=== PATIENT | female | born 1940 | race Caucasian/White ===

== ENCOUNTER 2018-10-09 09:11 | Inpatient (IN) ==
[2018-10-09] MEDS ORDERED: SOLU-MEDROL IV ONE (09:22)
[2018-10-09] MEDS ORDERED: DUONEB (A & A) INH ONE (09:22)
[2018-10-09] MEDS ORDERED: SOLU-MEDROL ONE (09:27)
[2018-10-09 09:33] LABS: ALLEN TEST YES; BE -3.9 mmoll (-3.0-3.0); BLOOD TYPE ARTERIAL; HCO3-(ACT) 21.9 mmoll (20.0-26.0); METHB 0.3 % (0.0-1.5); O2(CT) 11.8 mL/dL (15.0-23.0); O2HB 94.2 % (95.0-99.0); PCO2(98.6) 47 mmHg (35-45); PO2(98.6) 74 mmHg (60-100); SAMPLE BLOOD; SAO2 97.3 % (95.0-100.0); THB 8.8 g/dL (11.5-17.4); pH(98.6) 7.29 (7.35-7.45)
[2018-10-09 09:34] LABS: MODALITY VENTIMASK
--- NOTE | 2018-10-09 09:35 | EKG Report ---
Test Performed on : 10/09/2018 09:17:07 AM Test Reason : JR Blood Pressure : / mmHG Vent. Rate : 125 BPM Atrial Rate : 125 BPM P-R Int : 140 ms QRS Dur : 090 ms QT Int : 318 ms P-R-T Axes : 086 076 184 degrees QTc Int : 458 ms Sinus tachycardia. Left ventricular hypertrophy with repolarization abnormality Abnormal ECG When compared with ECG of 23-FEB-2018 06:21, ST now depressed in Inferior leads Unconfirmed Result
--- NOTE | 2018-10-09 09:38 | PROVIDER DOCUMENTATION ---
HPI-General Adult - General Stated Complaint: SOB Time Seen by Provider: 10/09/18 09:12 Source: patient, EMS Allergies/Adverse Reactions: Patient Allergies Allergy/AdvReac Type Severity Reaction Status Date / Time No Known Allergies Allergy Verified 06/30/18 14:46 Home Medications: Home Medication List Medication Instructions Recorded Confirmed Last Taken Type Gabapentin 800 mg PO BID 05/24/15 06/25/18 02/07/17 21:00 History LISINOpril [Prinivil] 20 mg PO QHS 05/24/15 06/25/18 06/24/18 History Rosuvastatin Calcium [Crestor] 40 mg PO QHS 05/24/15 06/25/18 06/24/18 History Sitagliptin [Januvia] 100 mg PO QHS 05/24/15 06/25/18 06/24/18 History Amitriptyline [Elavil] 50 mg PO HS 02/02/16 06/25/18 06/24/18 History Albuterol 2.5MG/Ipratrop 0.5MG 3 ml INH Q4-6H PRN PRN neb 02/11/17 06/25/18 Unknown Rx [Duoneb (A & A)] Hydrocodone/Acetaminophen [Lorcet 1 tab PO Q4H PRN PRN #30 tab 02/11/17 06/25/18 Unknown Rx 5-325 mg Tablet] Methylprednisolone [Medrol Dosepak] 4 mg PO DIRECTED #1 pkg 02/27/18 06/25/18 Unknown Rx Amoxicillin/Potassium Clav 1 ea PO BID 06/25/18 06/25/18 06/24/18 History [Augmentin 875-125 Tablet] - History of Present Illness -Gen Adult Nature of Presenting Problems: Pt. is 78 yof that presents with c/o SOB. She is brought in by EMS and it is unclear when she began to have this trouble. She has a Hx of COPD and DM. The patient can barely speak and EMS gave one neb treatment on the way to the hospital. Pt. is on 2L O2 at home all the time. Location of Pain/Injury: reports: none. denies: head, face, mouth, neck, chest, upper extremity, hand(s), abdomen, back, pelvis, genitalia, lower extremity, feet, upper body, lower body, generalized, other Pain Radiation: reports: no radiation. denies: arm(s), back, buttocks, chest, epigastric, feet, groin, jaw, flank (L), legs (lower), LLQ, LUQ, neck, periumbilical, flank (R), RLQ, RUQ, shoulder(s), scapula, scrotal, sternal notch, suprapubic, legs (upper), urethral, vaginal, other Quality of Pain: reports: none. denies: aching, burning, pressure, sharp, throbbing, tightness Severity: reports: severe. denies: mild, moderate Onset/Duration: reports: unsure Timing: reports: still present, constant. denies: improving, intermittent, changing over time, getting worse Context/Activities at Onset: reports: none. denies: light activity, moderate activity, vigorous activity, recent emotional stress, recent physical stress, recent trauma history, possible bad food, cold exposure, eating, out of country travel, rest, sleep, sexual activity, other Modifying Factors: improves with: nothing Associated Symptoms: reports: shortness of breath. denies: denies symptoms, anxiety, arm pain, back/neck pain, chest pain, constipation, cough, diaphoresis, diarrhea, dizziness, EENT symptoms, fatigue, fever/chills, genitourinary problems, headaches, heartburn, joint pain, loss of appetite, malaise, muscle aches, sinus congestion/drainage, nausea, rash, seizure, sensory/motor loss, pain with inspiration, swelling/mass in abdomen, syncope, vomiting, weakness, trouble walking, other Similar Symptoms Previously?: Yes Recently seen or treated by another doctor?: No Review of Systems - Adult - REVIEW OF SYSTEMS - ADULT Constitutional: reports: no symptoms reported Eyes: reports: no symptoms reported Ears, Nose, Mouth & Throat: reports: no symptoms reported Cardiovascular: reports: no symptoms reported Respiratory: reports: see HPI, shortness of breath. denies: cough, dyspnea on exertion, pleurisy Gastrointestinal: reports: no symptoms reported Genitourinary: reports: no symptoms reported Musculoskeletal: reports: no symptoms reported Integumentary: reports: no symptoms reported Neurological: reports: no symptoms reported Psychiatric: reports: no symptoms reported Past History - Adult - PAST MEDICAL HISTORY-ADULT Review of Records: reports: Old Records Reviewed, Nursing Assessment Review, Medications Reviewed, Social history reviewed & non-contributory. Major Childhood Illnesses: reports: denies history Cardiovascular: reports: HTN Respiratory: reports: denies history Gastrointestinal: reports: denies history Obstetrical/Gynecological: reports: denies history Genitourinary: reports: denies history Musculoskeletal: reports: denies history Neurological: reports: CVA Endocrine/Immune: reports: Diabetes Other Conditions: reports: denies history - PRIOR SURGERIES/PROCEDURES Surgical/Procedure History: reports: other (rectal sx ) - IMMUNIZATION STATUS Childhood Immunizations: See Nurse Assessment Flu Vaccine: See Nurse Assessment - FAMILY HISTORY Family History: reviewed, not pertinent - SOCIAL HISTORY Smoking: denies Physical Exam-General - PHYSICAL EXAM-ADULT Initial Vital Signs Reviewed: Yes - CONSTITUTIONAL General Appearance: alert, severe distress, thin. negative: anxious, slow to respond, obtunded, combative - EYES Eyes: PERRL/EOMI, pink conjunctivae - HEAD, EARS, NOSE, MOUTH & THROAT HENMT: normocephalic/atraumatic, moist mucous membranes - NECK Neck: non-tender, full range of motion, supple, normal inspection - RESPIRATORY Respiratory: decreased breath sounds, increased rate. negative: crackles, rales, rhonchi - CARDIOVASCULAR Cardiovascular: regular rate, rhythm, tachycardia - GASTROINTESTINAL (ABDOMEN) Abdominal Exam: normal bowel sounds, non tender, soft - LYMPHATIC Lymphatic: no adenopathy - MUSCULOSKELETAL Back Exam: normal inspection, no CVA tenderness, no vertebral tenderness Extremity: normal range of motion, normal inspection Peripheral Pulses: radial (R): 2+, radial (L): 2+ - SKIN Integumentary: normal color, normal turgor, warm/dry - NEUROLOGIC Neurologic: grossly normal, no motor/sensory deficits - PSYCHIATRIC Psych/Mental Status: normal thought content, normal thought process, oriented x 3, anxious. negative: depressed affect, paranoid, tearful Progress - PLAN OF CARE/RESULTS Progress/Plan/Lab Results: Laboratory Results - last 24 hr 10/09/18 09:22 Specimen Type ARTERIAL Sample Site R RADIAL pH 7.29 L pCO2 47 H pO2 74 HCO3 21.9 Base Excess -3.9 L Oxyhemoglobin 94.2 L ABG O2 Sat (Calculated) 11.8 L ABG O2 Saturation 97.3 ABG Carboxyhemoglobin 2.90 H ABG Methemoglobin 0.3 Poncho Test YES A-a O2 Difference 224.0 Total Hemoglobin 8.8 L Lactate 2.80 H Liter Flow 15.0 Blood Gas Modality VENTIMASK FiO2 % 50.0 Orders Category Date Time Status Saline Loc NOW Care 10/09/18 09:21 Active CHEST-PORTABLE [RAD] Stat Exams 10/09/18 09:24 Ordered ABG [RESP] Routine Lab 10/09/18 09:22 Completed CBC WITH ELECTRONIC DIFF [HEME] Stat Lab 10/09/18 09:21 Uncollected CK PROFILE [SP CHEM] Stat Lab 10/09/18 09:21 Uncollected COMPREHENSIVE METABOLIC PANEL [CHEM] Stat Lab 10/09/18 09:22 Uncollected PRO B-NATRIURETIC PEPTIDE Stat Lab 10/09/18 09:22 Ordered TROPONIN T Stat Lab 10/09/18 09:22 Uncollected URINALYSIS W/POSS RFLX CULT [URINALYSIS] Stat Lab 10/09/18 09:22 Uncollected Albuterol 2.5MG/Ipratrop 0.5MG [Duoneb (A & A)] Med 10/09/18 09:22 Discontinued 6 ml INH NOW ONE Methylprednisolone Sod Succ [Solu-Medrol] Med 10/09/18 09:27 Discontinued 125 mg .ROUTE .STK-MED ONE Methylprednisolone Sod Succ [Solu-Medrol] Med 10/09/18 09:22 Discontinued 80 mg IV NOW ONE Aerosol Treatments Routine Oth 10/09/18 09:22 Active Aerosol Treatments Stat Oth 10/09/18 09:22 Active EKG [EKG] Stat Ther 10/09/18 09:21 Ordered Result Diagrams: 10/09/18 09:32 10/09/18 09:32 - EKG 1 Time of EKG reading by physician:: 09:21 EKG Read and Signed by:: Vangie Friedman EKG Interpretation (*Must complete 3 of following elements*): Abnormal Rate: 125 Rhythm: Sinus Tachycardia [place]: normal QRS: normal OK Interval: normal ST Wave: normal - XRAY 1 XRAY Study: Chest ([facility] - [address], [address], [place] [address] [facility] - [address] [place] [address] Department of Imaging Patient: TEREZA SCHAEFER Date: 10/09/18#: [id number] : 1941ADM Status: REG ERAcct#: [id number] Age/Sex: 78/FRoom/Bed: Loc: ED Ordering Physician: Austen Isaac Family Physician: Jigar Arevalo Reason for Procedure: SOB ___ Signed EXAM: CHEST-PORTABLE HISTORY: SOB TECHNIQUE: Chest single view COMPARISON: 06/30/2018 FINDINGS: Interval development of small pleural effusions. There are mild increased interstitial markings. Heart is borderline mildly prominent. Moderate scoliosis. IMPRESSION: Mild pulmonary edema with small pleural effusions Electronically signed by Kofi Nolasco 10/09/2018 10:13 AM 10/09/18 1013 Interpreting Physician: Kofi Nolasco MD Dictated Date/Time: 10/09/18 1013 cc: Austen Isaac; Jigar Aervalo) XRAY Interpretation: See note - CONSULTS/PCP/HOSPITALIST Notification #1 *Consult/PCP/Hospitalist*: FLORENTIN Motta for Dr. Gaines Time Discussed: 11:42 Reason/Comments: Admission Consult Disposition: Will see in ED, Admit Departure - Departure Date of Disposition Decision: 10/09/18 Time of Disposition Decision: 10:08 DIAGNOSIS: COPD exacerbation Pulmonary edema Qualifiers: Chronicity: acute Qualified Code(s): J81.0 - Acute pulmonary edema Disposition: ADMITTED INPATIENT 09 Certified Medical Emergency: Emergent Condition: Stable Referrals and Follow-Ups: Jigar Arevalo CRNP [Primary Care Provider] - - Critical Care Note This patient required my direct & personal management of CC.: Yes Total Time (mins): 35 Critical Care Statement: This patient required my direct personal management to treat or rule out processes, the absence of which, could potentiallly result in sudden, clinically significant life or limb threatening deterioration. Attestation - Physician/ CRYS Attestation Patient care was provided by Advanced Practice Provider:: Yes Advanced Practice Provider:: Austen Isaac Advanced Practice Provider documentation review:: The Mid-level provider documentation, treatment plan and medical decision making was reviewed by the physician who agrees with all treatment and medical decision making by the MLP. The physician spent face to face time with patient:: No Advanced Practice Provider documentation review:: Supervising physician onsite and consulted in the evaluation and care of this patient. The physician did not have a face to face encounter with the patient.
[2018-10-09 09:55] LABS: BASO# 0.05 X1000 (0.0-0.2); BASO% 0.4 % (0.0-0.8); EOS# 0.17 X1000 (0.0-0.7); EOS% 1.3 % (0.0-10.0); HEMOGLOBIN 8.8 g/dL (12.0-16.0); IMM GRAN# 0.02 X1000 (0.0-0.04); IMM GRAN% 0.2 % (0.0-0.5); LYMPH# 1.62 X1000 (1.2-3.4); LYMPH% 12.4 % (20.5-51.1); MCH 23.1 PG (27-31); MCHC 29.3 g/dL (33-37); MCV 78.7 FL (81-99); MONO# 0.95 X1000 (0.11-0.59); MONO% 7.3 % (1.7-9.3); MPV 9.7 FL (7.4-10.4); NEUT# 10.25 X1000 (1.4-6.5); NEUT% 78.4 % (42.2-75.2); PLT 385 X1000 (130-400); RBC 3.81 XMIL (4.2-5.4); RDW 18.4 % (11.5-14.5); WBC 13.06 X1000 (4.8-10.8)
--- NOTE | 2018-10-09 10:16 | Diag Imaging Result Doc PS360 ---
EXAM: CHEST-PORTABLE HISTORY: SOB TECHNIQUE: Chest single view COMPARISON: 06/30/2018 FINDINGS: Interval development of small pleural effusions. There are mild increased interstitial markings. Heart is borderline mildly prominent. Moderate scoliosis. IMPRESSION: Mild pulmonary edema with small pleural effusions Electronically signed by Kofi Nolasco 10/09/2018 10:13 AM
[2018-10-09 10:18] LABS: AGAP 12; ALB/GLOB RATIO 0.9; ALBUMIN 3.9 g/dL (3.5-5.0); ALKALINE PHOSPHATASE 62 U/L (32-104); BUN 22 mg/dL (8-22); CALCIUM 9.2 mg/dL (8.8-10.2); CHLORIDE 105 mmol/L (98-107); CK PROFILE 59 U/L (24-173); COSMO 287; CREATININE 0.6 mg/dL (0.5-0.9); ESTIMATED GFR > 60; GLUCOSE 246 mg/dL (70-104); GOT 22 U/L (10-30); GPT 11 U/L (10-36); POTASSIUM 4.6 mmol/L (3.5-5.1); SODIUM 138 mmol/L (136-145); TCO2 21 mmol/L (25-35); TOTAL BILIRUBIN 0.51 mg/dL (0.20-1.00); TOTAL PROTEIN 8.2 g/dL (6.3-8.3)
[2018-10-09] MEDS ORDERED: LASIX IV ONE (10:27)
[2018-10-09 10:55] LABS: INR 1.15; PROTIME 14.8 Seconds (11.0-16.0)
[2018-10-09 10:57] LABS: PTT 30.9 Seconds (22.3-41.8)
[2018-10-09 10:59] LABS: URINE SOURCE CATH
[2018-10-09] MEDS ORDERED: VANCOMYCIN 1 GM/NS 1 GM/250 ML IVPB IV ONE (11:41)
[2018-10-09] MEDS ORDERED: ZOSYN 3.375 GM in NS 50 ML IV ONE (11:41)
[2018-10-09 11:55] LABS: BILIRUBIN URINE NEGATIVE (NEGATIVE); BLOOD URINE NEGATIVE (NEGATIVE); COLOR YELLOW; GLUCOSE URINE NEGATIVE (NEGATIVE); KETONE URINE NEGATIVE (NEGATIVE); LEUKOCYTES URINE NEGATIVE (NEGATIVE); NITRITE URINE NEGATIVE (NEGATIVE); PROTEIN URINE 200 mg/dL (NEGATIVE); SP GRAVITY URINE 1.019; TURBIDITY URINE CLEAR (CLEAR); UROBILINOGEN URINE 2 mg/dL (NORMAL)
[2018-10-09 11:56] LABS: UR EPITHELIAL CELLS <10 /HPF (<10); URINE BACTERIA NEGATIVE /HPF; URINE RBC <10 /HPF (<10); URINE WBC <10 /HPF (<10)
[2018-10-09] MEDS ORDERED: TYLENOL PO PRN (12:10)
[2018-10-09] MEDS ORDERED: ZOFRAN IV PRN (12:10)
[2018-10-09] MEDS ORDERED: NORCO-7.5 PO PRN (12:10)
[2018-10-09] MEDS ORDERED: VANCOMYCIN IV PER PHARMACY MISC SCH (12:15)
--- NOTE | 2018-10-09 13:44 | HISTORY AND PHYSICAL ---
PRIMARY CARE PROVIDER: Shilpa LERMA. CHIEF COMPLAINT: Shortness of breath. HISTORY OF PRESENT ILLNESS: Ms. Hortensia Lee is an 78-year-old female with a medical history of COPD on 2 L of oxygen who has had to be intubated in the past when she was admitted here, I believe it was January or the last day of 2017 into the 1st part of the year, but currently presented with hypoxia, O2 saturations in the 70s on her 2 L of oxygen. She was given steroids, higher amounts of oxygen, nebulizers which improved her dramatically. She is a little tachypneic, but is refusing the BiPAP, is unsure about how she wants to go about a DNR status or not, will have to further discuss that with [place]. [place] [address] and elevated lactate of 2.8, mildly acidotic on her pH and so we are going to give her broad-spectrum antibiotics, nebulizer steroids. Will move her to [facility] for closer observation. It is noted that for the last 4 weeks she has complained of a 7 pound weight gain with bilateral lower extremity swelling. She does have a +2 lower extremity pitting edema and this is also the amount of time that she has had increased complaints of shortness of breath that apparently worsened this morning prior to presentation. She does have an occasional productive cough. It is white phlegm. She denies any fever. Denies chest pain. She has received Lasix in the emergency department along with a Gloria catheter and is having a great response to this. She was in the last day of January 2018 when she presented. She also had elevated proBNP at that time. An echocardiogram was performed, but the ejection fraction was 55%. There were really no valvular abnormalities. So it could be a cause of poor nutrition and just excessive fluid volume overload. PAST MEDICAL HISTORY: 1. Hypertension. 2. Hyperlipidemia. 3. Diabetes mellitus type 2. 4. COPD. 5. Chronic back pain. 6. Gastric ulcers. 7. Esophageal stricture. 8. Rectal prolapse. SURGICAL HISTORY: 1. Hysterectomy. 2. Appendectomy. 3. Partial gastrectomy. 4. EGD for foreign body removal secondary to esophageal stricture. 5. Lower back surgery. 6. Repair of rectal prolapse. SOCIAL HISTORY: Half pack per day smoker, quit 3 months ago, has smoked for at least 60 years. Denies alcohol or illicit drug use. She lives at home with her daughter. FAMILY HISTORY: Positive for CAD in the mother. ALLERGIES: No known drug allergies. HOME MEDICATIONS: Not reconciled yet. REVIEW OF SYSTEMS: Fourteen point review of systems are complete and all were negative except for those mentioned above in HPI. PHYSICAL EXAMINATION: VITAL SIGNS: Temperature 98.3 degrees, heart rate 106, respiratory rate 27, blood pressure 147/83, O2 saturation 92 to 93% on nasal cannula. GENERAL: Ms. Hortensia Lee is an 78-year-old female. She is in no acute distress. She is able answer questions appropriately. Actually, she might be in mild distress, but it is not severe. She is a little tachypneic. HEENT: Atraumatic, normocephalic. Pupils equal, round, reactive to light. Extraocular movements intact. Mucous membranes are moist. NECK: Trachea midline. CARDIOVASCULAR: S1, S2. Tachycardic rate and rhythm. No rubs, gallops, or murmurs. There is +2 lower extremity pitting edema, 2+ dorsalis pedal pulses, 2+ radial pulses. Negative for carotid bruits. There is no JVD at this time. There may have been earlier prior to receiving Lasix. PULMONARY: Clear to auscultate bilateral breath sounds. Mild accessory muscle use. Mild work of breathing. Tolerating nasal cannula. GI: Soft, concave. Positive bowel sounds x4. EXTREMITIES: Moves all extremities equally. Decreased range of motion. NEUROLOGIC: A and O x3. Follows commands. Sensory is intact. SKIN: Warm, dry, intact. LABORATORY DATA: White blood cells 71489, hemoglobin 8, hematocrit 30, platelet count 285,000. INR is 1.15, PTT is 30.9. ABGs, pH 7.29, pCO2 47, PO2 74, bicarb 21, base excess -3.9, saturation 94%. Carboxyhemoglobin 2.9. Lactate 2.8 and that was on a Venturi mask. Sodium 138, potassium 4.6, BUN 22, creatinine 0.6, glucose 246, calcium 9.2. Magnesium 2.1. Bilirubin 0.51, AST 22, ALT 11. CK 59. Troponin less than 0.01. ProBNP 54298. Albumin 3.9. Serum lactate 2.4. ABG lactate 2.8. Urinalysis, 200 protein, 2 urobilinogen, acetones negative. IMAGING: Chest x-ray, mild pulmonary edema with small pleural effusions. EKG, is a rate of 125, it is sinus tachycardia, the QTc is 458, it is showing some ST depressions in inferior leads and some LVH. ASSESSMENT AND PLAN: 1. Acute on chronic hypoxemic respiratory failure, initially required 15 L 100% non-rebreather, was able to be weaned down after she received nebulizers, steroids and Lasix. Currently, she is on nasal cannula. Refuses to wear BiPAP. PH is 7.29, so will have to repeat that. 2. Chronic obstructive pulmonary disease exacerbation. Nebulizer steroids and antibiotics. 3. Signs of congestive heart failure, systolic. No history of it, but elevated proBNP, pulmonary edema and fluid buildup in the lower extremities. It could just be that she has poor nutritional intake and fluid volume overload. Her kidney function is normal. Will get an echocardiogram today and will schedule her for some Lasix. 4. Hypertension. Once home medications are verified, will get that resumed. 5. Diabetes mellitus type 2. Will do pattern blood glucoses and sliding scale insulin. She has hyperglycemia at this time. 6. Hyperlipidemia. Again, will continue home medications once verified. 7. Chronic back pain. She is requesting her [place] for pain control, so will get her started back on [place]. 8. History of esophageal stricture, rectal prolapse, gastric ulcers, but she is not on any medications at home for this. 9. Possible sepsis. [place]card[place] [address]. Her lactate was as high as 2.8. Given the pulmonary edema and fluid volume overload, she will not get the IV fluids. She is going to get Lasix instead, but she will be started on broad-spectrum antibiotics. Source is unknown. It could be all inflammatory. She will have serial lactates drawn and will follow up on all cultures. 10. Deep venous thrombosis prophylaxis, Lovenox. Dictated by FLORENTIN De Jesus for Carlos Gaines MD cc: FLORENTIN De Jesus MD
[2018-10-09] MEDS: ATROVENT NEB INH SCH ×3 (15:40→23:04)
[2018-10-09] MEDS: XOPENEX NEB INH SCH ×3 (15:41→23:04)
[2018-10-09] MEDS ORDERED: NORCO-10 PO PRN (15:54)
[2018-10-09] MEDS ORDERED: ATIVAN IV ONE (15:56)
[2018-10-09] MEDS ORDERED: SOLU-MEDROL IV SCH (16:00)
[2018-10-09] MEDS: HUMULIN R SUBQ SCH ×2 (16:07→21:08)
[2018-10-09] MEDS ORDERED: DIPRIVAN 1% IV ONE (16:57)
[2018-10-09] MEDS ORDERED: QUELICIN IV ONE ×2 (17:22→17:39)
[2018-10-09] MEDS ORDERED: AMIDATE ONE (17:31)
[2018-10-09] MEDS ORDERED: DIPRIVAN 1% 1,000 MG/100 ML BOTTLE ONE (17:38)
[2018-10-09] MEDS ORDERED: AMIDATE IV ONE (17:39)
[2018-10-09] MEDS: DIPRIVAN 1% 1,000 MG/100 ML BOTTLE IV SCH ×2 (17:43→22:55)
[2018-10-09] MEDS: ZOSYN 3.375 GM in NS 50 ML IV SCH (18:04)
[2018-10-09 18:28] LABS: ALLEN TEST NO; BE -0.4 mmoll (-3.0-3.0); BLOOD TYPE ARTERIAL; HCO3-(ACT) 24.6 mmoll (20.0-26.0); METHB 1.8 % (0.0-1.5); O2(CT) 9.2 mL/dL (15.0-23.0); O2HB 94.5 % (95.0-99.0); PO2(98.6) 91 mmHg (60-100); SAMPLE BLOOD; SAO2 97.4 % (95.0-100.0); SRATE 12 BPM; THB 6.8 g/dL (11.5-17.4); TVOL 450 mL; pH(98.6) 7.27 (7.35-7.45)
[2018-10-09 18:30] LABS: MODALITY VENTILATOR; PCO2(98.6) 58 mmHg (35-45)
--- NOTE | 2018-10-09 18:43 | Diag Imaging Result Doc PS360 ---
CHEST-PORTABLE - 10/09/2018 at 6:13 PM INDICATION: ET tube placement COMPARISON: 9:44 AM FINDINGS: There is an endotracheal tube in good position at about T5-T6. There is severe COPD. There is cardiomegaly and interstitial pulmonary edema. There are trace bilateral pleural effusions. IMPRESSION: Good endotracheal tube placement. Electronically signed by Dallin Santiago 10/09/2018 6:42 PM
[2018-10-09] MEDS: PULMICORT INH SCH (19:57)
[2018-10-09] MEDS: NEURONTIN PO SCH (20:56)
[2018-10-09] MEDS ORDERED: JANUVIA PO SCH (21:00)
[2018-10-09] MEDS ORDERED: CRESTOR PO SCH (21:00)
[2018-10-09] MEDS ORDERED: ELAVIL PO SCH (21:00)
[2018-10-09] MEDS: LASIX IV SCH (21:16)
[2018-10-09] MEDS: SOLU-MEDROL IV SCH (21:16)
[2018-10-09] MEDS: MORPHINE IV PRN (22:56)
[2018-10-10] MEDS: ZOSYN 3.375 GM in NS 50 ML IV SCH ×4 (01:21→17:45)
[2018-10-10] MEDS: XOPENEX NEB INH SCH ×6 (03:09→22:51)
[2018-10-10] MEDS: ATROVENT NEB INH SCH ×7 (03:09→22:51)
[2018-10-10] MEDS: SOLU-MEDROL IV SCH ×3 (04:20→17:45)
[2018-10-10] MEDS: DIPRIVAN 1% 1,000 MG/100 ML BOTTLE IV SCH ×4 (04:20→19:54)
[2018-10-10 04:27] LABS: ALLEN TEST YES; BE 5.8 mmoll (-3.0-3.0); BLOOD TYPE ARTERIAL; HCO3-(ACT) 29.5 mmoll (20.0-26.0); MODALITY VENTILATOR; O2(CT) 12.3 mL/dL (15.0-23.0); O2HB 96.5 % (95.0-99.0); PCO2(98.6) 45 mmHg (35-45); PO2(98.6) 119 mmHg (60-100); SAMPLE BLOOD; SAO2 99.6 % (95.0-100.0); SRATE 12 BPM; THB 8.9 g/dL (11.5-17.4); TVOL 450 mL; pH(98.6) 7.44 (7.35-7.45)
[2018-10-10] MEDS: HUMULIN R SUBQ SCH ×4 (06:07→22:15)
--- NOTE | 2018-10-10 06:31 | Diag Imaging Result Doc PS360 ---
EXAM: CHEST-PORTABLE HISTORY: pulm edema; sob TECHNIQUE: Portable chest single view COMPARISON: 10/09/2018 FINDINGS: Endotracheal tube has its tip in the right mainstem bronchus. The lungs remain well expanded. The heart is not enlarged. Small bilateral pleural effusions. The bilateral infiltrates. Moderate scoliosis. IMPRESSION: Endotracheal tube is in the right mainstem bronchus. This should be pulled back several centimeters. This report was discussed with Eder Batista in the ICU on 10/10/2018 at 6:30 AM and was readback. Electronically signed by Kofi Nolasco 10/10/2018 6:29 AM
[2018-10-10 06:45] LABS: INR 1.15; PROTIME 14.9 Seconds (11.0-16.0); PTT 24.5 Seconds (22.3-41.8)
--- NOTE | 2018-10-10 06:53 | EKG Report ---
Test Performed on : 10/10/2018 06:17:45 AM Test Reason : chest pain Blood Pressure : / mmHG Vent. Rate : 078 BPM Atrial Rate : 202 BPM P-R Int : 000 ms QRS Dur : 090 ms QT Int : 466 ms P-R-T Axes : 088 069 087 degrees QTc Int : 531 ms Atrial flutter. with variable AV block. Voltage criteria for left ventricular hypertrophy ST & T wave abnormality, consider anterior ischemia Prolonged QT Abnormal ECG When compared with ECG of 09-OCT-2018 09:17, (Unconfirmed) Significant changes have occurred Confirmed by Maninder Ortiz MD ([id number]) on 10/13/2018 12:04:13 PM
[2018-10-10 07:09] LABS: SODIUM 139 mmol/L (136-145)
[2018-10-10 07:10] LABS: AGAP 13; ALB/GLOB RATIO 0.8; ALBUMIN 3.5 g/dL (3.5-5.0); ALKALINE PHOSPHATASE 51 U/L (32-104); BUN 27 mg/dL (8-22); CALCIUM 8.9 mg/dL (8.8-10.2); CHLORIDE 101 mmol/L (98-107); CK TOTAL 69 U/L (24-173); COSMO 284; CREATININE 0.7 mg/dL (0.5-0.9); ESTIMATED GFR > 60; GLUCOSE 128 mg/dL (70-104); GOT 23 U/L (10-30); GPT 10 U/L (10-36); MAGNESIUM 1.8 mg/dL (1.5-2.7); POTASSIUM 3.7 mmol/L (3.5-5.1); TCO2 25 mmol/L (25-35); TOTAL BILIRUBIN 0.53 mg/dL (0.20-1.00); TOTAL PROTEIN 8.1 g/dL (6.3-8.3)
[2018-10-10] MEDS: PULMICORT INH SCH ×2 (07:36→19:45)
[2018-10-10 07:50] LABS: HEMATOCRIT 28.9 % (37.0-47.0); HEMOGLOBIN 8.5 g/dL (12.0-16.0); LYMPH# 0.84 X1000 (1.2-3.4); LYMPH% 8.8 % (20.5-51.1); MCH 22.9 PG (27-31); MCHC 29.4 g/dL (33-37); MCV 77.9 FL (81-99); MONO# 0.48 X1000 (0.11-0.59); MPV 9.9 FL (7.4-10.4); NEUT# 8.25 X1000 (1.4-6.5); NEUT% 86.2 % (42.2-75.2); PLT 343 X1000 (130-400); RBC 3.71 XMIL (4.2-5.4); RDW 18.6 % (11.5-14.5); WBC 9.57 X1000 (4.8-10.8)
[2018-10-10] MEDS: NEURONTIN PO SCH (09:11)
[2018-10-10] MEDS: LOVENOX SUBQ SCH (09:18)
[2018-10-10] MEDS: LASIX IV SCH ×2 (09:18→20:02)
[2018-10-10] MEDS: VANCOMYCIN 1,000 MG in NS 250 ML IV SCH (09:38)
[2018-10-10 10:14] LABS: BANDS 2 % (0-1); LYMPHS 16 % (21-51); SEGS 82 % (42-75)
[2018-10-10 10:15] LABS: ANISOCYTOSIS 1+; HYPOCHROM 1+; MICROCYTOSIS 1+
[2018-10-10] MEDS ORDERED: SODIUM CHLORIDE 0.9% INJ SCH (11:30)
[2018-10-10] MEDS ORDERED: SOLU-MEDROL IV SCH ×2 (11:45→15:00)
[2018-10-10] MEDS: PROTONIX IV SCH (11:49)
--- NOTE | 2018-10-10 12:07 | PROGRESS NOTE ---
DATE: 10/10/2018 SUBJECTIVE: Patient has no major complaints. OBJECTIVE: Vital Signs: Blood pressure 149/73, heart rate of 85, respiratory rate of 23, temperature was 98.2 degrees. Cardiovascular: Regular rate and rhythm, a little bit tachy. Pulmonary: Bilateral breath sounds. Clear to auscultation. GI: Soft, nontender, nondistended. Bowel sounds are positive. LABORATORY DATA: White count 9.5, H and H 8.5 and 28, platelets 343. A pH 7.44, pCO2 45, PaO2 119. PROBLEM LIST: 1. Acute respiratory failure likely multifactorial. At this point, her chest x-ray to me looks worse on the right base, which I think is more likely related to pneumonia and infiltrate. She has a history of esophageal stricture, so she may have had an aspiration event. Clinically though, she is better. Her pH is better. She is down to 40%. She is breathing comfortably. She is on the ventilator waiting pulmonary final recommendations, but she is improving. 2. Pulmonary edema. Unclear if this is true cardiac failure. It could be takotsubo's. In any case, echocardiogram has been done. Dr. Lechuga has evaluated the patient. Will review the echocardiogram and continue. I still think she has got pulmonary edema, so I will continue diuretics through today. Kidney function is stable. 3. Type 2 diabetes. We will follow closely. She is on steroids because she had a lot of bronchospasm, and I am going to decrease those today and follow. 4. Esophageal stricture. We will need to re-evaluate her gastrointestinal output. I will probably start off with a barium enema if I can, and then we will go from there. She will need proton pump inhibitor and we will follow. 5. Disposition: Pending her clinical status, but overall she has improved since yesterday. Hopefully, continue to improve and proceed with extubation. 6. Aspiration type pneumonia. She is currently on vancomycin and Zosyn. We will continue that for the time being. cc: Carlos Gaines MD
--- NOTE | 2018-10-10 13:46 | ECHO REPORT ---
ORDER DATE: 10/09/2018 MEASUREMENTS: Septal thickness 1.0, left ventricular end-diastole 5.2, posterior wall thickness 0.8, left atrium 5.2. SUMMARY: 1. Technically difficult study due to limited parasternal acoustic window quality. 2. The aortic valve is trileaflet and demonstrates fibrocalcific changes, particularly of noncoronary cusp with reduced aortic valve leaflet mobility. The peak gradient across aortic valve is 30 mmHg with a mean gradient of 16 mmHg. Calculated aortic valve area by Doppler is 1.2 cm2, suggesting moderate aortic stenosis. There is mild aortic regurgitation. Mitral valve leaflets are mildly thickened. Mitral valve opening is adequate. There is moderate mitral regurgitation. Tricuspid valve was without evidence of structural abnormality while pulmonic valve is not well demonstrated. There is moderate tricuspid regurgitation. The estimated systolic PA pressure by Doppler is 70 to 75 mmHg, suggesting moderate to severe pulmonary hypertension. The aortic root is normal size. 3. Normal left ventricular dimensions. There is severe hypokinesis. Estimated left ventricular ejection fraction is approximately 30%. There is severe hypokinesis of the septum and anteroseptal wall. There is also apical hypokinesis. Left atrium is moderately enlarged. The right atrium is [id number] enlarged. The right ventricle is normal in size with grossly preserved right ventricular systolic function. 4. No pericardial effusion. 5. Appearance of inferior vena cava suggests elevated central venous pressure. cc: MD Ángela Bingham CRNP
--- NOTE | 2018-10-10 15:07 | CONSULTATION ---
DATE OF CONSULTATION: 10/10/2018 IMPRESSION: 1. Hypoxemic respiratory failure. 2. Possible aspiration pneumonitis. 3. Cannot exclude component of acute pulmonary edema although patient's chest x-ray appears to have progressively worsened despite diuresis with labs suggesting prerenal azotemia. Echocardiography pending. 4. History of esophageal stricture where previous dilatation several years ago. Patient has according to family had some difficulty with choking. 5. Hypertension. 6. Type 2 diabetes mellitus. 7. Hyperlipidemia. RECOMMENDATIONS: 1. Followup echocardiography. 2. Hold on further diuresis at this point. 3. Supportive care as you are doing with coverage for possible pneumonia. 4. Ultimately patient would likely benefit from GI evaluation for possible recurrent esophageal stricture. HISTORY: This 78-year-old white female with past history of COPD, hypertension, hyperlipidemia, type 2 diabetes mellitus and esophageal stricture was admitted with progressive dyspnea and hypoxemia. Despite efforts to diurese her for abnormal chest x-ray, she progressed to respiratory failure and has been intubated. Her family indicates that she abruptly started having shortness of breath upon awaking yesterday. She had previously had some tendency for lower extremity swelling. There has been no chest pain. She has history of esophageal stricture in the past which was dilated. She quit eating steak 2-3 years ago because of difficulty swallowing steak. She has had occasion to have some choking when she eats. The patient is not able to give any history as she is sedated on ventilator. She had previous echocardiography this past January which indicated normal left ventricular ejection fraction. PAST MEDICAL HISTORY: 1. COPD. 2. Hypertension. 3. Hyperlipidemia. 4. Type 2 diabetes mellitus. 5. History of peptic ulcer disease. 6. History of esophageal stricture requiring dilatation in the past. 7. Rectal prolapse. 8. Chronic back pain. PAST SURGICAL HISTORY: Includes hysterectomy, appendectomy, partial gastrectomy, upper GI endoscopy to remove foreign body (food) due to esophageal stricture approximately 2-3 years ago, lower back surgery, and repair of rectal prolapse. ALLERGIES: She has no known drug allergies. MEDICATIONS PRIOR TO ADMISSION: As listed. SOCIAL HISTORY: She lives at home. She has history of smoking but quit 3 months ago. She previously smoked for approximately 60 years. She does not use alcohol. FAMILY HISTORY: Negative for premature coronary disease. REVIEW OF SYSTEMS: Not obtainable given patient sedated on ventilator. PHYSICAL EXAMINATION: General: This is a thin, elderly white female on ventilator who is sedated. Vital signs: Blood pressure 140/70, heart rate 84, oxygen saturation 100% with ventilator setting at FiO2 of 40%. HEENT: Mucous membranes are dry. Neck: Supple without discernible jugular distention. Chest: Clear to auscultation anteriorly. Cardiac: Reveals a regular rate and rhythm with very soft systolic murmur at the right upper sternal border. No gallop could be appreciated. Abdomen: Soft. Bowel sounds are normal. Extremities: Warm and without edema. LABORATORY DATA: Includes a white blood cell count of 9.57, hematocrit 28.9, hemoglobin 8.5, platelet count 343,000. Sodium 139, potassium 3.7, chloride 101, carbon dioxide 25, BUN 27, creatinine 0.7, glucose 128. Troponin T initially less than 0.01. Followup troponin T less than 0.01. Twelve lead EKG demonstrates sinus tachycardia and left hypertrophy with repolarization abnormality. cc: Con Lechuga MD
--- NOTE | 2018-10-10 15:45 | CONSULTATION ---
DATE OF CONSULTATION: 10/10/2018 REQUESTING PROVIDER: Dr. Ruiz Gaines. REASON FOR CONSULTATION: Respiratory failure. HISTORY OF PRESENT ILLNESS: This is an 78-year-old female with a medical history of COPD with chronic hypoxic respiratory failure, hypertension, hyperlipidemia, diabetes mellitus type 2, chronic back pain, gastric ulcers, esophageal stricture and rectal prolapse. 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 Initial workup in the ER revealed acute on chronic hypoxic respiratory failure, chronic obstructive pulmonary disease exacerbation, congestive heart failure and possible sepsis. The patient was initially admitted to the [facility] for further evaluation and management. Yesterday afternoon, patient developed tachycardia with increase work of breathing. She eventually required intubation. The patient currently is still intubated and sedated. The patient's son is at the bedside. He reported he knows little about the patient as patient actually lives with his sister who is the patient's daughter. All other information is collected from the E-chart. PAST MEDICAL HISTORY: 1. Chronic obstructive pulmonary disease with chronic hypoxic respiratory failure. On home oxygen at 2 L as needed, mainly used at bedtime. 2. Hypertension. 3. Hyperlipidemia. 4. Diabetes mellitus type 2. 5. Chronic back pain. 6. Gastric ulcers. 7. Esophageal stricture. 8. Rectal prolapse. PAST SURGICAL HISTORY: 1. Hysterectomy. 2. Appendectomy. 3. Partial gastrectomy. 4. Esophagogastroduodenoscopy for foreign body removal secondary to esophageal stricture. 5. Lower back surgery. 6. Repair of rectal prolapse. SOCIAL HISTORY: Per H&P, patient has been smoking more than 60 years. She currently smokes half pack per day. She tried to quit 3 months ago. She has no history of alcohol or illicit drug use. She lives at home with her daughter. FAMILY HISTORY: Positive for coronary artery disease and congestive heart failure in the mother's side. ALLERGIES: No known drug allergies. REVIEW OF SYSTEMS: Unable to be obtained. PHYSICAL EXAMINATION: Vital Signs: Temperature 98.2 degrees, blood pressure 131/59, pulse 74, respiratory rate 16, oxygen saturation 99% on mechanical ventilator with spontaneous rate FiO2 40%, tidal volume 450 and PEEP 5. General: Chronically ill appearing, malnourished, intubated and sedated. HEENT: Atraumatic, normocephalic. Trachea midline. ET tube in place. Mucosa pink and slightly dry. Respiratory: Mechanically ventilated. Symmetrical excursion. Clear to auscultation bilaterally. Cardiovascular: Regular rate and rhythm. Gastrointestinal: Soft, flat, normoactive bowel sounds in all 4 quadrants. Extremities: No pedal edema. No cyanosis. No clubbing. Dorsalis pedis 1+ bilaterally. Neurologic: Sedated, unresponsive to any verbal stimuli. LAB DATA: White blood cell 9.57, hemoglobin 8.5, hematocrit 28.9, platelets 343,000. Sodium 139, potassium 3.7, chloride 101, carbon dioxide 25, BUN 27, creatinine 0.7, glucose 128. ABG, pH 7.44, pCO2 45, PO2 119, HC03 29.5, base excess 5.8 and oxyhemoglobin 96.5. IMAGING DATA: Chest x-ray revealed small bilateral pleural effusions, bilateral infiltrates and moderate scoliosis. ASSESSMENT: This is an 78-year-old female with a medical history of chronic obstructive pulmonary disease with chronic hypoxic respiratory failure, hypertension, hyperlipidemia, diabetes mellitus type 2, chronic back pain, gastric ulcers, esophageal stricture, and rectal prolapse. She has been admitted with acute on chronic hypoxic respiratory failure, chronic obstructive pulmonary disease exacerbation, likely congestive heart failure and possible sepsis. 1. Acute on chronic hypoxic respiratory failure requiring intubation yesterday afternoon. 2. Chronic obstructive pulmonary disease. 3. Possible aspiration pneumonia. 4. Possible congestive heart failure. PLAN: 1. Continue AC mechanical ventilator. We will start weaning trials when appropriate. 2. Continue antibiotics and bronchodilators. Continue diuretics as prescribed. 3. Follow up with ABG, blood culture, and chest x-ray. 4. Continue deep venous thrombosis and gastrointestinal prophylaxis. 5. Further recommendations pending hospital course. Thank you for the courtesy of this consult. Dictated by FLORENTIN Tang for Ofelia Arnett MD cc: FLORENTIN Tang MD [facility]
[2018-10-10] MEDS: MORPHINE IV PRN (19:54)
[2018-10-11] MEDS: ZOSYN 3.375 GM in NS 50 ML IV SCH ×4 (00:15→17:12)
[2018-10-11] MEDS: DIPRIVAN 1% 1,000 MG/100 ML BOTTLE IV SCH ×4 (00:16→17:49)
[2018-10-11] MEDS: MORPHINE IV PRN ×3 (02:06→20:36)
[2018-10-11] MEDS: SOLU-MEDROL IV SCH ×3 (02:06→20:36)
[2018-10-11] MEDS: ATROVENT NEB INH SCH ×5 (03:14→23:35)
[2018-10-11] MEDS: XOPENEX NEB INH SCH ×6 (03:14→23:35)
[2018-10-11] MEDS: LABETALOL IV PRN ×3 (03:45→22:31)
[2018-10-11 04:26] LABS: ALLEN TEST YES; BE 6.7 mmoll (-3.0-3.0); BLOOD TYPE ARTERIAL; HCO3-(ACT) 30.2 mmoll (20.0-26.0); METHB 1.5 % (0.0-1.5); O2(CT) 13.7 mL/dL (15.0-23.0); O2HB 96.2 % (95.0-99.0); PCO2(98.6) 39 mmHg (35-45); PO2(98.6) 178 mmHg (60-100); SAMPLE BLOOD; SAO2 99.1 % (95.0-100.0); SRATE 14 BPM; THB 9.8 g/dL (11.5-17.4); TVOL 450 mL
[2018-10-11 04:27] LABS: MODALITY VENTILATOR
[2018-10-11] MEDS: HUMULIN R SUBQ SCH ×4 (06:03→20:23)
[2018-10-11 06:24] LABS: BASO# 0.01 X1000 (0.0-0.2); BASO% 0.1 % (0.0-0.8); HEMATOCRIT 31.1 % (37.0-47.0); HEMOGLOBIN 9.8 g/dL (12.0-16.0); IMM GRAN# 0.02 X1000 (0.0-0.04); IMM GRAN% 0.1 % (0.0-0.5); LYMPH# 0.49 X1000 (1.2-3.4); LYMPH% 3.6 % (20.5-51.1); MCH 23.8 PG (27-31); MCHC 31.5 g/dL (33-37); MCV 75.5 FL (81-99); MONO# 0.47 X1000 (0.11-0.59); MONO% 3.5 % (1.7-9.3); MPV 10.4 FL (7.4-10.4); NEUT# 12.63 X1000 (1.4-6.5); NEUT% 92.7 % (42.2-75.2); PLT 393 X1000 (130-400); RBC 4.12 XMIL (4.2-5.4); RDW 18.7 % (11.5-14.5); WBC 13.62 X1000 (4.8-10.8)
[2018-10-11 07:09] LABS: CALCIUM 8.9 mg/dL (8.8-10.2); CREATININE 0.9 mg/dL (0.5-0.9); MAGNESIUM 1.8 mg/dL (1.5-2.7); POTASSIUM 2.7 mmol/L (3.5-5.1)
--- NOTE | 2018-10-11 07:17 | Diag Imaging Result Doc PS360 ---
CHEST-1 VIEW - 10/11/2018 INDICATION: SOB COMPARISON: 10/10/2018 FINDINGS: The endotracheal tube has been adjusted. The tip is now at T3-T4. Stable hyperexpanded lungs. Stable cardiomegaly and pulmonary vascular congestion. Stable bilateral infiltrates most compatible with pulmonary edema. Stable small bilateral pleural effusions. IMPRESSION: Endotracheal tube adjusted. Tubes in good position. Otherwise, no change from prior. Electronically signed by Dallin Santiago 10/11/2018 7:14 AM
[2018-10-11] MEDS: PULMICORT INH SCH ×2 (07:34→19:30)
[2018-10-11 07:37] LABS: BANDS 4 % (0-1); LYMPHS 2 % (21-51); MONO 6 % (1-9); SEGS 88 % (42-75)
[2018-10-11 07:38] LABS: ANISOCYTOSIS 1+; HYPOCHROM 1+; POIKILOCYTOSIS 1+; TARGET CELLS 1+
[2018-10-11] MEDS: LASIX IV SCH ×2 (08:37→20:36)
[2018-10-11] MEDS: LOVENOX SUBQ SCH (08:37)
[2018-10-11] MEDS: POTASSIUM CHLORIDE 20 MEQ/SWI 20 MEQ/100 ML IVPB IV SCH ×2 (09:34→11:20)
[2018-10-11] MEDS: VANCOMYCIN 1,000 MG in NS 250 ML IV SCH (09:47)
[2018-10-11] MEDS: PROTONIX IV SCH (11:27)
--- NOTE | 2018-10-11 14:53 | PROGRESS NOTE ---
DATE: 10/11/2018 SUBJECTIVE: The patient continues on ventilator and sedated. OBJECTIVE: Vital Signs: Blood pressure 157/87, heart rate 82, oxygen saturation 98%, with ventilator setting of FiO2 of 40%. Neck: There is no significant jugular distention. Chest: Clear to auscultation anteriorly. Cardiac: Regular rate and rhythm, without appreciable murmur or gallop. Extremities: There is no evidence of peripheral edema. IMAGING AND LABORATORY DATA: Laboratory data includes a white blood cell count of 13.62, hematocrit 31.1, hemoglobin 9.8, platelet count 393,000. Sodium 140, potassium 2.7, chloride 98, carbon dioxide 27, BUN 37, creatinine 0.9, glucose 149. Echocardiography noteworthy for a left ventricular ejection fraction of approximately 30% with hypokinesis of the septum and anteroseptal wall, as well as hypokinesis of the apex. Moderate mitral regurgitation also demonstrated, as well as moderate aortic stenosis. [id number] pulmonary hypertension demonstrated. IMPRESSION: 1. Hypoxemic respiratory failure. 2. Pulmonary edema. 3. Possible associated aspiration pneumonitis. 4. Cardiomyopathy, probably ischemic in origin, with moderate aortic stenosis, moderate mitral regurgitation, and [id number] pulmonary hypertension. 5. Esophageal stricture. 6. Hypertension. 7. Type 2 diabetes mellitus. 8. Hyperlipidemia. RECOMMENDATIONS: 1. Continue to diurese as tolerated. 2. Hopefully, the patient will be able to be weaned off of the ventilator in the next 24 to 48 hours. cc: Con Lechuga MD
--- NOTE | 2018-10-11 15:30 | PROGRESS NOTE ---
DATE: 10/11/2018 SUBJECTIVE: Patient has no major complaints but she is intubated and sedated. OBJECTIVE: Blood pressure 162/79, heart rate 74, respiratory rate 23. Temperature, I think she is afebrile. Actually, she was 100.1 yesterday. Cardiovascular: Regular rate and rhythm. Pulmonary: Bilateral breath sounds clear to auscultation. GI: Soft, nontender, nondistended. Bowel sounds were positive. Extremity Examination: No clubbing or cyanosis. Lymphatic Examination: No peripheral edema. Neurological: Examination was nonfocal. Laboratory Data: Her white count is 13, hemoglobin and hematocrit 9 and 31, platelets 399,000. PH 7.5, pCO2 of 39, PaO2 of 178. That is on 40%. Potassium is down to 2.7. PROBLEM LIST: 1. Acute respiratory failure. We will continue antibiotics, breathing treatments, and follow. She was weaned but she did not pass her weaning trial today. 2. Pulmonary edema. She does have congestive heart failure which is a progression from previous so this will need to be worked up. Her ejection fraction is down the 30% with severe hypokinesis. Possibly, this is related to sepsis but her ejection fraction was normal in January so this is a fairly big change. We will continue diuretics and follow. 3. Right lower lobe pneumonia, possibly aspiration type. She is on antibiotics which are vancomycin and Zosyn. Day 3 on the vancomycin and day 3 on the Zosyn. Her x-rays look stable. I am going to wean her steroids because I do not appreciate any more wheezing at this point, may be clouding the picture in relationship to her leukocytosis. 4. Esophageal stricture. We will continue a proton pump inhibitor. She will need a gastroenterology evaluation or upper or a barium swallow when she is extubated. 5. Hypokalemia. We will supplement and follow. 6. Disposition, pending clinical status. cc: Carlos Gaines MD
[2018-10-12] MEDS: ZOSYN 3.375 GM in NS 50 ML IV SCH ×4 (00:45→18:00)
[2018-10-12] MEDS: DIPRIVAN 1% 1,000 MG/100 ML BOTTLE IV SCH ×2 (01:17→06:00)
[2018-10-12] MEDS: XOPENEX NEB INH SCH ×6 (03:37→23:21)
[2018-10-12] MEDS: ATROVENT NEB INH SCH ×6 (03:37→23:21)
[2018-10-12 04:29] LABS: ALLEN TEST YES; BE 10.2 mmoll (-3.0-3.0); BLOOD TYPE ARTERIAL; HCO3-(ACT) 32.9 mmoll (20.0-26.0); METHB 0.7 % (0.0-1.5); O2(CT) 15.4 mL/dL (15.0-23.0); O2HB 97.5 % (95.0-99.0); PCO2(98.6) 29 mmHg (35-45); PO2(98.6) 194 mmHg (60-100); SAMPLE BLOOD; SAO2 100.6 % (95.0-100.0); SRATE 12 BPM; THB 10.9 g/dL (11.5-17.4); TVOL 450 mL
[2018-10-12 04:32] LABS: MODALITY VENTILATOR; pH(98.6) 7.64 (7.35-7.45)
[2018-10-12] MEDS: HUMULIN R SUBQ SCH ×4 (06:25→21:15)
[2018-10-12 06:32] LABS: HEMATOCRIT 35.3 % (37.0-47.0); HEMOGLOBIN 10.8 g/dL (12.0-16.0); MCH 23.7 PG (27-31); MCHC 30.6 g/dL (33-37); MCV 77.4 FL (81-99); MPV 10.4 FL (7.4-10.4); RBC 4.56 XMIL (4.2-5.4); RDW 18.8 % (11.5-14.5); WBC 14.61 X1000 (4.8-10.8)
[2018-10-12 07:05] LABS: AGAP 18; BUN 44 mg/dL (8-22); CALCIUM 8.9 mg/dL (8.8-10.2); CHLORIDE 99 mmol/L (98-107); COSMO 304; CREATININE 0.8 mg/dL (0.5-0.9); ESTIMATED GFR > 60; GLUCOSE 142 mg/dL (70-104); POTASSIUM 2.9 mmol/L (3.5-5.1); SODIUM 146 mmol/L (136-145); TCO2 29 mmol/L (25-35)
--- NOTE | 2018-10-12 07:28 | Diag Imaging Result Doc PS360 ---
EXAM: CHEST-1 VIEW INDICATION: SOB TECHNIQUE: One view COMPARISON: 10/11/2018 FINDINGS: The ET tube is in approximately stable position. Mild infiltrate bilaterally likely representing pulmonary edema is stable to marginally improved. No new consolidation is identified. Cardiac silhouette is stable. IMPRESSION: Stable to marginal improvement of mild pulmonary edema. Electronically signed by Tyron Harper 10/12/2018 7:26 AM
[2018-10-12] MEDS: PULMICORT INH SCH ×2 (08:05→19:20)
[2018-10-12] MEDS: VANCOMYCIN 1,000 MG in NS 250 ML IV SCH (08:35)
[2018-10-12] MEDS: SOLU-MEDROL IV SCH (08:35)
[2018-10-12] MEDS: LASIX IV SCH (08:35)
[2018-10-12] MEDS: LOVENOX SUBQ SCH (08:35)
[2018-10-12] MEDS: MORPHINE IV PRN (08:53)
--- NOTE | 2018-10-12 08:53 | HISTORY AND PHYSICAL ---
DATE: 10/10/2018 ADDENDUM: This will be an H and P addendum because I saw her yesterday 10/09 around 5:30, 6:00 I think. When I saw her, she was breathing 30 times a minute. Heart rate was in the 130s. She was minimally responsive and not appropriate. She looked like she was in respiratory distress. Saturations were 100% on a non-rebreather but she was not breathing very well. I discussed with the family. They were reluctant to make any end of life decisions, but also they did want her to go on BiPAP. Apparently this happened in February and she had to be intubated at that point. Since did not want to pursue comfort care measures, we elected to be more aggressive. I felt she was decompensating and she would decompensate further so we went ahead and intubated her, had her intubated per DR. Guzman and his crew. The patient has rales and rhonchi. I felt like this is likely initially a pulmonary edema, but there may be some underlying pneumonia as well, so we will continue treatment and follow closely. The patient critically ill and updated family. Again, this is a [id number] encounter note with Ángela España, but 32 minute critical care note Ángela España independent of Ángela España's assessment for respiratory failure requiring mechanical ventilation. cc: Carlos Gaines MD
[2018-10-12] MEDS ORDERED: PRECEDEX 200 MICROGM in NS 48 ML IV SCH (09:45)
[2018-10-12 10:32] LABS: ALLEN TEST YES; BLOOD TYPE ARTERIAL; HCO3-(ACT) 34.9 mmoll (20.0-26.0); METHB 1.4 % (0.0-1.5); O2(CT) 15.8 mL/dL (15.0-23.0); PCO2(98.6) 42 mmHg (35-45); PO2(98.6) 67 mmHg (60-100); SAMPLE BLOOD; SAO2 94.9 % (95.0-100.0); THB 12.2 g/dL (11.5-17.4); pH(98.6) 7.55 (7.35-7.45)
[2018-10-12 10:33] LABS: MODALITY VENTILATOR
[2018-10-12] MEDS: POTASSIUM CHLORIDE 20 MEQ/SWI 20 MEQ/100 ML IVPB IV SCH ×2 (11:15→12:10)
--- NOTE | 2018-10-12 11:19 | PROGRESS NOTE ---
DATE: 10/12/2018 SUBJECTIVE: The patient has no major complaints. OBJECTIVE: Blood pressure 174/78, heart rate of 81, respiratory rate of 28, temperature 98.2 degrees. Cardiovascular: Regular rate and rhythm. Pulmonary: Bilateral breath sounds clear to auscultation. GI: Soft, nontender, nondistended. Bowel sounds were positive. White count is 14, hemoglobin and hematocrit 10 and 35, platelets 383,000. PH 7.55, pCO2 of 42 PaO2 of 67. Sodium 146, potassium 2.9. PROBLEM LIST: 1. Acute respiratory failure due to possible pneumonia versus pulmonary edema. Her chest x-ray has almost completely cleared up at the right base today so it would argue that this is more pulmonary edema. I am going to cut down a little bit on her Lasix because she seems to be doing better. 2. Pulmonary edema. Continue intravenous antibiotics. I do think she has an acute systolic heart failure exacerbation. We will treat accordingly. Cardiology is following. 3. Right lower lobe. She is on vancomycin and Zosyn. I think I am going to cut down on her vancomycin. We will check a procalcitonin. Continue to wean steroids. 4. Esophageal stricture. I think I am going to get a gastroenterology opinion today. 5. Hypokalemia. We will supplement and follow. DISPOSITION: Pending her clinical status. cc: Carlos Gaines MD
[2018-10-12] MEDS: PROTONIX IV SCH (12:00)
--- NOTE | 2018-10-12 13:06 | GASTROENTEROLOGY CONSULTATION ---
DATE: 10/12/2018 ATTENDING PHYSICIAN: Dr. Gaines PRIMARY CARE DOCTORS: FLORENTIN Moses REASON FOR CONSULTATION: History of esophageal stricture. HISTORY OF PRESENT ILLNESS: Ms. Lee is an 78-year-old female who was admitted on 10/09/2018 for progressive dyspnea and hypoxia. She progressed to respiratory failure and has been intubated. According to the patient's daughter at bedside, the patient abruptly starting having shortness of breath upon waking up on the day of admission. She has had a history of esophageal stricture in the past and has had it dilated. According to the records, in 2017, she had an EGD with disimpaction of food bolus done by Dr. Gong. She also has history of gastrectomy in the distant past. According to the daughter, the patient did have some history of choking when she was eating some solids, like steak. She has been restricting oral intake of steak for the last couple of years. During the hospital stay, she is being treated for possible aspiration pneumonia, hypoxic respiratory failure. Gastroenterology consulted for management of possible esophageal stricture. PAST MEDICAL HISTORY: 1. COPD. 2. Hypertension. 3. Hyperlipidemia. 4. Type 2 diabetes. 5. History of peptic ulcer disease. 6. History of esophageal stricture requiring dilation in the past. 7. Rectal prolapse. 8. Chronic back pain. PAST SURGICAL HISTORY: Hysterectomy, appendectomy, partial gastrectomy, upper GI endoscopy to remove the foreign body of food due to esophageal stricture about 2 to 3 years ago [place] [address] Gong, lower back surgery, history of repair of rectal prolapse. ALLERGIES: No known drug allergies. MEDICATIONS IN THE HOSPITAL: Morphine, Tylenol, Pulmicort, Lovenox, Lasix, Humulin regular insulin subcutaneously, ipratropium bromide, potassium chloride, labetalol, levalbuterol, methylprednisolone, Zofran, Protonix once daily, dexmedetomidine IV, propofol IV, Zosyn IV q.6 hours. REVIEW OF SYSTEMS: Could not be obtained. The patient is intubated and vented.Vital signs: Temperature of 98.2, pulse rate of 81, respiratory rate 20, blood pressure 174/78, saturating 92% on mechanical ventilator FiO2 40%. Body weight of 105 pounds. BMI 19.2 kg. General: Thinly built, lying in bed, intubated, ventilated and sedated. HEENT: Positive pallor. No icterus. ET tube in place. Neck: Supple. Abdomen: Soft, nontender. No guarding. No rebound. Extremities: No cyanosis, clubbing. Neurologic: She is sedated. LABS: Hemoglobin and hematocrit are 10.8 and 35.3, white count of 14.7, platelet count of 383,000. ABG showing pH of 7.55, pCO2 of 42, PO2 of 67, and that is on 40% FiO2. Sodium 140, potassium 2.9, chloride 99, bicarb 29, anion gap of 18, BUN of 44, creatinine 0.8, glucose of 142, calcium is 8.9. Sputum culture showing gram-positive cocci. Blood culture x2 negative at 48 hours on 10/09/2018. IMAGING: Chest x-ray on 10/12/2018 showed stable to marginal improvement of mild pulmonary edema. IMPRESSION AND PLAN: 1. History of esophageal stricture. Required food disimpaction [place] [address] Gong. The patient is a patient of Dr. Farrell. I will try to obtain records from Dr. Farrell's clinic today. At this moment, it is very hard to tell if the patient has any active stricture or not. Once she is extubated and is improving from a cardiopulmonary standpoint, then we may have to do barium study to evaluate for possible esophageal stricture. This can be followed with upper endoscopy if the barium study reveals any pathology. In the meanwhile, we will keep her on Protonix 40 mg once daily. 2. Acute respiratory failure secondary to possible pneumonia versus pulmonary edema. She is on Lasix, and she is on antibiotics. This is being treated by the primary care team. Cardiology team is on board, and pulmonary team is on board. 3. Pulmonary edema. Cardiology on board. 4. Possible pneumonia. Pulmonary team is on board. She is on vancomycin and Zosyn. They are weaning down her steroids. 5. Electrolyte imbalance. Being treated by primary care team. 6. We will start her on bowel regimen with Dulcolax once daily. 7. The above plan was discussed with the patient and the patient's family at bedside and also the patient's nurse at bedside, and all questions were answered. Please call us with any further questions. cc: MD Carlos Howell MD Kevin Crnp Campbell MTDD
--- NOTE | 2018-10-12 14:31 | PROGRESS NOTE ---
DATE: 10/12/2018 SUBJECTIVE: Patient has been extubated. She continues on oxygen by mask. She acknowledges some shortness of breath. There was no chest pain. OBJECTIVE: Vital Signs: Blood pressure 174/78, heart rate 81, respiratory rate 28, and oxygen saturation 94%. Neck: There is no significant jugular venous distention. Auscultation of the chest reveals a few inspiratory crackles in the right base. Cardiac: Reveals a regular rate and rhythm without appreciable murmur or gallop. There is no evidence of peripheral edema. LABORATORY DATA: Includes a white blood cell count 14.61, hematocrit 35.3, hemoglobin 10.8, and platelet count 383,000. Sodium 146, potassium 2.9, chloride 99, carbon dioxide 29, BUN 44, and creatinine 0.8. Glucose 142. IMPRESSION: 1. Hypoxemic respiratory failure. 2. Pulmonary edema. 3. Possible associated aspiration pneumonitis. 4. Cardiomyopathy probably ischemic in origin with moderate aortic stenosis and moderate mitral regurgitation as well as moderate to severe pulmonary hypertension. 5. Esophageal stricture. 6. Hypertension. 7. Type 2 diabetes mellitus. 8. Hyperlipidemia. RECOMMENDATIONS: 1. Agree with decreasing Lasix dose given radiographic improvement on chest x-ray and emergence of prerenal azotemia and hypernatremia on labs. We have reduced dose to 40 mg IV daily. 2. Add low-dose angiotensin receptor blocking agent as tolerated. 3. Overall conservative management from a cardiovascular standpoint. cc: Con Lechuga MD
[2018-10-12] MEDS ORDERED: ATIVAN IV PRN (16:03)
[2018-10-12] MEDS: LABETALOL IV PRN (16:26)
[2018-10-12] MEDS: ASPIRIN PO SCH (18:11)
[2018-10-12] MEDS: COZAAR PO SCH (18:11)
[2018-10-12] MEDS: DULCOLAX PR SCH (20:44)
[2018-10-13] MEDS: ZOSYN 3.375 GM in NS 50 ML IV SCH ×4 (00:22→18:44)
[2018-10-13] MEDS: ATROVENT NEB INH SCH ×6 (03:29→23:19)
[2018-10-13] MEDS: XOPENEX NEB INH SCH ×6 (03:29→23:19)
[2018-10-13 04:49] LABS: ALLEN TEST YES; BE 9.2 mmoll (-3.0-3.0); BLOOD TYPE ARTERIAL; HCO3-(ACT) 32.1 mmoll (20.0-26.0); METHB 1.2 % (0.0-1.5); O2(CT) 17.3 mL/dL (15.0-23.0); PCO2(98.6) 39 mmHg (35-45); PO2(98.6) 118 mmHg (60-100); SAMPLE BLOOD; SAO2 98.7 % (95.0-100.0); THB 12.7 g/dL (11.5-17.4); pH(98.6) 7.53 (7.35-7.45)
[2018-10-13 04:50] LABS: MODALITY COOL AEROSOL
[2018-10-13] MEDS: LABETALOL IV PRN ×2 (05:05→10:15)
[2018-10-13 06:05] LABS: HEMATOCRIT 35.7 % (37.0-47.0); HEMOGLOBIN 10.8 g/dL (12.0-16.0); MCH 23.8 PG (27-31); MCHC 30.3 g/dL (33-37); MCV 78.6 FL (81-99); MPV 10.4 FL (7.4-10.4); RBC 4.54 XMIL (4.2-5.4); RDW 18.8 % (11.5-14.5); WBC 18.73 X1000 (4.8-10.8)
[2018-10-13] MEDS: HUMULIN R SUBQ SCH ×4 (06:35→21:17)
[2018-10-13 06:43] LABS: AGAP 14; BUN 44 mg/dL (8-22); CALCIUM 9.4 mg/dL (8.8-10.2); CHLORIDE 101 mmol/L (98-107); COSMO 305; CREATININE 0.6 mg/dL (0.5-0.9); ESTIMATED GFR > 60; GLUCOSE 160 mg/dL (70-104); SODIUM 146 mmol/L (136-145); TCO2 31 mmol/L (25-35)
[2018-10-13 06:52] LABS: MAGNESIUM 1.9 mg/dL (1.5-2.7); PHOSPHORUS 2.1 mg/dL (2.7-4.5)
--- NOTE | 2018-10-13 07:34 | Diag Imaging Result Doc PS360 ---
EXAM: CHEST-1 VIEW INDICATION: SOB TECHNIQUE: One view COMPARISON: 10/12/2018 FINDINGS: There has been interval extubation. Mild increased interstitial markings are largely stable. There is slight increased opacity at the right lung base, which is probably due to differences in positioning. No other new consolidation is identified. Cardiac silhouette is stable. IMPRESSION: Slight increased opacity at the right lung base that is probably related to positioning. Stable chest, otherwise. Electronically signed by Tyron Harper 10/13/2018 7:31 AM
[2018-10-13 07:52] LABS: POTASSIUM 2.4 mmol/L (3.5-5.1)
[2018-10-13] MEDS ORDERED: VANCOMYCIN 1 GM/NS 1 GM/250 ML IVPB IV ONE (07:57)
[2018-10-13] MEDS ORDERED: VANCOMYCIN IV PER PHARMACY MISC SCH (08:00)
[2018-10-13] MEDS: LOVENOX SUBQ SCH (08:27)
[2018-10-13] MEDS ORDERED: SOLU-MEDROL IV SCH (09:00)
[2018-10-13] MEDS ORDERED: LASIX IV SCH (09:00)
[2018-10-13] MEDS ORDERED: POTASSIUM CHLORIDE 40 MEQ/SWI 40 MEQ/100 ML IVPB IV ONE (09:05)
[2018-10-13] MEDS ORDERED: POTASSIUM PHOSPHATE 40 MEQ in NS 250 ML IV ONE ×2 (09:07→20:00)
[2018-10-13] MEDS: ASPIRIN PO SCH (09:21)
[2018-10-13] MEDS: COZAAR PO SCH (09:21)
--- NOTE | 2018-10-13 10:17 | PROVIDER PROGRESS NOTE ---
Progress Note S: Patient failed bedside swallow evaluation, "terribly". No acute overnight events. No N/V, CP, abdominal pain. SOB improving O: Last Vital Signs Temp 97.6 F 10/13/18 03:20 Pulse 77 10/13/18 09:32 Resp 23 10/13/18 09:32 BP 147/66 10/13/18 09:32 Pulse Ox 89 L 10/13/18 09:32 Height 5 ft 2 in Weight 105 lb on mask GEN: awake, alert, mild respiratory distress HEENT: anicteric NECK: supple CV: 2/6 BLANCO PULM: increased WOB, tachypneic, CTAB ABD: soft NT/ND, NABS EXT: no cce NEURO: moving all extremities LABS: 10/13/18 10/13/18 10/13/18 04:17 04:17 04:40 WBC 18.73 H Hgb 10.8 L Plt Count 339 pH 7.53 H pCO2 39 pO2 118 H Sodium 146 H Potassium 2.4 L* D Chloride 101 Carbon Dioxide 31 BUN 44 H Creatinine 0.6 Glucose 160 H IMAGING: EXAM: CHEST-1 VIEW INDICATION: SOB TECHNIQUE: One view COMPARISON: 10/12/2018 FINDINGS: There has been interval extubation. Mild increased interstitial markings are largely stable. There is slight increased opacity at the right lung base, which is probably due to differences in positioning. No other new consolidation is identified. Cardiac silhouette is stable. IMPRESSION: Slight increased opacity at the right lung base that is probably related to positioning. Stable chest, otherwise. A/P Ms. Hortensia Lee is a 78yo woman admitted with acute hypoxic respiratory failure from pneumonia vs CHF exacerbation. GI consulted for evaluation of possible esophageal dysphagia given history of esophageal stricture, previously dilated. She failed bedside speech evaluation by RN suggesting oropharyngeal dysphagia. Formal speech evaluation pending. Agree with Dr. Davis that a MBS and esophogram would be most appropriate at this time. Continue PPI PO once daily. Will follow with you.
--- NOTE | 2018-10-13 10:38 | PROGRESS NOTE ---
DATE: 10/13/2018 SUBJECTIVE: She is extubated. She seems to be doing okay. OBJECTIVE: Vital Signs: Blood pressure is 147/66, heart rate 77, respiratory rate 23, temperature was 97.6 degrees. Cardiovascular: Regular rate and rhythm. Pulmonary: Bilateral breath sounds. Clear to auscultation. GI: Soft, nontender, nondistended. Bowel sounds are positive. Extremity Exam: No clubbing or cyanosis. Lymphatic Exam: No peripheral edema. Neurological Exam: Nonfocal. LABORATORY DATA: White count 18, hemoglobin and hematocrit 10 and 35, platelets 339. A pH of 7.53, pCO2 of 39, PaO2 118. Sodium is 146, potassium is 2.4, BUN is 44, phosphorus is 2.1. PROBLEM LIST: 1. Acute respiratory failure due to pneumonia and pulmonary edema. She is extubated. She is still requiring a decent amount of oxygen. So, we will continue to follow. 2. Right lower lobe pneumonia. We will continue antibiotics. She is growing out methicillin- resistant Staphylococcus aureus from her sputum, and she is currently on vancomycin. 3. Pulmonary edema. We will continue diuretics and follow. She does have congestive heart failure and systolic heart failure, so we will treat that and follow. Yesterday, I stopped her vancomycin and then she was methicillin-resistant Staphylococcus aureus positive, so we had to put her back on it. 4. Esophageal stricture possible. She is having some dysphagia, so we will get a speech therapy consultation and follow. DISPOSITION: Pending her clinical status, still very touch and go. So, I will continue to follow. cc: Carlos Gaines MD
[2018-10-13] MEDS: VANCOMYCIN 1,250 MG in NS 250 ML IV SCH (12:00)
--- NOTE | 2018-10-13 12:01 | Diag Imaging Result Doc PS360 ---
EXAM: GI SERIES WITH BA SWALLOW 10/13/2018 HISTORY: dysphagia TECHNIQUE: Barium swallow, six images fluoroscopy time one minute 33 seconds, 419.8 cGy. COMMENT: Due to the patient's clinical condition the study was limited. The patient was able to swallow barium and there is no evidence of a physical obstruction to swallowing. No demonstrable aspiration occurred during the procedure. There has apparently been gastrectomy with esophagojejunostomy. The anastomosis is patent. IMPRESSION: No evidence of stricture or definite mucosal abnormality. Electronically signed by Sher Michelle 10/13/2018 11:59 AM
[2018-10-13] MEDS: PULMICORT INH SCH ×2 (15:50→19:34)
--- NOTE | 2018-10-13 18:04 | PROGRESS NOTE ---
DATE: 10/13/2018 SUBJECTIVE: Patient resting comfortably on nasal cannula oxygen. OBJECTIVE: Vital signs: Blood pressure 155/69, heart rate 74, oxygen saturation 93 to 94% on nasal cannula oxygen. Oxygen per mask. Respiratory rate 25. Neck: Jugular venous distention cannot be appreciated. Chest: Clear to auscultation anteriorly. Cardiac Exam: Reveals a regular rate and rhythm without appreciable murmur or gallop. There is no evidence of peripheral edema. LABORATORY DATA: Includes a white blood cell count 18.73, hematocrit 35.7, hemoglobin 10.8, platelet count 339,000. Sodium 146, potassium 2.4, chloride 101, carbon dioxide 31, BUN 44, creatinine 0.6, glucose 160. Portable chest x-ray is reviewed. There does not appear to be any evidence of pulmonary edema. IMPRESSIONS: 1. Hypoxemic respiratory failure, slowly improving. 2. Recent pulmonary edema. This appears to improved with diuresis. Lab suggests prerenal azotemia and mild hypernatremia. 3. Suspected aspiration pneumonitis. 4. Cardiomyopathy, probably ischemic in origin with moderate aortic stenosis and moderate mitral regurgitation, as well as moderate to severe pulmonary hypertension. 5. Hypertension. 6. Type 2 diabetes mellitus. 7. Hyperlipidemia. RECOMMENDATIONS: 1. Limit further diuresis given improvement in chest x-ray and prerenal azotemia. 2. Overall conservative management from a cardiovascular standpoint. cc: Con Lechuga MD
[2018-10-13] MEDS ORDERED: MICRO-K PO ONE (18:57)
[2018-10-13] MEDS ORDERED: KLOR-CON PO ONE (21:00)
[2018-10-13] MEDS: NORCO-10 PO PRN (21:15)
[2018-10-13] MEDS: DULCOLAX PR SCH (21:16)
[2018-10-14] MEDS: LABETALOL IV PRN (00:43)
[2018-10-14] MEDS: ZOSYN 3.375 GM in NS 50 ML IV SCH ×2 (00:43→06:27)
[2018-10-14] MEDS: KLONOPIN PO PRN ×4 (02:02→20:33)
[2018-10-14] MEDS: ATROVENT NEB INH SCH ×6 (03:21→23:30)
[2018-10-14] MEDS: XOPENEX NEB INH SCH ×6 (03:21→23:30)
[2018-10-14] MEDS: NORCO-10 PO PRN ×3 (04:15→16:20)
[2018-10-14 04:36] LABS: ALLEN TEST YES; BLOOD TYPE ARTERIAL; METHB 1.3 % (0.0-1.5); O2HB 93.3 % (95.0-99.0); PCO2(98.6) 42 mmHg (35-45); PO2(98.6) 71 mmHg (60-100); SAMPLE BLOOD; SAO2 96.2 % (95.0-100.0); THB 11.4 g/dL (11.5-17.4); pH(98.6) 7.55 (7.35-7.45)
[2018-10-14 04:37] LABS: MODALITY BI PAP
[2018-10-14 05:19] LABS: HEMOGLOBIN 10.7 g/dL (12.0-16.0); MCH 22.8 PG (27-31); MCHC 29.7 g/dL (33-37); MCV 76.8 FL (81-99); RBC 4.69 XMIL (4.2-5.4); WBC 15.4 X1000 (4.8-10.8)
[2018-10-14 06:07] LABS: AGAP 14; BUN 46 mg/dL (8-22); CHLORIDE 105 mmol/L (98-107); COSMO 314; CREATININE 0.6 mg/dL (0.5-0.9); ESTIMATED GFR > 60; GLUCOSE 145 mg/dL (70-104); POTASSIUM 3.1 mmol/L (3.5-5.1); SODIUM 151 mmol/L (136-145); TCO2 32 mmol/L (25-35)
[2018-10-14] MEDS: PROTONIX PO SCH (06:27)
--- NOTE | 2018-10-14 06:33 | Diag Imaging Result Doc PS360 ---
CHEST-1 VIEW - 10/14/2018 INDICATION: SOB COMPARISON: 10/13/2018 FINDINGS: Stable severely hyperexpanded lungs compatible with COPD. Stable pulmonary vascular congestion. There is significant improvement in the infiltrates in the lung bases. No new infiltrates. No pleural effusion. IMPRESSION: Significant improvement from prior. Persistent COPD. Electronically signed by Dallin Santiago 10/14/2018 6:31 AM
[2018-10-14] MEDS: HUMULIN R SUBQ SCH ×4 (06:35→20:31)
[2018-10-14] MEDS ORDERED: KLOR-CON PO ONE (08:12)
[2018-10-14] MEDS: COZAAR PO SCH (08:43)
[2018-10-14] MEDS: ASPIRIN PO SCH (08:43)
[2018-10-14] MEDS: LOVENOX SUBQ SCH (08:43)
[2018-10-14] MEDS ORDERED: COREG PO SCH (09:45)
[2018-10-14] MEDS: D5 1/2 NS + KCL 40 MEQ 1,000 ML IV SCH (10:02)
--- NOTE | 2018-10-14 10:06 | PROGRESS NOTE ---
DATE: 10/14/2018 SUBJECTIVE: Patient has no major complaints. OBJECTIVE: Vital signs: Blood pressure is 181/70, heart rate of 71, respiratory rate 24, temperature 97.5 degrees. Cardiovascular: Regular rate and rhythm. Pulmonary: Bilateral breath sounds clear to auscultation. Gastrointestinal: Soft, nontender, nondistended. Bowel sounds are positive. LABORATORY DATA: White count is 15, hemoglobin and hematocrit 10 and 36, platelets 335,000. Sodium 151, potassium 3.1, BUN and creatinine 46 and 0.6. PROBLEM LIST: 1. Acute respiratory failure due to Methicillin-resistant Staphylococcus aureus pneumonia and congestive heart failure exacerbation. She is doing better. She is still on a decent amount of O2, but we are working on weaning that down. X-ray is much improved, which would suggest that pulmonary edema was more part of her process than anything else, but we will continue antibiotics. Pulmonary is following. 2. Methicillin-resistant Staphylococcus aureus pneumonia. She is on vancomycin. We will continue that for the time being. I am going to stop her Zosyn because she is getting hypernatremic and she has a positive culture. 3. Acute congestive heart failure exacerbation. Cardiology is following. Losartan was started yesterday. We will continue to follow. At this point, I am not sure if this is really an aspiration pneumonia because she has got methicillin resistant Staphylococcus aureus, so we will continue treatment. She may be a candidate for Entresto and Coreg. Was going to start maybe some low-dose Coreg because her blood pressure is still very high and she is out of pulmonary edema now. Defer to Dr. Lechuga as far as that concern. 4. Hypokalemia. We will supplement and follow. 5. Hypernatremia, likely due to diuretics. I have started a little bit of fluid hypotonic and we will follow. 6. Diabetes is fairly well controlled. We will continue to monitor. DISPOSITION: I think she is probably stable to go to step-down. We will see how she does. Work with PT and decide about discharge home once her O2 requirement has decreased. cc: Carlos Gaines MD
[2018-10-14] MEDS: PULMICORT INH SCH ×2 (10:41→19:37)
[2018-10-14] MEDS: VANCOMYCIN 1,250 MG in NS 250 ML IV SCH (11:14)
--- NOTE | 2018-10-14 13:13 | PROGRESS NOTE ---
DATE: 10/14/2018 SUBJECTIVE: Patient continues without chest discomfort or dyspnea on supplemental oxygen. She denies any recent chest discomfort. OBJECTIVE: Vital Signs: Blood pressure 149/65, heart rate 69, oxygen saturation 98% on oxygen mask. Neck: There is no significant jugular venous distention. Chest: Clear to auscultation. Cardiac: Reveals a regular rate and rhythm without appreciable murmur or gallop. There is no evidence of peripheral edema. LABORATORY DATA: Includes a white blood cell count of 15.4, hematocrit 36.0, platelet count 335,000. Sodium 151, potassium 3.1, chloride 105, carbon dioxide 32, BUN 46, creatinine 0.6, glucose 145. IMPRESSION: 1. Hypoxemic respiratory failure, improving. 2. Recent pulmonary edema. This appears to have improved with diuresis. Labs suggest prerenal azotemia and hypernatremia. Suspect intravascular volume depletion presently. 3. Suspected aspiration pneumonitis. 4. Cardiomyopathy, probably ischemic in origin with moderate aortic stenosis and moderate mitral regurgitation. 5. Hypertension. 6. Type 2 diabetes mellitus. 7. Hyperlipidemia. RECOMMENDATIONS: 1. Hold on further diuresis given improvement in chest x-ray and prerenal azotemia/hypernatremia. 2. Increase carvedilol to 6.25 mg p.o. b.i.d. as tolerated. cc: Con Lechuga MD
[2018-10-14] MEDS: DULCOLAX PR SCH (20:31)
[2018-10-14] MEDS: COREG PO SCH (20:33)
--- NOTE | 2018-10-14 23:42 | PROVIDER PROGRESS NOTE ---
Progress Note S: No acute overnight events. Patient denies dysphagia or CP. SOB improving. O: Last Vital Signs Temp 97.4 F L 10/14/18 20:00 Pulse 70 10/14/18 20:00 Resp 18 10/14/18 20:00 BP 154/49 10/14/18 20:00 Pulse Ox 100 10/14/18 20:00 Height 5 ft 2 in Weight 96 lb 9.6 oz 3L NC GEN: awake, alert, NAD HEENT: anicteric NECK: supple CV: 2/6 BLANCO PULM: CTAB ABD: soft NT/ND, NABS EXT: no cce NEURO: moving all extremities LABS: 10/14/18 10/14/18 10/14/18 04:26 04:26 04:30 WBC 15.40 H Plt Count 335 pH 7.55 H pCO2 42 pO2 71 Sodium 151 H Potassium 3.1 L D Chloride 105 Carbon Dioxide 32 Anion Gap 14 BUN 46 H Creatinine 0.6 Glucose 145 H IMAGING: CHEST-1 VIEW - 10/14/2018 INDICATION: SOB COMPARISON: 10/13/2018 FINDINGS: Stable severely hyperexpanded lungs compatible with COPD. Stable pulmonary vascular congestion. There is significant improvement in the infiltrates in the lung bases. No new infiltrates. No pleural effusion. IMPRESSION: Significant improvement from prior. Persistent COPD. GI SERIES WITH BA SWALLOW 10/13/2018 HISTORY: dysphagia TECHNIQUE: Barium swallow, six images fluoroscopy time one minute 33 seconds, 419.8 cGy. COMMENT: Due to the patient's clinical condition the study was limited. The patient was able to swallow barium and there is no evidence of a physical obstruction to swallowing. No demonstrable aspiration occurred during the procedure. There has apparently been gastrectomy with esophagojejunostomy. The anastomosis is patent. IMPRESSION: No evidence of stricture or definite mucosal abnormality. A/P Ms. Hortensia Lee is a 78yo woman admitted with acute hypoxic respiratory failure from MRSA pneumonia +/- CHF exacerbation. GI consulted for evaluation of possible esophageal dysphagia given history of esophageal stricture, previously dilated. She failed bedside speech evaluation by RN suggesting oropharyngeal dysphagia. However, barium swallow was negative for obstruction or aspiration. Seen by Speech. Patient is tolerating mechanical soft diet. Continue PPI PO once daily. Will sign off. Please call with questions.
[2018-10-15] MEDS: NORCO-10 PO PRN ×4 (00:40→19:52)
[2018-10-15] MEDS: D5 1/2 NS + KCL 40 MEQ 1,000 ML IV SCH ×2 (00:44→17:26)
[2018-10-15] MEDS: XOPENEX NEB INH SCH ×6 (03:22→23:04)
[2018-10-15] MEDS: ATROVENT NEB INH SCH ×6 (03:22→23:05)
[2018-10-15] MEDS: KLONOPIN PO PRN ×2 (05:21→17:18)
[2018-10-15] MEDS: PROTONIX PO SCH ×2 (05:21→06:23)
[2018-10-15 05:40] LABS: ALLEN TEST YES; BE 10.4 mmoll (-3.0-3.0); BLOOD TYPE ARTERIAL; O2(CT) 13.8 mL/dL (15.0-23.0); O2HB 96.5 % (95.0-99.0); PCO2(98.6) 42 mmHg (35-45); PO2(98.6) 125 mmHg (60-100); SAMPLE BLOOD; SAO2 98.8 % (95.0-100.0); pH(98.6) 7.52 (7.35-7.45)
[2018-10-15 05:41] LABS: MODALITY CANNULA
[2018-10-15] MEDS: HUMULIN R SUBQ SCH ×5 (06:27→21:09)
--- NOTE | 2018-10-15 07:04 | Diag Imaging Result Doc PS360 ---
EXAM: CHEST-1 VIEW 10/15/2018 HISTORY: SOB TECHNIQUE: AP portable at 0540 COMMENT: There is ill-defined opacity in the right costophrenic angle region which was not the case on 07/14/2018. The inspiration is slightly less optimal than on the previous study. IMPRESSION: Right lower lobe pneumonia. Electronically signed by Sher Michelle 10/15/2018 7:02 AM
[2018-10-15 07:10] LABS: EOS# 0.05 X1000 (0.0-0.7); EOS% 0.5 % (0.0-10.0); HEMATOCRIT 33.2 % (37.0-47.0); HEMOGLOBIN 9.6 g/dL (12.0-16.0); IMM GRAN# 0.02 X1000 (0.0-0.04); IMM GRAN% 0.2 % (0.0-0.5); LYMPH# 1.83 X1000 (1.2-3.4); LYMPH% 16.9 % (20.5-51.1); MCH 22.9 PG (27-31); MCHC 28.9 g/dL (33-37); MONO# 0.96 X1000 (0.11-0.59); MONO% 8.9 % (1.7-9.3); MPV 10.2 FL (7.4-10.4); NEUT# 7.98 X1000 (1.4-6.5); NEUT% 73.5 % (42.2-75.2); PLT 295 X1000 (130-400); RDW 18.8 % (11.5-14.5); WBC 10.84 X1000 (4.8-10.8)
[2018-10-15 07:29] LABS: AGAP 10; BUN 36 mg/dL (8-22); CALCIUM 7.7 mg/dL (8.8-10.2); CHLORIDE 108 mmol/L (98-107); COSMO 309; CREATININE 0.5 mg/dL (0.5-0.9); ESTIMATED GFR > 60; GLUCOSE 143 mg/dL (70-104); POTASSIUM 3.8 mmol/L (3.5-5.1); SODIUM 150 mmol/L (136-145); TCO2 32 mmol/L (25-35)
[2018-10-15] MEDS: ASPIRIN PO SCH (08:29)
[2018-10-15] MEDS: COZAAR PO SCH (08:29)
[2018-10-15] MEDS: LASIX PO SCH (08:29)
[2018-10-15] MEDS: LOVENOX SUBQ SCH (08:29)
[2018-10-15] MEDS: COREG PO SCH ×3 (08:29→22:53)
[2018-10-15] MEDS: VANCOMYCIN 1,250 MG in NS 250 ML IV SCH (11:41)
[2018-10-15] MEDS: PULMICORT INH SCH ×2 (15:36→19:14)
--- NOTE | 2018-10-15 16:08 | ECHO REPORT ---
ORDER DATE: 10/15/2018 INDICATION: Reassess ejection fraction. FINDINGS: 1. The right atrium is mildly enlarged at 4 cm. 2. Mild tricuspid regurgitation. The RV systolic pressure is 58 suggesting pulmonary hypertension. 3. The right ventricle appears to have mild reduction in RV systolic function. 4. No significant pulmonic insufficiency. 5. Left atrium is mildly enlarged with a dimension of 4 cm. 6. No mitral valve prolapse. There is moderate mitral regurgitation. No evidence of mitral stenosis. 7. Normal LV size with an end-diastolic dimension of 5.2. Normal wall thicknesses with a posterior and an interventricular septal wall thickness of 1.0 and 1.1 cm, respectively. The LV systolic function appears borderline normal to normal with an estimated EF of 50% to 55%. No obvious wall motion abnormalities are identified. 8. The aortic valve appears somewhat calcified with restriction in motion consistent with mild aortic stenosis. The peak gradient across valve is 25 with a mean of 14. There is mild aortic insufficiency. 9. The aorta appears normal in visualized segments. 10. There may be an extremely small anterior pericardial effusion with no evidence of tamponade physiology. cc: MD Mony De Oliveira PA
--- NOTE | 2018-10-15 18:54 | PROGRESS NOTE ---
DATE: 10/15/2018 SUBJECTIVE: She was admitted on 10/09/2018. She came in shortness of breath. She is an 78-year- old female with a medical history of COPD on 2 L of oxygen. She has been intubated in the past when she was admitted I believe was January 2018 or the 1st part of the year. Currently presented with hypoxemia, O2 saturation 70s on 2 L of oxygen. She was given steroids, high amounts of oxygen, nebulizers, and she improved dramatically. Had a little tachypnea and refusing BiPAP. Unsure how she felt about her DNR status on admission. PAST MEDICAL HISTORY: 1. Hypertension. 2. Hyperlipidemia. 3. Diabetes mellitus type 2. 4. COPD. 5. Chronic back pain. 6. Gastric ulcer. 7. Esophageal stricture. 8. Rectal prolapse. SURGICAL HISTORY: 1. Status post hysterectomy. 2. Appendectomy. 3. Partial gastrectomy. 4. EGD for foreign body removed with esophageal stricture. 5. Lower back surgery. 6. Repair of rectal prolapse in the past. ADMISSION DIAGNOSIS: Acute on chronic hypoxemic respiratory failure. PHYSICAL EXAMINATION: General: Today on exam she was breathing better and felt much better. Vital signs: Temp 98.0 degrees, pulse 70, respirations 15, blood pressure 145/57. HEENT: Pupils are equal and round. Lungs: Are clear in all lung rothman. Cardiovascular: Regular rhythm and rate without murmur or S3. Abdomen: Is soft. Skin: Is warm and dry. ASSESSMENT AND PLAN: 1. Severe chronic obstructive pulmonary disease exacerbation and seems to be improving, better air and gas exchange. 2. Congestive heart failure. 3. Pleural effusion. 4. Methicillin-resistant Staphylococcus aureus pneumonia, making good improvement. I think we will take out her Gloria catheter, review of her orders. I do not see any change and she is hoping she can be discharged soon. She has home O2 already. REVIEW OF LABS: Her lab looks good. Hematocrit 33, hemoglobin 9.6 and stable. Chemistries unremarkable. cc: Poncho Conklin MD
[2018-10-15] MEDS: DULCOLAX PR SCH ×2 (19:54→22:53)
[2018-10-16] MEDS: KLONOPIN PO PRN ×2 (01:59→20:21)
[2018-10-16] MEDS: NORCO-10 PO PRN ×4 (01:59→20:21)
[2018-10-16] MEDS: ATROVENT NEB INH SCH ×6 (03:30→23:11)
[2018-10-16] MEDS: XOPENEX NEB INH SCH ×6 (03:30→23:11)
[2018-10-16 04:02] LABS: ALLEN TEST YES; BE 7.4 mmoll (-3.0-3.0); BLOOD TYPE ARTERIAL; HCO3-(ACT) 30.7 mmoll (20.0-26.0); O2(CT) 11.6 mL/dL (15.0-23.0); O2HB 94.8 % (95.0-99.0); PCO2(98.6) 45 mmHg (35-45); PO2(98.6) 76 mmHg (60-100); SAMPLE BLOOD; SAO2 97.3 % (95.0-100.0); THB 8.6 g/dL (11.5-17.4); pH(98.6) 7.46 (7.35-7.45)
[2018-10-16 04:03] LABS: MODALITY CANNULA
[2018-10-16] MEDS: D5 1/2 NS + KCL 40 MEQ 1,000 ML IV SCH ×2 (06:11→16:23)
[2018-10-16] MEDS: PROTONIX PO SCH (06:12)
--- NOTE | 2018-10-16 06:39 | Diag Imaging Result Doc PS360 ---
CHEST-1 VIEW - 10/16/2018 INDICATION: SOB COMPARISON: 10/15/2018 FINDINGS: Stable cardiomegaly and significant pulmonary vascular congestion. Stable COPD. Stable patchy infiltrate in the right lateral costophrenic angle suggesting pneumonia. No pneumothorax or large pleural effusion. IMPRESSION: No change from prior. Electronically signed by Dallin Santiago 10/16/2018 6:37 AM
[2018-10-16] MEDS: HUMULIN R SUBQ SCH ×4 (06:43→20:18)
[2018-10-16] MEDS: PULMICORT INH SCH ×2 (07:45→19:55)
[2018-10-16] MEDS: ASPIRIN PO SCH (08:17)
[2018-10-16] MEDS: COREG PO SCH ×2 (08:17→20:20)
[2018-10-16] MEDS: COZAAR PO SCH (08:17)
[2018-10-16] MEDS: LASIX PO SCH (08:25)
[2018-10-16] MEDS: LOVENOX SUBQ SCH (08:25)
--- NOTE | 2018-10-16 09:20 | PROGRESS NOTE ---
DATE: 10/16/2018 SUBJECTIVE: Ms. Lee is breathing better. She is feeling better. She did do a little bit of walking and bearing weight yesterday. She would like to try to go home. She thinks she will be ready tomorrow. OBJECTIVE: Temperature 98.0 degrees, pulse 76, respirations 20, blood pressure 130/63. Pupils are equal and round. Lungs are clear in all lung rothman. Cardiovascular with regular rhythm and rate without murmur or S3. Abdomen is soft. Skin is warm and dry. Urine output is 2800 mL. Blood sugar 160, 154, 132. Chest x-ray with no change from prior, stable cardiomegaly. Significant pulmonary vascular congestion, stable COPD, stable patchy infiltrate. Right lateral costovertebral angle suggesting pneumonia. No pneumothorax or large pleural effusion seen. ASSESSMENT AND PLAN: 1. Severe chronic obstructive pulmonary disease exacerbation which is improving. Improved airway and gas exchange. 2. Congestive heart failure, still some pulmonary venous hypertension on x-ray as well as pleural effusion. 3. Methicillin-resistant Staphylococcus aureus pneumonia. Making good improvement. We did take out her Gloria catheter yesterday. She has physical therapy involved. ORDERS: On review of her orders she is on Coreg 6.25 mg b.i.d., Pulmicort 0.5 mg inhalation b.i.d., aspirin 81 mg a day, Lasix 40 mg a day, losartan 25 mg a day, DuoNeb q.4 hours and vancomycin 1250 mg IV q.24 hours. LABORATORY DATA: Review of lab from yesterday shows: Hematocrit is stable at 33, hemoglobin 9.6. Blood sugars 95, 254, 132. PLAN: I think the plan is she wants to go home. She lives with her daughter. I would recommend she have some home health and she may be ready tomorrow. She had an echocardiogram with limited views on 10/15/2018 with mild tricuspid regurgitation, RV systolic pressure 58 mmHg, normal left ventricular size, ejection fraction 50 to 55 percent. She has mild aortic stenosis. Aortic gradient is about 25 mmHg. Mild aortic insufficiency. cc: Poncho Conklin MD
[2018-10-16] MEDS: VANCOMYCIN 1,500 MG in NS 250 ML IV SCH (12:28)
--- NOTE | 2018-10-16 15:30 | PROGRESS NOTE ---
DATE: 10/16/2018 SUBJECTIVE: Patient denies shortness of breath or chest discomfort on supplemental oxygen per nasal cannula. She reports feeling progressively stronger. OBJECTIVE: Vital Signs: Blood pressure 103/58, heart rate 65, oxygen saturation 97% to 99% on nasal cannula oxygen at 2 L/minute. Neck: There is no significant jugular venous distention. Chest: Auscultation of the chest reveals coarse crackles in the bases bilaterally. Cardiac: Exam reveals a regular rate and rhythm without appreciable murmur or gallop. There is no evidence of peripheral edema. LABORATORY DATA: Includes arterial blood gas with a pH of 7.46, pCO2 45, PO2 of 76 on nasal cannula oxygen at 2 L/minute. Repeat echocardiography yesterday indicated normal left ventricular ejection fraction and mild aortic stenosis. IMPRESSION: 1. Recent hypoxemic respiratory failure, improving. Suspect related to pneumonia and superimposed pulmonary edema. 2. Recent pulmonary edema. This improved with diuresis. Most recent laboratory studies suggest prerenal azotemia. 3. Pneumonia, possibly related to aspiration. 4. Cardiomyopathy. Suspect likely underlying atherosclerotic coronary disease in light of the patient's improvement in left ventricular ejection fraction one she improved from a standpoint of pneumonia and oxygenation. She also has mild aortic stenosis and moderate mitral regurgitation. 5. Hypertension. 6. Type 2 diabetes mellitus. 7. Hyperlipidemia. RECOMMENDATIONS: 1. Hold on further diuresis. 2. Continue medical management of the patient's atherosclerotic coronary disease. 3. Reasonable for the patient to be discharged home in the next 24 hours. I will be happy to see her again in approximately 2 to 3 weeks post discharge for a followup of her coronary atherosclerosis and aortic valve disorder. cc: Con Lechuga MD
[2018-10-16 15:58] LABS: AGAP 7; ALB/GLOB RATIO 0.8; ALKALINE PHOSPHATASE 47 U/L (32-104); BUN 21 mg/dL (8-22); CALCIUM 8.3 mg/dL (8.8-10.2); CHLORIDE 103 mmol/L (98-107); COSMO 277; CREATININE 0.5 mg/dL (0.5-0.9); ESTIMATED GFR > 60; GLUCOSE 111 mg/dL (70-104); GOT 30 U/L (10-30); GPT 27 U/L (10-36); MAGNESIUM 1.9 mg/dL (1.5-2.7); SODIUM 137 mmol/L (136-145); TCO2 27 mmol/L (25-35); TOTAL BILIRUBIN 0.38 mg/dL (0.20-1.00); TOTAL PROTEIN 6.8 g/dL (6.3-8.3)
--- NOTE | 2018-10-16 18:46 | PULMONOLOGY PROGRESS NOTE ---
DATE: 10/16/2018 SUBJECTIVE: The patient is awake and alert. She is sitting in the bedside chair. She has no increased work of breathing. OBJECTIVE: The patient has been afebrile for the last 24 hours. Blood pressure 106/39, heart rate 75, respiratory rate 16, oxygen saturation 96% on 2 L per nasal cannula. HEENT: Pupils are equal and reactive. Oropharynx appears clear. Neck is supple. Chest reveals prolonged expiratory phase bilaterally. Cardiac exam: S1, S2 with regular rhythm and no significant murmur or gallop. Abdomen is soft. Extremities are without edema. LABORATORY DATA: Arterial blood gas reveals a pH 7.46, pCO2 of 45, pO2 of 76 on 2 L per nasal cannula. White blood count not obtained today. Sodium 137, potassium 4.0, chloride 103 bicarbonate 27, BUN 21, creatinine 0.5. DIAGNOSTIC DATA: Chest x-ray reveals generous cardiac silhouette, pulmonary vascular congestion, hyperinflation, patchy infiltrate in right base. IMPRESSION: An 78-year-old with: 1. Methicillin-resistant Staphylococcus aureus pneumonia. 2. Acute hypoxemic respiratory failure. 3. Multivalvular heart disease (mild aortic stenosis, moderate mitral regurgitation). 4. Moderate hypertension. 5. Generalized weakness, with continued improvement. RECOMMENDATION: 1. Continue oxygen. The patient is on oxygen at home. 2. Complete antibiotic regimen. 3. Anticipate discharge in the next 24 to 48 hours. cc: Daniel Rodriguez MD
[2018-10-17] MEDS: DULCOLAX PR SCH (01:20)
[2018-10-17] MEDS: NORCO-10 PO PRN ×2 (03:00→09:16)
[2018-10-17] MEDS: XOPENEX NEB INH SCH ×3 (03:23→11:10)
[2018-10-17] MEDS: ATROVENT NEB INH SCH ×3 (03:23→11:10)
[2018-10-17] MEDS: PROTONIX PO SCH ×2 (05:47→06:34)
[2018-10-17] MEDS: HUMULIN R SUBQ SCH ×2 (06:34→12:18)
[2018-10-17] MEDS: KLONOPIN PO PRN (07:03)
[2018-10-17] MEDS: D5 1/2 NS + KCL 40 MEQ 1,000 ML IV SCH (07:10)
--- NOTE | 2018-10-17 07:41 | Diag Imaging Result Doc PS360 ---
CHEST-1 VIEW - 10/17/2018 INDICATION: SOB COMPARISON: 10/16/2018 FINDINGS: Stable COPD. Stable cardiomegaly and pulmonary vascular congestion. Stable hazy diffuse pulmonary edema. Stable effusions, infiltrates or atelectasis at both lung bases. IMPRESSION: No change from prior. Electronically signed by Dallin Santiago 10/17/2018 7:39 AM
[2018-10-17] MEDS: PULMICORT INH SCH (07:45)
[2018-10-17] MEDS: ASPIRIN PO SCH (09:16)
[2018-10-17] MEDS: LASIX PO SCH (09:16)
[2018-10-17] MEDS: COZAAR PO SCH (09:16)
[2018-10-17] MEDS: COREG PO SCH (09:16)
[2018-10-17] MEDS: LOVENOX SUBQ SCH (09:17)
--- NOTE | 2018-10-17 10:58 | DISCHARGE SUMMARY ---
ADMISSION DATE: 10/09/2018 DISCHARGE DATE: 10/17/2018 PRIMARY CARE PHYSICIAN: Dr. Jigar Arevalo and FLORENTIN Lemus. REASON FOR ADMISSION: She has presented with shortness of breath. HISTORY OF PRESENT ILLNESS: This is an 78-year-old female with medical history of COPD on 2 L oxygen and was intubated in the past when she was admitted here I believe in January of last year 2017 first part of the year. Currently presented at this time on 10/09/2018 with hypoxia, O2 saturations in the 70s on 2 L of oxygen. She was given steroids, high amount of oxygen, nebulizers which improved dramatically. Had a little bit of tachypnea and refused her BiPAP. Unsure about what she wanted to do about her DNR status on admission. After further discussions with her, she agreed to be admitted. Had white count of 13,000, elevated lactate of 2.8, mildly acidotic. Started her on broad-spectrum antibiotics. It was noted that for the last 4 weeks, she had complained of 7 pound weight gain and bilateral lower extremity swelling. She is having 2+ lower extremity pitting edema, and also complained of shortness of breath which apparently worsened. Denied any chest pain. She received some Lasix in the emergency room, along with Gloria catheter, having a great response with that. She had an elevated proBNP. Looking back in January 2018, she had an elevated proBNP. I was looking back her ejection fraction; on echocardiogram she had ejection fraction of 55%. PAST MEDICAL HISTORY: 1. Hypertension. 2. Hyperlipidemia. 3. Diabetes mellitus type 2. 4. COPD. 5. Chronic back pain. 6. Gastric ulcers. 7. Esophageal stricture. 8. Rectal prolapse. SURGICAL HISTORY: 1. Hysterectomy. 2. Appendectomy. 3. Partial gastrectomy. 4. Esophagogastroduodenoscopy for foreign body removal secondary to esophageal stricture. 5. Lower back surgery. 6. Repair of rectal prolapse. ADMISSION DIAGNOSES: 1. Acute on chronic hypoxemic respiratory failure. Initially required 15 liters or 100% non- rebreather and able to wean this down with nebulizers. She did refuse the BiPAP. Her pH was 7.29, and she improved fairly quickly. 2. Chronic obstructive pulmonary disease exacerbation. We put her on nebulizers and steroids and antibiotics. 3. Congestive heart failure with reduced ejection fraction. She had elevated proBNP and we did give her some Lasix. She had lower extremity edema and this improved. 4. Hypertension. Followed blood pressure. Kept her on her home medicines. 5. Diabetes mellitus type 2. Followed pattern sugars and sliding scale. 6. Hyperlipidemia. 7. Chronic back pain for which she goes to [facility]. 8. History of esophageal stricture, rectal prolapse, gastric ulcers. She is not on any medication for this. 9. It appears she presented with sepsis. Lactate level was a little high and secondary to pneumonia and this improved. Note, followup chest x-ray on 10/10 she was intubated. Endotracheal tube was in the right mainstem bronchus, and she had small bilateral pleural effusions, bilateral infiltrates. Dr. Arnett was following and he followed her for acute on chronic hypoxemic respiratory failure requiring intubation, chronic obstructive pulmonary disease exacerbation, possible aspiration pneumonia, and appeared to have pulmonary venous hypertension as well. The patient showed steady improvement, and they were able to wean her off the ventilator. Continue to diurese. Gastroenterology was asked to see, Dr. Davis. History of esophageal stricture required food disimpaction back in [address] Gong. The patient is a patient Dr. Farrell. Obtained records from Dr. Farrell. Could not tell if she had any active stricture. She was improving from a Pulmonary standpoint. She had an upper gastrointestinal barium swallow. No evidence of stricture or definite mucosal abnormality, so it was unremarkable. Cardiology was asked to see and the patient has a cardiomyopathy, probably ischemic in origin, moderate aortic stenosis, moderate mitral regurgitation. She continued to show some improvement. Echocardiogram done on 10/15: Left ventricular ejection fraction at that time 50% to 55%. Normal wall thickness and posterior and intraventricular septal wall thickness was about 1.0 and 1.1 cm respectively. She has mild aortic stenosis right ventricle. Had mild reduction and right ventricular systolic function, mild tricuspid regurgitation. Chest x-ray this morning: Really no change, stable chronic obstructive pulmonary disease, stable cardiomegaly, pulmonary vascular congestion. Stable hazy diffuse pulmonary edema. Stable effusions and infiltrates and atelectasis in both lungs. DISCHARGE DIAGNOSES: 1. Methicillin-resistant Staphylococcus aureus pneumonia. 2. Acute hypoxemic respiratory failure. 3. Multivalvular heart disease, mild aortic stenosis, moderate mitral regurgitation. 4. Moderate hypertension. 5. Generalized weakness. She continues to show improvement. The patient is on home oxygen, and we have completed antibiotic regimen. Feel she is ready for discharge. Would recommend home health and physical therapy. DISCHARGE MEDICATIONS: She can take Tylenol as needed, aspirin 81 mg a day, Dulcolax suppository 10 mg per rectum at bedtime, Pulmicort 0.5 mg one inhalation b.i.d., Coreg 6.25 mg b.i.d. Klonopin 0.5 mg b.i.d., Lovenox 30 mg subcutaneous q. 24 hours, Lasix 40 mg daily p.o., [place] 10 mg q. 6 hours p.r.n., Cozaar 25 mg daily, Protonix 40 mg daily. We will stop her vancomycin and stop her antibiotics. cc: Poncho Conklin MD
[2018-10-17 12:15] VITALS: BP 124/45
[2018-10-17] MEDS: VANCOMYCIN 1,500 MG in NS 250 ML IV SCH (12:47)
== END 2018-10-17 13:08 | disposition home health service (06) | DRG 871 ==
LOC: SUPCPDRO → ED 09:11 → 2N 12:41 → SUATTDRO 12:41 → ICU 17:21 → 2N 10-14 13:31
PROVIDERS: ATTEND Emergency Medicine

== ENCOUNTER 2018-11-28 14:02 | Inpatient (IN) ==
[2018-11-28] MEDS ORDERED: NS 1,000 ML IV ONE ×2 (14:44→15:31)
[2018-11-28 15:04] LABS: BASO# 0.11 X1000 (0.0-0.2); BASO% 0.9 % (0.0-0.8); EOS# 0.28 X1000 (0.0-0.7); EOS% 2.2 % (0.0-10.0); HEMATOCRIT 28.5 % (37.0-47.0); HEMOGLOBIN 8.4 g/dL (12.0-16.0); IMM GRAN# 0.02 X1000 (0.0-0.04); IMM GRAN% 0.2 % (0.0-0.5); LYMPH# 2.27 X1000 (1.2-3.4); LYMPH% 17.6 % (20.5-51.1); MCH 22.5 PG (27-31); MCHC 29.5 g/dL (33-37); MCV 76.2 FL (81-99); MONO# 1.32 X1000 (0.11-0.59); MONO% 10.2 % (1.7-9.3); MPV 9.9 FL (7.4-10.4); NEUT# 8.89 X1000 (1.4-6.5); NEUT% 68.9 % (42.2-75.2); PLT 660 X1000 (130-400); RBC 3.74 XMIL (4.2-5.4); RDW 21.1 % (11.5-14.5); WBC 12.89 X1000 (4.8-10.8)
[2018-11-28 15:32] LABS: AGAP 12; ALB/GLOB RATIO 0.7; ALKALINE PHOSPHATASE 64 U/L (32-104); BUN 28 mg/dL (8-22); CALCIUM 8.7 mg/dL (8.8-10.2); CHLORIDE 101 mmol/L (98-107); CK PROFILE 39 U/L (24-173); COSMO 283; CREATININE 0.8 mg/dL (0.5-0.9); ESTIMATED GFR > 60; GLUCOSE 102 mg/dL (70-104); GOT 31 U/L (10-30); GPT 12 U/L (10-36); POTASSIUM 5.6 mmol/L (3.5-5.1); SODIUM 139 mmol/L (136-145); TCO2 26 mmol/L (25-35); TOTAL BILIRUBIN 0.21 mg/dL (0.20-1.00); TOTAL PROTEIN 7.1 g/dL (6.3-8.3)
--- NOTE | 2018-11-28 16:01 | Diag Imaging Result Doc PS360 ---
FLAT/UPRIGHT ABD/1 VIEW CHEST - 11/28/2018 INDICATION: rectal bleeding TECHNIQUE: COMPARISON: 10/17/2018 FINDINGS: The chest is clear. Heart size is top normal. There is significant levoscoliosis of the lumbar spine. There is advanced degeneration of the spine. There is mild constipation the colon. No small bowel obstruction or evidence of free air. IMPRESSION: Mild constipation. Electronically signed by Dallin Santiago 11/28/2018 3:59 PM
[2018-11-28] MEDS ORDERED: NORCO-10 PO ONE (16:38)
--- NOTE | 2018-11-28 16:42 | PROVIDER DOCUMENTATION ---
This chart was entered by Fadi Loredo Scribe, acting as scribe for Juancho Tirado DO. HPI-Abdominal Pain/GI Problem - General Chief Complaint: GI Bleed Stated Complaint: GI BLEED Time Seen by Provider: 11/28/18 14:25 Source: patient, family, EMS Allergies/Adverse Reactions: Patient Allergies Allergy/AdvReac Type Severity Reaction Status Date / Time No Known Allergies Allergy Verified 06/30/18 14:46 Home Medications: Home Medication List Medication Instructions Recorded Confirmed Last Taken Type Gabapentin 800 mg PO BID 05/24/15 10/09/18 02/07/17 21:00 History Rosuvastatin Calcium [Crestor] 40 mg PO QHS 05/24/15 11/28/18 06/24/18 History Sitagliptin [Januvia] 100 mg PO QHS 05/24/15 10/09/18 06/24/18 History Amitriptyline [Elavil] 50 mg PO HS 02/02/16 10/09/18 06/24/18 History Albuterol 2.5MG/Ipratrop 0.5MG 3 ml INH Q4-6H PRN PRN neb 02/11/17 10/09/18 Unknown Rx [Duoneb (A & A)] Hydrocodone/Acetaminophen [[place] 10 mg PO Q4H PRN PRN 10/09/18 10/09/18 Unknown History 10-325 Tablet] Acetaminophen [Tylenol] 650 mg PO Q6H PRN PRN tab 10/17/18 Unknown Rx Aspirin 81 mg PO DAILY chewtab 10/17/18 11/28/18 Unknown Rx Carvedilol [Coreg] 6.25 mg PO BID 30 Days #60 tab 10/17/18 11/28/18 Unknown Rx Furosemide [Lasix] 40 mg PO DAILY 30 Days #30 tab 10/17/18 Unknown Rx Losartan [Cozaar] 25 mg PO DAILY 30 Days #30 tab 10/17/18 Unknown Rx Pantoprazole [Protonix] 40 mg PO DAILY@0700 30 Days #30 tab 10/17/18 11/28/18 Unknown Rx Albuterol Sulfate [Ventolin Hfa] 2 inh INH Q4H PRN 11/28/18 11/28/18 Unknown History Budesonide/Formoterol Fumarate 2 inh INH BID PRN 11/28/18 11/28/18 Unknown Hi story [Symbicort 160-4.5 Mcg Inhaler] Hydrochlorothiazide 1 tab PO DAILY 11/28/18 11/28/18 Unknown History Roflumilast [Daliresp] 1 tab PO DAILY 11/28/18 11/28/18 Unknown History - History of Present Illness-ABD Nature of Presenting Problems: 78 yof presents to the ed v/a ems with GI Bleed and fall. Family states putting on 3 pul-ups and pt filled them up with blood/clots and water. family states "onset GI bleed started this morning around 8:30 am but pt hasn't felt good past 2 days." family states "2 weeks ago pt was cramping all night long couldn't subside cramping." family states " Friday took potty chair to pt and diarrhea and blood in chair." family also states" pt was put on antibiotics and broke out in mouth sores but subsided now." family stated "pt ate few bites of food last night but couldn't eat anymore, then didn't eat this morning but had little water." pt has on pull-up with towel in pull-up. Quality of Pain: reports: none Severity in ED: reports: mild Onset/Duration: reports: this morning Timing: reports: still present Activities at Onset: reports: light activity Exposure to sick contacts?: No Modifying Factors: improves with: nothing Associated Symptoms: reports: denies symptoms Last BM: this morning Dark Stools Present?: reports: bright red blood Rectal Bleeding: reports: other (water/ bright red) Rectal Pain: reports: none Emesis Description: reports: red blood Bruising or Bleeding Gums?: No Similar Symptoms Previously?: No Recently seen or treated by another doctor?: No Review of Systems - Adult - REVIEW OF SYSTEMS - ADULT Constitutional: reports: weight loss. denies: chills, fever Eyes: reports: no symptoms reported Ears, Nose, Mouth & Throat: reports: no symptoms reported Cardiovascular: denies: chest pain, heart murmur, palpitations Respiratory: denies: dyspnea on exertion, shortness of breath, wheezing Gastrointestinal: reports: poor appetite, rectal bleeding. denies: abdominal pain, nausea, vomiting Genitourinary: reports: no symptoms reported Musculoskeletal: reports: no symptoms reported Integumentary: reports: no symptoms reported Neurological: denies: dizziness/vertigo, headache/migraines Psychiatric: reports: no symptoms reported Endocrine: reports: no symptoms reported Hematologic/Lymphatic: reports: see HPI, blood clots (in stool). denies: easy bruising, swollen lymph nodes Allergic/Immunologic: reports: no symptoms reported All Other Systems: Reviewed and Negative Past History - Adult - PAST MEDICAL HISTORY-ADULT Review of Records: reports: Old Records Reviewed, Nursing Assessment Review, Medications Reviewed, Social history reviewed & non-contributory. Major Childhood Illnesses: reports: denies history Cardiovascular: reports: HTN Respiratory: reports: COPD Gastrointestinal: reports: denies history (partial gastrectomy due to ulcers), ulcer Obstetrical/Gynecological: reports: denies history Genitourinary: reports: denies history Musculoskeletal: reports: denies history Neurological: reports: CVA, Seizures/Epilepsy Psychiatric: reports: denies history Endocrine/Immune: reports: Diabetes Other Conditions: reports: denies history - PRIOR SURGERIES/PROCEDURES Surgical/Procedure History: reports: other (rectal sx ) - IMMUNIZATION STATUS Childhood Immunizations: See Nurse Assessment Flu Vaccine: See Nurse Assessment - FAMILY HISTORY Family History: reviewed, not pertinent - SOCIAL HISTORY Smoking: quit greater than 1 year, cigarettes Substance Use: denies Living Situation: family Physical Exam-General - PHYSICAL EXAM-ADULT Initial Vital Signs Reviewed: Yes - CONSTITUTIONAL General Appearance: appears well, alert, mild distress, thin. negative: lethargic, slow to respond - EYES Eyes: pink conjunctivae - HEAD, EARS, NOSE, MOUTH & THROAT HENMT: normocephalic/atraumatic, moist mucous membranes, normal ENT inspection, TMs normal (mouth dry) - NECK Neck: non-tender, full range of motion, supple - RESPIRATORY Respiratory: chest non-tender, lungs clear, normal breath sounds - CARDIOVASCULAR Cardiovascular: normal peripheral pulses, regular rate, rhythm - CHEST (BREASTS) Chest/Breast: deferred - GASTROINTESTINAL (ABDOMEN) Abdominal Exam: normal bowel sounds, non tender, soft. negative: guarding, rigid, rebound, tenderness - GENITOURINARY Female Genitalia/Pelvic Exam: active bleeding (bright red/ water), blood. negative: no masses Rectal Exam: other (pt had pull up on with towel , towel was full of blood and clots). negative: mass - LYMPHATIC Lymphatic: no adenopathy - MUSCULOSKELETAL Back Exam: normal inspection, no CVA tenderness Extremity: normal range of motion, non-tender, normal gait - SKIN Integumentary: normal color, normal turgor, warm/dry - NEUROLOGIC Neurologic: grossly normal - PSYCHIATRIC Psych/Mental Status: normal mood/affect, normal thought content, normal thought process, oriented x 3 Progress - PLAN OF CARE/RESULTS Progress/Plan/Lab Results: Vital Signs - 8 hr 11/28/18 14:24 Temperature 98 F Pulse Rate 72 Respiratory Rate 18 Blood Pressure 88/38 O2 Sat by Pulse Oximetry 99 11/28/18 14:41 - Final Stool Laboratory Results - last 24 hr 11/28/18 11/28/18 14:44 14:44 WBC 12.89 H RBC 3.74 L Hgb 8.4 L Hct 28.5 L MCV 76.2 L MCH 22.5 L MCHC 29.5 L RDW Std Deviation 21.1 H Plt Count 660 H MPV 9.9 Immature Gran % (Auto) 0.2 Neut % (Auto) 68.9 Lymph % (Auto) 17.6 L [place] % (Auto) 10.2 H Eos % (Auto) 2.2 Baso % (Auto) 0.9 H Immature Gran # (Auto) 0.02 Neut # (Auto) 8.89 H Lymph # (Auto) 2.27 [place] # (Auto) 1.32 H Eos # (Auto) 0.28 Baso # (Auto) 0.11 PTT (Actin FS) 35.3 Orders Category Date Time Status FLAT/UPRIGHT ABD/1 VIEW CHEST [RAD] Stat Exams 11/28/18 14:37 Ordered CBC WITH ELECTRONIC DIFF [HEME] Stat Lab 11/28/18 14:44 Completed CK PROFILE [SP CHEM] Stat Lab 11/28/18 14:44 Received COMPREHENSIVE METABOLIC PANEL [CHEM] Stat Lab 11/28/18 14:44 Received OCCULT BLOOD DIAGNOSTIC [STOOL] Stat Lab 11/28/18 14:41 Completed PTT [COAG] Stat Lab 11/28/18 14:44 Completed TROPONIN T Stat Lab 11/28/18 14:44 Received TYPE & SCREEN [BBK] Stat Lab 11/28/18 14:44 Results 0.9% Sodium Chloride Inj [Ns] 1,000 ml Med 11/28/18 14:44 Active IV 150 mls/hr Result Diagrams: 11/28/18 14:44 11/28/18 14:44 - XRAY 1 XRAY Study: Abdomen Impression: See EMR Report (FLAT/UPRIGHT ABD/1 VIEW CHEST - 11/28/2018 INDICATION: rectal bleeding TECHNIQUE: COMPARISON: 10/17/2018 FINDINGS: The chest is clear. Heart size is top normal. There is significant levoscoliosis of the lumbar spine. There is advanced degeneration of the spine. There is mild constipation the colon. No small bowel obstruction or evidence of free air. IMPRESSION: Mild constipation. Electronically signed by Dallin Santiago 11/28/2018 3:59 PM 11/28/18 1559 Interpreting Physician: Dallin Santiago MD Dictated Date/Time: 11/28/18 1558 cc: Juancho Tirado DO; Shilpa Adam) - CONSULTS/PCP/HOSPITALIST Notification #1 *Consult/PCP/Hospitalist*: Dr Fox Time Discussed: 16:41 Consult Disposition: Will see in ED Departure - Departure Date of Disposition Decision: 11/28/18 Time of Disposition Decision: 16:41 DIAGNOSIS: Rectal bleeding Disposition: ADMITTED INPATIENT 09 Certified Medical Emergency: Emergent Condition: Fair Referrals and Follow-Ups: Shilpa Adam CRNP [Primary Care Provider] - - Critical Care Note This patient required my direct & personal management of CC.: No Attestation - Physician/ CRYS Attestation Patient care was provided by Advanced Practice Provider:: No The physician spent face to face time with patient:: Yes Advanced Practice Provider documentation review:: Supervising physician onsite and consulted in the evaluation and care of this patient. The physician did have a face to face encounter with the patient. This chart was documented by the indicated scribe, (Fadi Loredo, Rachel) and accurately reflects the services I performed and decisions made by me, Juancho Tirado DO, as attested by the provider's signature.
[2018-11-28] MEDS ORDERED: TYLENOL PO PRN (16:54)
[2018-11-28] MEDS ORDERED: ZOFRAN IV PRN (16:54)
[2018-11-28] MEDS: NS 1,000 ML IV SCH ×3 (17:14→21:29)
[2018-11-28] MEDS: PROTONIX IV SCH (17:15)
[2018-11-28] MEDS ORDERED: D50W SYRINGE IV ONE (17:28)
[2018-11-28] MEDS ORDERED: ALBUTEROL 0.5% INH CONC FOR HYPERKALEMIA INH ONE (17:28)
[2018-11-28] MEDS ORDERED: SODIUM BICARBONATE 8.4% IV ONE (17:29)
[2018-11-28] MEDS ORDERED: HUMULIN R IV ONE (17:30)
[2018-11-28 17:46] LABS: IRON SATURATION 12 %; TIBC 334 ug/dL; TOTAL IRON 40 ug/dL (49-151); UNBOUND IRON 294 ug/dL (112-346)
--- NOTE | 2018-11-28 18:02 | HISTORY AND PHYSICAL ---
PRIMARY CARE PHYSICIAN: Shilpa Adam, certified registered nurse practitioner. CHIEF COMPLAINT: "I started bleeding from my rectum this morning." HISTORY OF PRESENT ILLNESS: Ms. Lee is an 78-year-old female with a history of chronic hypoxemic respiratory failure, on home oxygen, diabetes mellitus type 2, COPD, chronic back pain, and a history of gastric ulcers, who was brought to the ER by family after the patient was noted to be having a massive amount of severe rectal bleeding with blood clots. The patient reports that this started this morning. It started as diarrhea and then became bloody, and was noted to be full of blood clots as per the daughter. The patient started feeling bad yesterday. At which time, she started to complain of abdominal cramping associated with nausea, as well as weakness and a poor appetite. The patient denies having any chest pain or shortness of breath, but does complain of dizziness and unsteadiness on her feet. The patient had rectal bleeding two weeks ago, but it resolved on its own. The patient was seen by her primary care provider two weeks ago because of the rectal bleeding. At this time, the patient denies having any abdominal cramping. She complains of back pain. In the ER, the patient was noted to have a hemoglobin of 8.4 with a hematocrit of 28. PAST MEDICAL HISTORY: 1. Chronic hypoxemic respiratory failure on home O2. 2. Hypertension. 3. Hyperlipidemia. 4. Diabetes mellitus type 2. 5. History of MRSA pneumonia. 6. Aortic stenosis. 7. COPD. 8. Cachexia. 9. Chronic back pain. 10. Gastric ulcers number. 11. History of esophageal stricture. 12. Rectal prolapse. 13. Internal hemorrhoids. 14. Anxiety disorder PAST SURGICAL HISTORY: 1. Appendectomy. 2. Partial gastrectomy. 3. Hysterectomy. 4. EGD for foreign body removal in 2017. 5. Lower back surgery. 6. Repair of a rectal prolapse. FAMILY HISTORY: Positive for coronary artery disease in the mother. ALLERGIES: No known drug allergies. SOCIAL HISTORY: The patient lives at home with family. The patient smokes half a pack of cigarettes a day, but quit about 5 months ago. She denies any alcohol or illicit drug use. HOME MEDICATIONS: The medication list is not available at this time. REVIEW OF SYSTEMS: A 12-point review of systems has been performed. Please refer to the history of present illness for pertinent positives and negatives. PHYSICAL EXAMINATION: VITAL SIGNS: Temperature 98 degrees, blood pressure 129/41, heart rate 63, O2 saturation is 100% on 2 L nasal cannula. GENERAL: This is a chronically ill-appearing, elderly female, lying on the stretcher in no acute distress. SKIN: No rashes. No lesions. Poor capillary refill. HEAD: Normocephalic, atraumatic. NECK: supple, no JVD HEART: S1, S2 normal. Regular rate and rhythm. LUNGS: Equal air entry bilaterally. No wheezing. No rales. No rhonchi. ABDOMEN: Positive bowel sounds. Soft, nontender, nondistended. EXTREMITIES: No edema. No cyanosis. No calf tenderness NEUROLOGIC: The patient is alert and oriented x4. No focal neurologic deficits noted. LABORATORY AND DIAGNOSTIC DATA: White blood cell count 12.8, hemoglobin 8.4, hematocrit 28, platelets 660,000. Sodium 139, potassium 5.6, chloride 101, CO2 of 26, BUN 28, creatinine 0.8, glucose 102. AST 31, ALT 12, alkaline phosphatase 64. Troponin less than 0.01. Albumin 3. Abdominal x-ray: mild constipation. ASSESSMENT AND PLAN: 1. Gastrointestinal bleed. We will admit the patient to the ICU, and monitor her hemoglobin and hematocrit closely. We will place the patient on a clear liquid diet and make her NPO after midnight. Gastroenterology has been consulted. We will also start the patient on IV Protonix. We will hold the patient's aspirin. 2. Microcytic anemia. We will check iron studies. We will plan to transfuse the patient p.r.n. 3. Chronic hypoxemic respiratory failure. Continue on supplemental oxygen and bronchodilator therapy. 4. Diabetes mellitus type 2. We will monitor Accu-Cheks before meals and at bedtime. We will also start the patient on sliding scale insulin. 5. Chronic obstructive pulmonary disease. Stable. 6. Leukocytosis. We will check a urinalysis and order blood cultures. We will hold off on antibiotic therapy at this time. 7. Aortic stenosis. Aware. 8. Chronic back pain. We will start the patient on p.r.n. pain medication. 9. Hyperkalemia. We will treat the elevated potassium. 10. Deep vein thrombosis prophylaxis. We will start the patient on SCDs. 11. The plan of care was discussed with the patient and her family at the bedside. They are in agreement with admission. cc: Lindy Fox MD MTDD
[2018-11-28 18:05] LABS: FERRITIN 50 ng/mL (13-150)
[2018-11-28] MEDS: SYMBICORT 160/4.5 MICROGM INHALER INH SCH (19:30)
[2018-11-28] MEDS ORDERED: KLONOPIN ONE (19:40)
[2018-11-28] MEDS ORDERED: ELAVIL PO PRN (20:04)
[2018-11-28 20:15] LABS: URINE SOURCE CATH
[2018-11-28] MEDS ORDERED: NS 150 ML IV SCH (20:15)
[2018-11-28 20:16] LABS: BASO# 0.09 X1000 (0.0-0.2); BASO% 0.5 % (0.0-0.8); EOS# 0.15 X1000 (0.0-0.7); EOS% 0.9 % (0.0-10.0); HEMATOCRIT 25.5 % (37.0-47.0); HEMOGLOBIN 7.4 g/dL (12.0-16.0); IMM GRAN# 0.05 X1000 (0.0-0.04); IMM GRAN% 0.3 % (0.0-0.5); LYMPH# 2.87 X1000 (1.2-3.4); LYMPH% 16.8 % (20.5-51.1); MCH 22.4 PG (27-31); MONO# 1.91 X1000 (0.11-0.59); MONO% 11.2 % (1.7-9.3); MPV 9.7 FL (7.4-10.4); NEUT% 70.3 % (42.2-75.2); PLT 642 X1000 (130-400); RBC 3.31 XMIL (4.2-5.4); RDW 20.8 % (11.5-14.5); WBC 17.07 X1000 (4.8-10.8)
[2018-11-28 20:27] LABS: BILIRUBIN URINE NEGATIVE (NEGATIVE); BLOOD URINE NEGATIVE (NEGATIVE); COLOR YELLOW; GLUCOSE URINE TRACE mg/dL (NEGATIVE); KETONE URINE NEGATIVE (NEGATIVE); LEUKOCYTES URINE NEGATIVE (NEGATIVE); NITRITE URINE NEGATIVE (NEGATIVE); PH URINE 6.5; PROTEIN URINE 30 mg/dL (NEGATIVE); SP GRAVITY URINE 1.023; TURBIDITY URINE CLEAR (CLEAR); UR EPITHELIAL CELLS <10 /HPF (<10); URINE BACTERIA NEGATIVE /HPF; URINE RBC <10 /HPF (<10); URINE WBC <10 /HPF (<10); UROBILINOGEN URINE NORMAL (NORMAL)
[2018-11-28 20:29] LABS: BANDS 1 % (0-1); EOS 1 % (1-10); LYMPHS 24 % (21-51); MONO 6 % (1-9); SEGS 66 % (42-75); TARGET CELLS OCCASIONAL
[2018-11-28 20:30] LABS: ANISOCYTOSIS 1+; LARGE PLATELETS OCCASIONAL
[2018-11-28] MEDS ORDERED: NS 1,000 ML IV SCH (20:30)
[2018-11-28] MEDS: ROCEPHIN 1 GM in NS 50 ML IV SCH (20:37)
[2018-11-28] MEDS: NORCO-10 PO PRN (20:41)
[2018-11-28] MEDS: KLONOPIN PO SCH (21:00)
[2018-11-28] MEDS: HUMULIN R SUBQ SCH (21:00)
[2018-11-28] MEDS: NEURONTIN PO SCH (21:00)
[2018-11-28] MEDS ORDERED: NS 500 ML IV ONE (21:22)
[2018-11-28] MEDS ORDERED: LEVOPHED 8 MG in D5 1/2 NS 250 ML IV SCH (21:30)
[2018-11-28 21:51] LABS: INR 1.17; PROTIME 15.1 Seconds (11.0-16.0)
[2018-11-28] MEDS: DILAUDID IV PRN (23:57)
[2018-11-29 01:12] LABS: HEMATOCRIT 28.5 % (37.0-47.0); HEMOGLOBIN 8.6 g/dL (12.0-16.0)
[2018-11-29] MEDS: KLONOPIN PO SCH ×3 (01:20→20:49)
[2018-11-29] MEDS: NS 1,000 ML IV SCH ×5 (01:24→20:47)
[2018-11-29] MEDS: NORCO-10 PO PRN ×4 (03:51→22:57)
[2018-11-29] MEDS: PROTONIX IV SCH ×2 (06:13→17:31)
[2018-11-29] MEDS: HUMULIN R SUBQ SCH ×4 (06:21→20:49)
[2018-11-29 06:36] LABS: HEMATOCRIT 26.4 % (37.0-47.0); HEMOGLOBIN 7.9 g/dL (12.0-16.0); MCH 24.6 PG (27-31); MCHC 29.9 g/dL (33-37); MCV 82.2 FL (81-99); RBC 3.21 XMIL (4.2-5.4); RDW 20.8 % (11.5-14.5); WBC 10.56 X1000 (4.8-10.8)
[2018-11-29 07:09] LABS: AGAP 11; BUN 22 mg/dL (8-22); CALCIUM 8.3 mg/dL (8.8-10.2); CHLORIDE 107 mmol/L (98-107); COSMO 285; CREATININE 0.6 mg/dL (0.5-0.9); ESTIMATED GFR > 60; GLUCOSE 73 mg/dL (70-104); SODIUM 142 mmol/L (136-145); TCO2 24 mmol/L (25-35)
[2018-11-29] MEDS: SYMBICORT 160/4.5 MICROGM INHALER INH SCH ×2 (08:24→19:39)
[2018-11-29] MEDS: NEURONTIN PO SCH ×2 (08:39→20:48)
--- NOTE | 2018-11-29 11:25 | GASTROENTEROLOGY CONSULTATION ---
DATE: 11/29/2018 REASON FOR CONSULTATION: Hematochezia. HISTORY OF PRESENT ILLNESS: Ms. Hortensia Lee is an 78-year-old woman with a past medical history of COPD, hypertension, hyperlipidemia, insulin-dependent diabetes type 2, remote history of peptic ulcer disease requiring a partial gastrectomy, Bray's esophagus, colonic polyps, diverticulosis, history of hemorrhoids, and rectal prolapse repair, who presents with a 1-day history of hematochezia with bright red blood and clots. The patient reports having a couple of episodes yesterday without any significant abdominal pain. No nausea, vomiting, chest pain, shortness of breath, lightheadedness, dizziness, or melena. She has been losing some weight, which she attributes to recent treatment of thrush and difficulty taking in p.o. She did have some scant rectal bleeding a couple weeks ago for which she was seen by her primary care doctor. Her last colonoscopy was in 2015. It was done by Dr. Davis. She was found to have several small colonic polyps, hemorrhoids, diverticulosis. However, the prep was inadequate. Her last EGD was done at that time, which showed Bray's esophagus without any ulcers. She does take aspirin 81 mg per day. No NSAIDs. No other blood thinners. REVIEW OF SYSTEMS: As per HPI. Otherwise, 12 point review of systems is negative. PAST MEDICAL HISTORY: As per HPI. She has chronic back pain as well. PAST SURGICAL HISTORY: Hysterectomy, appendectomy, partial gastrectomy, rectal prolapse repair. FAMILY HISTORY: No family history of GI malignancies. ALLERGIES: No known drug allergies. HOME MEDICATIONS: Have not been reconciled. However, her last discharge on 10/17/2018, she was on Coreg, losartan, clonazepam, furosemide, Blackfoot, pantoprazole, acetaminophen, Dulcolax, aspirin, Pulmicort, Januvia, Crestor, gabapentin, Elavil, DuoNebs. SOCIAL HISTORY: She lives at home with her daughter. She smoked a half pack per day in the past but quit 5 months ago. No alcohol or drug use. PHYSICAL EXAMINATION: Vital Signs: Temperature is 98.6 degrees, heart rate 74, respiratory rate 18, blood pressure 151/59, O2 saturation 100% on 2 L nasal cannula. General: The patient is awake, alert, oriented, in no acute distress. HEENT: Sclerae are anicteric. Moist mucous membranes. Extraocular motor intact. Neck: Supple. No JVD or lymphadenopathy. Cardiac: Regular rate and rhythm. No murmurs. Lungs: Clear to auscultation bilaterally. No wheezing. Abdomen: Soft, nontender, nondistended. Normoactive bowel sounds. No rebound or guarding. Extremities: No clubbing, cyanosis, or edema. Neurologic: Nonfocal. LABS: White count of 10.5 from 17.0 yesterday, hemoglobin 8.6 from 7.4. She has received 1 unit of packed red blood cells. Her baseline hemoglobin is between 10 and 11, platelets of 487,000. Sodium 142, potassium 4.0 from 5.6, chloride of 104, bicarb 24, BUN of 22, creatinine 0.6, glucose is 73. LFTs are normal. Iron studies show a mildly low iron of 40. Folate is high. B12 is normal. UA showed trace protein. IMAGING: Abdominal x-ray showed mild constipation. ASSESSMENT AND PLAN: Ms. Hortensia Lee is an 78-year-old woman with a past medical history of diverticulosis, partial gastrectomy from peptic ulcer disease, Bray's esophagus, gastroesophageal reflux disease, severe protein calorie malnutrition, colonic polyps, history of rectal prolapse, and hemorrhoids, who presents with acute onset hematochezia with blood clots and bright red blood per rectum. The etiology for bleeding is likely diverticular in nature. She has not had any further bleeding since being here in the hospital. She is on aspirin 81 mg daily. Her last esophagogastroduodenoscopy was done in [address] Gong which showed food impaction, esophageal stricture, and postsurgical anatomy but no ulcers. Her labs here are notable for hemoglobin of 8.6 after 1 unit of packed red blood cells. Her MCV is chronically low below 80, suggestive of iron deficiency and chronic blood loss. She had some mild hyperkalemia that is now improved in the setting of volume depletion. Her leukocytosis and thrombocytosis have improved with fluids, likely hemoconcentration. There are no signs of infection. She is currently hemodynamically stable. We will put her on clear liquids today and plan for a diagnostic colonoscopy tomorrow. Continue to trend her hemoglobin and hematocrit daily. Transfuse as needed to maintain a hemoglobin between 7 and 8. She will need to be put on iron therapy at some point upon discharge. Thank you for this consult. We will follow with you. Please call with any questions or concerns.
[2018-11-29] MEDS ORDERED: GOLYTELY PO ONE (14:00)
--- NOTE | 2018-11-29 18:56 | PROGRESS NOTE ---
DATE: 11/29/2018 SUBJECTIVE: The patient is resting comfortably in bed. She complains of back pain. OBJECTIVE: Vital Signs: Temperature 98.6 degrees, blood pressure 138/63, heart rate 75, respirations 18, O2 saturation 100% on 2 L nasal cannula. General: This is an elderly female lying in bed in no acute distress. Heart: S1, S2 normal. Regular rate and rhythm. Lungs: Equal air entry bilaterally. No wheezing. No rales. No rhonchi. Abdomen: Positive bowel sounds. Soft, nontender, nondistended. Extremities: No edema. No cyanosis. Neurologic: The patient is alert and oriented x3. LABS: White blood cell count 10, hemoglobin 8.6, hematocrit 28, platelets 487,000. Sodium 142, potassium 4, chloride 107, CO2 24, BUN 22, creatinine 0.6, glucose 98. ASSESSMENT AND PLAN: 1. Gastrointestinal bleed. The patient is scheduled to undergo endoscopy tomorrow. 2. Diabetes mellitus type 2. Continue with sliding scale insulin. 3. Chronic hypoxemic respiratory failure. Stable. 4. Anxiety disorder. Continue on Xanax. 5. Chronic back pain. Continue with p.r.n. pain medication. 6. Iron deficiency anemia. Likely secondary to the patient's gastrointestinal bleeding. The patient will need iron supplementation. 7. Hyperkalemia. Resolved. 8. Deep vein thrombosis prophylaxis. Continue with sequential compression devices. cc: Lindy Fox MD MTDAllyssa
[2018-11-29] MEDS: ROCEPHIN 1 GM in NS 50 ML IV SCH (20:48)
[2018-11-30] MEDS: PROTONIX IV SCH ×2 (04:28→17:32)
[2018-11-30] MEDS: SODIUM CHLORIDE 0.9% INJ SCH ×2 (04:28→17:32)
[2018-11-30] MEDS: DILAUDID IV PRN ×5 (05:21→21:23)
[2018-11-30] MEDS: HUMULIN R SUBQ SCH ×4 (06:22→20:27)
[2018-11-30 06:27] LABS: HEMATOCRIT 27.5 % (37.0-47.0); HEMOGLOBIN 8.3 g/dL (12.0-16.0); MCH 24.2 PG (27-31); MCHC 30.2 g/dL (33-37); MCV 80.2 FL (81-99); RBC 3.43 XMIL (4.2-5.4); RDW 21.7 % (11.5-14.5); WBC 7.24 X1000 (4.8-10.8)
[2018-11-30 07:03] LABS: AGAP 10; BUN 8 mg/dL (8-22); CALCIUM 8.3 mg/dL (8.8-10.2); CHLORIDE 110 mmol/L (98-107); COSMO 281; CREATININE 0.5 mg/dL (0.5-0.9); ESTIMATED GFR > 60; GLUCOSE 83 mg/dL (70-104); POTASSIUM 3.1 mmol/L (3.5-5.1); SODIUM 142 mmol/L (136-145); TCO2 22 mmol/L (25-35)
[2018-11-30] MEDS: SYMBICORT 160/4.5 MICROGM INHALER INH SCH ×2 (08:00→19:42)
[2018-11-30] MEDS ORDERED: POTASSIUM CHLORIDE 60 MEQ in NS 500 ML IV ONE (08:32)
[2018-11-30] MEDS: NS 1,000 ML IV SCH ×3 (09:17→21:40)
[2018-11-30] MEDS: KLONOPIN PO SCH (09:38)
[2018-11-30] MEDS: NEURONTIN PO SCH (09:39)
[2018-11-30] MEDS ORDERED: XYLOCAINE-MPF 2% ONE ×2 (11:09→11:10)
[2018-11-30] MEDS ORDERED: AMIDATE ONE (11:11)
--- NOTE | 2018-11-30 11:36 | ENDOSCOPY OPERATIVE NOTE ---
[facility] ENDOSCOPY OPERATIVE NOTE , PATIENT: Hortensia Lee ADM DATE: 11/30/2018 MR #: [id number] : 1940 COLONOSCOPY PROCEDURE REPORT PROCEDURE DATE: 11/30/2018 SURGEON: Haroon Davis MD STATUS: inpatient RUG CUTTER HELPER: Maggie Burciaga and Jono Wade PREOPERATIVE DIAGNOSIS: The patient is a 78 yr old female here for a colonoscopy due to Hematochezia , Anemia. PROCEDURE PERFORMED: Colonoscopy, diagnostic MEDICATIONS: Per Anesthesia PREP TYPE: GoLytely
[2018-11-30] MEDS ORDERED: MAGNESIUM SULFATE 2 GM/S.W.I. 2 GM/50 ML IVPB IV ONE (12:22)
--- NOTE | 2018-11-30 13:09 | Diag Imaging Result Doc PS360 ---
EXAM: CT ABDOMEN/PELVIS W/O CONTRAST INDICATION: colon perforation TECHNIQUE: This exam was performed using automated exposure control, adjustment of mA or kV according to patient size, and/or use of iterative reconstruction technique. COMPARISON: None. FINDINGS: There are small pleural effusions and adjacent atelectasis at both lung bases. There is an opacity in the lingula that appears vaguely nodular measuring up to 1 cm. This also probably represents atelectasis or focal inflammation. However, a follow-up CT in 3 months is recommended based on Fleischner Society criteria to assess stability. There are multiple droplets of extraluminal free gas in the nondependent portion of the abdomen. This is consistent with the suspected colonic perforation during colonoscopy. The exact source cannot be determined on this CT. However, it was suspected to be near the rectosigmoid junction on colonoscopy. Indeed, the rectosigmoid region does appear to be somewhat thickened. However, no extraluminal gas can be identified directly adjacent to this segment on the current study. There is no evidence of bowel obstruction. No pericolonic abscess can be identified. The gallbladder and liver are grossly unremarkable. The spleen is not identified and has probably been resected. The pancreas is not well-visualized due to excessive motion artifact. There may be a few pancreatic calcifications which could indicate chronic pancreatitis. The adrenal glands, kidneys, and urinary bladder are unremarkable. There is a 3.6 cm infrarenal abdominal aortic aneurysm with evidence of stent graft repair. There is extensive aortoiliac atherosclerotic calcification. There is scoliosis and extensive degenerative arthropathy throughout the lumbar spine. There is no evidence of acute osseous abnormality. IMPRESSION: 1.Small to moderate amount of extraluminal free gas in the abdomen consistent with the given history of suspected colonic perforation. Please see above discussion. 2.Bilateral small pleural effusions and bibasilar atelectasis. 3.Slightly nodular opacity involving the lingula. Please see above discussion. 4.Other incidental/nonacute findings detailed above. Electronically signed by Tyron Harper 11/30/2018 1:06 PM
[2018-11-30] MEDS: ZOSYN 3.375 GM in NS 50 ML IV SCH ×3 (13:20→23:31)
[2018-11-30] MEDS: MORPHINE IV PRN ×4 (14:28→23:30)
--- NOTE | 2018-11-30 14:36 | PROGRESS NOTE ---
DATE: 11/30/2018 SUBJECTIVE: The patient is resting comfortably. She complains of mild abdominal pain. OBJECTIVE: Vital Signs: Temperature 98.7 degrees, blood pressure 114/57, heart rate 68, respirations 15, O2 saturation is 100% on 2 L nasal cannula. General: This is a chronically ill- appearing, elderly female lying in bed, in no acute distress. Heart: S1, S2 normal. Regular rate and rhythm. Lungs: Equal air entry bilaterally. No wheezing. No rales. Abdomen: Positive bowel sounds. Soft. Diffuse tenderness. Extremities: No edema. No cyanosis. Neurologic: The patient is alert and oriented x3. Labs: White blood cell count 7.2, hemoglobin 8.3, hematocrit 27, platelets 492,000. Sodium 142, potassium 3.1, magnesium 1.4, BUN 8, creatinine 0.5, chloride 110, CO2 of 22, calcium 8.3. Imaging: A CT of the abdomen and pelvis revealed a small to moderate amount of extraluminal free gas in the abdomen, consistent with a suspected colonic perforation. Nodular opacity in the lingula. Bilateral small pleural effusions. ASSESSMENT AND PLAN: 1. Gastrointestinal bleed. The patient's hemoglobin and hematocrit are stable. 2. Free air with a suspected colonic perforation. The patient is being followed closely by the general surgeon. The patient is currently NPO. We will continue with antibiotics and intravenous fluids. 3. Diabetes mellitus type 2. Continue on sliding scale insulin. 4. Abdominal aortic aneurysm status post repair. Aware. 5. Chronic hypoxemic respiratory failure. Stable. 6. Lingular nodule. We will monitor this closely. The patient will likely need a repeat CT in 3 months. 7. Chronic back pain. Aware. Continue with as needed pain medication. 8. Iron deficiency anemia. Aware. We will start iron supplementation once the patient is cleared for oral intake. 9. Hypokalemia. We will replace the patient's potassium. 10. Hypomagnesemia. We will replace the patient's magnesium. 11. Deep vein thrombosis prophylaxis. Continue with sequential compression devices. cc: MD STONEY Fontenot
[2018-11-30] MEDS: ATIVAN IV PRN ×2 (15:38→20:53)
--- NOTE | 2018-11-30 19:44 | GENERAL SURGERY CONSULTATION ---
DATE: 11/30/2018 REQUESTING PHYSICIAN: Dr. Davis. REASON FOR CONSULTATION: Possible colonic perforation. HISTORY OF PRESENT ILLNESS: An 78-year-old female who is currently undergoing a colonoscopy for hematochezia and anemia. The patient was in the operating room at the time of my evaluation, still sedated, so was unable to give further information, but apparently per Dr. Davis there was a stricture noted in the retrosigmoid junction and felt like there was a perforation during the procedure. The patient is still sedated, so hard to get a physical exam, but we have ordered a stat CT scan again. No other additional history can be achieved at this point secondary to patient's sedation. PAST MEDICAL HISTORY: Includes: 1. Chronic hypoxic respiratory failure with home O2. 2. Hypertension. 3. Hyperlipidemia. 4. Diabetes mellitus type 2. 5. History of MRSA pneumonia. 6. Aortic stenosis. 7. COPD. 8. Cachexia. 9. Chronic back pain. 10. Gastric ulcers. 11. History of esophageal strictures. 12. History of rectal prolapse. 13. History of internal hemorrhoids. 14. History of anxiety disorder. PAST SURGICAL HISTORY: Includes: 1. Appendectomy. 2. Partial gastrectomy. 3. Hysterectomy. 4. EGD for foreign body removal. 5. Lower back surgery. 6. Repair of rectal prolapse. FAMILY HISTORY: Reviewed. Patient positive for coronary artery disease. ALLERGIES: None. SOCIAL HISTORY: Former smoker, quit 5 months ago. HOME MEDICATIONS: Being reviewed. REVIEW OF SYSTEMS: Unable to obtain secondary to patient's sedation. PHYSICAL EXAMINATION: Vital Signs: Patient is currently afebrile. Her vital signs stable. General: Sedated. HEENT: Normocephalic, atraumatic. Pupils equal, round, reactive to light. Mucous membranes moist. Oropharynx benign. Neck: Supple. Trachea midline. Cardiovascular: Regular rate and rhythm. Lungs: Grossly clear. Abdomen: Soft. No peritoneal signs. Difficult exam secondary to sedation. Extremities: Moves all extremities. Neurologic: Grossly intact, but patient is sedated. Vascular: All extremities perfused. LABORATORY: Reviewed from this morning. IMAGING: CT scan pending. ASSESSMENT AND PLAN: An 78-year-old female with possible perforation of the colon. At this time, we will get a stat CT scan. We will follow up with the results. If any obvious issue, we will plan on surgical intervention and discuss further with family. cc: Noah Chowdhury MD
--- NOTE | 2018-11-30 20:42 | GENERAL SURGERY PROGRESS NOTE ---
DATE: 11/30/[address] scan with Dr. Harper. There appears to be a perforation with some free air. The patient is up on the ICU. She is a little tachycardic, complained of lower abdominal pain. I had an extensive discussion with the patient and family members at the bedside. Offered them the choice of surgery which would likely consist of a diverting colostomy versus management with IV antibiotics. Given her comorbidities, discussed with them the possibility that she may remain on the ventilator for some period of time and that she might not do well postoperatively just from the strain to her heart and lungs. Given this, the patient made the choice that she wants to try antibiotics. We will keep her on her Zosyn. We will monitor her closely. Keep her on bowel rest. If she has any kind of clinical deterioration, discussed with the family that we need to take her to the operating room. I did update Dr. Fox, who is the hospitalist following her. We will continue to follow. cc: Noah Chowdhury MD MTDAllyssa
[2018-12-01] MEDS: ATIVAN IV PRN ×4 (00:06→22:05)
--- NOTE | 2018-12-01 00:33 | GENERAL SURGERY PROGRESS NOTE ---
DATE: 11/30/2018 Came to see patient again. Still having some abdominal discomfort but she is not hemodynamically unstable. She is not tachycardic. Her blood pressure is fine. She still wants to try to proceed with nonoperative management. Will continue to follow. cc: Noah Chowdhury MD
[2018-12-01] MEDS: DILAUDID IV PRN ×5 (01:28→19:28)
[2018-12-01] MEDS: MORPHINE IV PRN ×3 (02:43→21:47)
[2018-12-01] MEDS: PROTONIX IV SCH ×2 (05:34→17:47)
[2018-12-01] MEDS: SODIUM CHLORIDE 0.9% INJ SCH ×2 (05:34→17:47)
[2018-12-01] MEDS: ZOSYN 3.375 GM in NS 50 ML IV SCH ×3 (06:00→17:47)
[2018-12-01] MEDS: HUMULIN R SUBQ SCH ×4 (06:59→21:47)
[2018-12-01] MEDS: SYMBICORT 160/4.5 MICROGM INHALER INH SCH ×2 (08:08→19:55)
[2018-12-01 08:44] LABS: HEMATOCRIT 31.3 % (37.0-47.0); HEMOGLOBIN 9.6 g/dL (12.0-16.0); MCH 24.2 PG (27-31); MCHC 30.7 g/dL (33-37); MCV 78.8 FL (81-99); MPV 9.6 FL (7.4-10.4); RBC 3.97 XMIL (4.2-5.4); RDW 22.5 % (11.5-14.5); WBC 22.16 X1000 (4.8-10.8)
[2018-12-01 09:32] LABS: AGAP 13; BUN 9 mg/dL (8-22); CALCIUM 8.3 mg/dL (8.8-10.2); CHLORIDE 109 mmol/L (98-107); COSMO 284; CREATININE 0.7 mg/dL (0.5-0.9); ESTIMATED GFR > 60; GLUCOSE 130 mg/dL (70-104); POTASSIUM 3.4 mmol/L (3.5-5.1); SODIUM 142 mmol/L (136-145); TCO2 20 mmol/L (25-35)
[2018-12-01] MEDS: NS 1,000 ML IV SCH (10:12)
--- NOTE | 2018-12-01 11:08 | GENERAL SURGERY PROGRESS NOTE ---
DATE: 12/01/2018 SUBJECTIVE: The patient is still complaining of some abdominal pain, in which she has recently gotten pain medicine and it feel a little bit better. OBJECTIVE: Vital Signs: The patient is currently afebrile. Her vital signs have been stable. General: Resting in bed. HEENT: Normocephalic, atraumatic. Pupils equal, round, reactive to light. Mucous membranes moist. Oropharynx benign. Neck: Supple. Trachea midline. Cardiovascular: Regular rate and rhythm. Lungs: Grossly clear. Abdomen: Soft. Tender to palpation diffusely, but no peritoneal signs. Extremities: Moves all extremities. Neurologic: Grossly intact. Skin: No signs of jaundice. Vascular: All extremities perfused. LABORATORY DATA: Pending this morning. ASSESSMENT AND PLAN: An 78-year-old female with perforated colon. Perforated colon. At this time, will continue management with intravenous antibiotics as per request and discussion with the family. At this point, will monitor her closely with serial exams, and make further recommendations if anything changes. cc: Noah Chowdhury MD
--- NOTE | 2018-12-01 13:51 | Diag Imaging Result Doc PS360 ---
KUB ABDOMEN - 12/01/2018 INDICATION: colon perforation COMPARISON: 11/28/2018 FINDINGS: Stable surgical clips in the epigastrium. There are a few mildly gas-distended loops of small bowel measuring up to 2.8 cm. Very little colon gas. IMPRESSION: Nonspecific abdomen. Electronically signed by Dallin Santiago 12/01/2018 1:48 PM
[2018-12-01] MEDS: CLINIMIX E 4.25%-5% SOLUTION 1,000 ML IV SCH (14:00)
--- NOTE | 2018-12-01 14:52 | GASTROENTEROLOGY PROGRESS NOTE ---
DATE: 12/01/2018 SUBJECTIVE: Ms. Lee 78 year old female resting in bed, family at the bedside, denied any nausea, vomiting or diarrhea. The patient is currently NPO, family members want to see if the patient can get better with the antibiotics and would like to decide later about the surgery, they have discussed this plan with the surgeon. OBJECTIVE: Vital Signs: Temperature 99.4 degrees, pulse is 102, respirations are 24, blood pressure is 115/54, oxygen saturation is 100, she is on 2 L nasal cannula. Weight 104.7 pounds, BMI is 19.2 kg/m2. General: She is alert and oriented x2, and in no acute distress. HEENT: Pale conjunctivae. No icterus. PERRL. Neck: Supple. Lungs: Clear to auscultation in anterior and posterior rothman. Cardiac: Regular rate and rhythm. No murmurs, rubs, or gallops heard on auscultation. Abdomen: Soft, nontender, nondistended. Active bowel sounds heard in all 4 quadrants. Extremities: No clubbing, cyanosis, or edema. Pedal pulses 2+ present bilaterally. Neurologic: Alert, oriented x2. IMAGING AND LABORATORY DATA: WBCs 22.16, RBCs 3.97, hemoglobin is 9.6, hematocrit is 31.3, platelet count is 533,000. Sodium is 142, potassium is 3.4, chloride is 109, carbon dioxide is 20, anion gap is 13, BUN is 9, creatinine 0.7, glucose is 130, calcium is 8.3. Urinalysis on 11/28/2018 showed trace of protein. Blood cultures in [address] showed [address] abdomen and pelvis showed [id number] amount of extraluminal free gas in the abdomen, suspected colonic perforation, bilateral small pleural effusion and bibasilar atelectasis, slightly nodular opacity involving the lingula. Abdominal x-ray showed mild constipation. EGD done yesterday showed strictures noted in the rectosigmoid region, with diverticulosis in the area. No evidence of fresh or old blood in the rectum or sigmoid. Colon perforation was noted in the rectosigmoid area. IMPRESSION: 1. Gastrointestinal bleed. 2. Anemia. 3. Diabetes type 2. 4. Chronic obstructive pulmonary disease. 5. Leukocytosis. 6. Chronic back pain 7. Dehydration PLAN: The patient is currently NPO, we have ordered IV fluids clinimix 75 mls/hr for nutrition and dehydration. She is on Protonix IV twice a day for her GI bleed, antiemetics, Zofran for nausea and vomiting. She is on antibiotic, Zosyn.for her leukocytosis. Surgery was consulted, and as per the family, they want to wait and see if the antibiotics can resolve her problem. We have ordered KUB of the abdomen, will continue to monitor her CBC and BMP, continue to follow the plan of care per PCP and the surgery team. Addressed all questions and concerns of family members. This plan was discussed with Dr. Park. Please call us for any further questions or concerns. Dictated by FLORENTIN Lopes for Jason Park MD cc: Jason Park MD MTD
--- NOTE | 2018-12-01 16:28 | PROGRESS NOTE ---
DATE: 12/01/2018 INTERVAL HISTORY: The patient with no obvious bleeding. Still with some abdominal pain but improved from previous. Afebrile overnight. No new complaints. No acute events. REVIEW OF SYSTEMS: Twelve point review of systems negative except as per interval history. LABS: WBC 22.1, hemoglobin 9.6, hematocrit 31.3, platelets 533,000. Sodium 142, potassium 3.4, bicarb 20, BUN 9, creatinine 0.7, glucose 130. IMAGING: Abdominal x-ray essentially nonspecific with no clear acute process. VITALS: T-max 99.4 degrees, pulse 113, respiratory rate 31, blood pressure 134/56, O2 saturation 99% on 2 L by nasal cannula. PHYSICAL EXAMINATION: General: No acute distress. Vitals: As above. HEENT: Normocephalic, atraumatic. Moist mucous membranes. No cervical adenopathy. Cardiovascular: Slightly tachycardic but regular. Pulmonary: Clear to auscultation bilaterally. Abdomen: Minimal diffuse tenderness without rebound or guarding. Bowel sounds positive. Extremities: No clubbing or cyanosis. Peripheral pulses intact. Neurologic: Mild global weakness, but no clear focal deficits. Psychiatric: Asleep but arousable, cooperative. Skin: No new rashes or lesions identified. ASSESSMENT AND PLAN: 1. GI bleed, status post scope. Blood counts stable to somewhat improved. 2. Suspected colon perforation. The patient continues to be followed closely. Abdominal pain much improved. Tenderness also improved. Continue patient NPO until cleared by Surgery. Continue IV fluids. On antibiotics with Zosyn. 3. Chronic hypoxemic respiratory failure, stable on home 2 L, may actually not even need that. 4. Small pulmonary nodule, likely incidental finding, but the patient will need a repeat CT in 3 to 6 months. 5. Chronic back pain, reasonably controlled. 6. Iron deficiency anemia. We will plan on starting p.o. iron once patient is able to take p.o. 7. Hypokalemia, still a little low but improved from previous. Will further replete and monitor. 8. Hypomagnesemia. Repeat pending. We will replete if needed. 9. Hyperlipidemia. Home Crestor currently on hold. 10. Hypertension. Currently holding home hydrochlorothiazide and Coreg with reasonable blood pressure control. Continue to hold those medications and monitor.
[2018-12-01] MEDS: POTASSIUM CHLORIDE 20 MEQ/SWI 20 MEQ/100 ML IVPB IV SCH ×2 (17:47→19:28)
[2018-12-01] MEDS: OFIRMEV 1000 MG/ISOTONIC SOLN 1,000 MG/100 ML BOTTLE IV PRN (17:48)
[2018-12-01] MEDS ORDERED: NS NEB INH SCH (22:30)
[2018-12-01] MEDS: XOPENEX NEB INH SCH (23:02)
[2018-12-01] MEDS: ATROVENT NEB INH SCH (23:02)
[2018-12-02] MEDS: DILAUDID IV PRN ×5 (00:01→19:47)
[2018-12-02] MEDS: NS 1,000 ML IV SCH ×2 (00:01→12:25)
[2018-12-02] MEDS: ZOSYN 3.375 GM in NS 50 ML IV SCH ×4 (00:04→17:40)
[2018-12-02] MEDS: MORPHINE IV PRN ×5 (02:55→23:20)
[2018-12-02] MEDS: ATIVAN IV PRN ×3 (02:55→17:44)
[2018-12-02] MEDS: CLINIMIX E 4.25%-5% SOLUTION 1,000 ML IV SCH ×2 (02:55→15:46)
[2018-12-02] MEDS: XOPENEX NEB INH SCH ×6 (03:46→23:37)
[2018-12-02] MEDS: ATROVENT NEB INH SCH ×6 (03:46→23:37)
[2018-12-02] MEDS: PROTONIX IV SCH ×2 (05:41→17:40)
[2018-12-02 06:17] LABS: HEMOGLOBIN 7.7 g/dL (12.0-16.0); MCH 24.8 PG (27-31); MCHC 30.8 g/dL (33-37); MCV 80.4 FL (81-99); MPV 10.3 FL (7.4-10.4); RBC 3.11 XMIL (4.2-5.4); RDW 23.1 % (11.5-14.5); WBC 15.55 X1000 (4.8-10.8)
[2018-12-02 06:46] LABS: AGAP 9; BUN 20 mg/dL (8-22); CALCIUM 8.4 mg/dL (8.8-10.2); CHLORIDE 112 mmol/L (98-107); COSMO 287; CREATININE 0.6 mg/dL (0.5-0.9); ESTIMATED GFR > 60; GLUCOSE 153 mg/dL (70-104); MAGNESIUM 1.6 mg/dL (1.5-2.7); SODIUM 141 mmol/L (136-145); TCO2 20 mmol/L (25-35)
[2018-12-02] MEDS: HUMULIN R SUBQ SCH ×4 (07:26→20:28)
--- NOTE | 2018-12-02 09:26 | GENERAL SURGERY PROGRESS NOTE ---
DATE: 12/02/2018 SUBJECTIVE: Patient is complaining of pain but she says it is feeling better than it was. She did have an abdominal film yesterday, did not show any major pathology or significant increase in free air. OBJECTIVE: Vital Signs: Patient is currently afebrile. Her vital signs appear to be stable. General exam: No acute distress but appears uncomfortable, chronically ill female looks stated age. HEENT: Normocephalic, atraumatic. Pupils equal, round, reactive to light. Mucous membranes moist. Oropharynx benign. Neck: Supple. Trachea midline. Cardiovascular: Regular rhythm. Lungs: Grossly clear. Abdomen: Soft, tender bilateral lower quadrants. Overall, slightly improved compared to previous days. Extremities: Moves all extremities. Neurologic: Grossly intact. Skin: No signs of jaundice. Vascular: All extremities perfused. LABORATORY: Reviewed from yesterday. White blood cell count did go up to 22 from 7. ASSESSMENT/PLAN: 78-year-old female with perforated colon. #1 perforated colon. At this time, we will continue IV antibiotics. The patient wants to continue the IV antibiotics for now. She is high risk for surgery. She has not had any clinical decline, although her leukocytosis has worsened. She seems to be hemodynamically stable and I think her abdominal exam is improving. Per the patient's wishes we will continue current treatment and monitor for any change. cc: Noah Chowhdury MD
[2018-12-02 13:23] LABS: HEMATOCRIT 24.3 % (37.0-47.0); HEMOGLOBIN 7.4 g/dL (12.0-16.0)
--- NOTE | 2018-12-02 14:04 | GASTROENTEROLOGY PROGRESS NOTE ---
DATE: 12/02/2018 SUBJECTIVE: Ms. Lee 78 year old female resting in bed. She is NPO and is on Clinimix IV fluids for her nutrition. She has denied any nausea or vomiting She had one bowel movement today and it was liquid in consistency. C/O of tenderness in abdomen. OBJECTIVE: Vital Signs: Temperature 100.5 degrees, pulse is 94, respirations 27, blood pressure is 121/61, oxygen saturation is 100% on 2 L nasal cannula. General: She is alert, oriented x2, and in no acute distress. Weight is 104.7 pounds. BMI is 19.2 kg/m2. HEENT: Pale conjunctivae. No icterus. PERRL. Neck: Supple. Lungs: Clear to auscultation in anterior rothman. Cardiac: Regular rate and rhythm. No murmurs, rubs, or gallops heard on auscultation. Abdomen: Soft, tender, distended, involuntary guarding. Active bowel sounds in all 4 quadrants. Extremities: No clubbing, cyanosis, or edema noted. Pedal pulses 2+ present bilaterally. Neurological: Alert, oriented x2. LABORATORY: WBCs 15.55, RBCs 3.11, hemoglobin 7.7, hematocrit is 25, platelet count is 477,000. Sodium is 141, potassium is 4.0, chloride 112, carbon dioxide is 20, anion gap 9, BUN 20, creatinine 0.6, glucose is 153, calcium 8.4, magnesium is 1.6. Abdominal x-ray showed nonspecific abdomen. Abdominal CT and pelvis showed small to moderate amount of extraluminal free gas in the abdomen, bilateral small pleural effusions and bibasilar atelectasis, slightly nodular opacity involving the lingula. Abdominal x-ray on 11/28 showed mild constipation. EGD on 11/30 showed colon perforation at the rectosigmoid area, severe diverticulosis in the sigmoid and associated colitis. IMPRESSION AND PLAN: GI Bleed Anemia Colon perforation Diverticulosis COPD Type II diabetes Leukocytosis Chronic back pain Dehydration PLAN: The patient is currently NPO, but she is on Clinimix 75 mL/hr for her nutrition and dehydration. We have put a ruby on rails software developer consult for TPN. Continue Protonix 40 mg IV twice a day for GI bleed, Zofran PRN for Nausea and vomiting . She is on antibiotic Zosyn for her leukocytosis and her WBC today was 15.55, it has been trending down. Her COPD, diabetes and back pain is managed by her PCP. As per the surgery team, family wants to wait and see if it can be resolved through antibiotics. Patient's abdomen is tender, We have ordered a CT of the abdomen w/o contrast for colon perforation follow up. Will continue to monitor her CBC and BMP, follow plan of care per PCP and surgery team. This plan was discussed with Dr. Davis. Please call us with any further questions or concerns. Dictated by FLORENTIN Lopes for Haroon Davis MD cc: Haroon Davis MD Patient seen and examined and I agree with the above plan of care. Discussed the above plan of care with the patient and RN at bedside and all questions were answered. Please call us with any further questions. STONEY
--- NOTE | 2018-12-02 14:07 | PROGRESS NOTE ---
DATE: 12/02/2018 INTERVAL HISTORY: Patient with fever overnight up to 101.2. Another low-grade fever this morning to 100.5. No obvious signs or symptoms of bleeding but some drop in her blood counts. Abdominal pain about the same. No new complaints. No other acute events overnight. REVIEW OF SYSTEMS: Twelve point review of systems negative except as per interval history. LABS: WBC 15.5, hemoglobin 7.7 and repeat 7.4, hematocrit 25.0 and repeat 24.3. Sodium 141, potassium 4, BUN 20, creatinine 0.6, glucose 144, magnesium 1.6. VITALS: T-max 101.2 degrees, pulse 94, respirations 28, blood pressure 144/67, O2 saturation 100% on 2 L by nasal cannula. PHYSICAL EXAMINATION: General: No acute distress. Vitals: As above. HEENT: Normocephalic, atraumatic. Moist mucous membranes. No cervical adenopathy. Cardiovascular: Remains a little tachycardic but regular. Pulmonary: Clear to auscultation bilaterally. No wheezing, rales, or rhonchi. Abdomen: Still with mild diffuse tenderness, without clear rebound or guarding. Bowel sounds decreased. Extremities: Peripheral pulses intact. No clubbing or cyanosis. Neurologic: Movement somewhat limited by abdominal pain but no focal deficits identified. Psychiatric: Awake, alert, cooperative. Skin: No new rashes or lesions seen. ASSESSMENT AND PLAN: 1. Colon perforation. Patient with fever overnight. Some increased leukocytosis yesterday which is somewhat improved today. Abdominal pain approximately the same. Some decrease in blood counts but no obvious sign of bleeding. If blood counts continue to drop, may need repeat imaging. We will continue antibiotics with Zosyn and keep nothing per oral. Continue intravenous fluids. 2. Gastrointestinal bleed, status post scope. Blood counts were stable for several days but down again this morning. Repeat this afternoon approximately the same as this morning. No obvious signs or symptoms of bleeding, as the patient had previously. Monitor for now. If there is any significant drop, she will need transfused. 3. Chronic hypoxemic respiratory failure, stable on home 2 L. 4. Small pulmonary nodule, likely incidental finding. The patient will need a repeat CT in 3 to 6 months. 5. Chronic back pain, control reasonable. 6. Iron deficiency anemia. Start oral iron once the patient is able to take by mouth. 7. Hypokalemia, improved with repletion. 8. Hypomagnesemia, improved with repletion. 9. Hyperlipidemia. Home Crestor on hold until patient can take by mouth. 10. Hypertension. Currently holding home Coreg and hydrochlorothiazide. Blood pressure occasionally mildly elevated but acceptable, given age and status. Continue holding those medications.
[2018-12-02] MEDS: SODIUM CHLORIDE 0.9% INJ SCH (17:41)
[2018-12-02] MEDS: OFIRMEV 1000 MG/ISOTONIC SOLN 1,000 MG/100 ML BOTTLE IV PRN (20:03)
[2018-12-02 20:16] LABS: HEMATOCRIT 23.6 % (37.0-47.0); HEMOGLOBIN 7.4 g/dL (12.0-16.0)
[2018-12-03] MEDS: ZOSYN 3.375 GM in NS 50 ML IV SCH ×4 (01:10→18:11)
[2018-12-03] MEDS: DILAUDID IV PRN ×4 (01:36→21:31)
[2018-12-03] MEDS: MORPHINE IV PRN ×3 (02:44→09:14)
[2018-12-03] MEDS: ATROVENT NEB INH SCH ×6 (03:33→23:16)
[2018-12-03] MEDS: XOPENEX NEB INH SCH ×6 (03:34→23:16)
[2018-12-03] MEDS: NS 1,000 ML IV SCH ×2 (03:45→17:21)
[2018-12-03] MEDS: SODIUM CHLORIDE 0.9% INJ SCH ×2 (04:20→17:03)
[2018-12-03] MEDS: PROTONIX IV SCH ×2 (04:20→17:03)
[2018-12-03] MEDS: CLINIMIX E 4.25%-5% SOLUTION 1,000 ML IV SCH (04:20)
[2018-12-03] MEDS: ATIVAN IV PRN ×2 (04:24→10:57)
[2018-12-03] MEDS: HUMULIN R SUBQ SCH ×4 (06:31→20:06)
[2018-12-03 06:39] LABS: BASO# 0.01 X1000 (0.0-0.2); BASO% 0.1 % (0.0-0.8); EOS# 0.03 X1000 (0.0-0.7); EOS% 0.2 % (0.0-10.0); HEMOGLOBIN 7.8 g/dL (12.0-16.0); IMM GRAN# 0.05 X1000 (0.0-0.04); IMM GRAN% 0.3 % (0.0-0.5); MCH 23.9 PG (27-31); MCV 79.8 FL (81-99); MONO# 0.58 X1000 (0.11-0.59); MONO% 3.7 % (1.7-9.3); MPV 9.7 FL (7.4-10.4); NEUT# 13.99 X1000 (1.4-6.5); NEUT% 88.7 % (42.2-75.2); PLT 441 X1000 (130-400); RBC 3.26 XMIL (4.2-5.4); RDW 23.6 % (11.5-14.5); WBC 15.76 X1000 (4.8-10.8)
[2018-12-03 06:54] LABS: AGAP 10; BUN 21 mg/dL (8-22); CALCIUM 8.6 mg/dL (8.8-10.2); CHLORIDE 110 mmol/L (98-107); COSMO 284; CREATININE 0.5 mg/dL (0.5-0.9); ESTIMATED GFR > 60; GLUCOSE 130 mg/dL (70-104); POTASSIUM 3.6 mmol/L (3.5-5.1); SODIUM 140 mmol/L (136-145); TCO2 20 mmol/L (25-35)
--- NOTE | 2018-12-03 08:28 | GENERAL SURGERY PROGRESS NOTE ---
DATE: 12/03/2018 SUBJECTIVE: Patient seems to be doing about the same. She complains of pain. She has had fever to 101.2. Her white blood cell count yesterday did decrease down to 15, but her hematocrit did go down to 23. So, there may be some dilutional effect. There are no outward signs of bleeding. OBJECTIVE: Vital Signs: Patient is currently afebrile. Her vital signs are stable. She does have a low-grade tachycardia in the 1-teens. Blood pressure stable. General Exam: Elderly female, who looks stated age. HEENT: Normocephalic, atraumatic. Pupils equal, round, reactive to light. Mucous membranes moist. Oropharynx benign. Neck: Supple. Trachea midline. Cardiovascular: Regular rate and rhythm. Lungs: Grossly clear. Abdomen: Soft, tender to palpation in bilateral lower quadrants. No real significant change. Extremities: Moves all extremities. Neurologic: Grossly intact. Skin: No signs of jaundice. Vascular: All extremities perfused. LABORATORY: None this morning as of yet, but reviewed from yesterday. IMAGING: CT scan pending. ASSESSMENT AND PLAN: An 78-year-old female with colonic perforation. 1. Colonic perforation. At this time, she is doing about the same. I would recommend continued intravenous antibiotics. We will follow up with her computed tomography scan. She has had a low-grade fever and some leukocytosis, but she still wants to try to manage this nonoperatively. If her computed tomography scan shows any worsening or if she has a significant increase in her white blood cell count on complete blood count, may need to consider surgical intervention, but at this time we will continue antibiotics per patient's request. cc: Noah Chowdhury MD
--- NOTE | 2018-12-03 10:21 | Diag Imaging Result Doc PS360 ---
CT ABDOMEN/PELVIS W/O CONTRAST - 12/03/2018 INDICATION: colon perforation follow up COMPARISON: 11/30/2018 FINDINGS: There are small to moderate bilateral pleural effusions, slightly worse since prior. There are patchy infiltrates in the lung bases. There is mild interstitial pulmonary edema. Stable cardiomegaly. There is worsening diffuse body wall edema. Stable abdominal aortic aneurysm with significant rim calcification. There has been some decrease in the peritoneal free air. The gallbladder is distended, more so than previously. There is trace ascites. Gloria catheter in the urinary bladder. Uterus is absent. IMPRESSION: 1. Slight decrease in the peritoneal free air. 2. Stable ascites. 3. Worsening pleural effusions and body wall edema. 4. New severe distention of the gallbladder. This exam was performed using automated exposure control, adjustment of mA or kV according to patient size, and/or use of iterative reconstruction technique Electronically signed by Dallin Santiago 12/03/2018 10:18 AM
[2018-12-03 11:42] LABS: INR 1.22; PROTIME 15.6 Seconds (11.0-16.0)
[2018-12-03 12:10] LABS: MAGNESIUM 1.6 mg/dL (1.5-2.7); PHOSPHORUS 2.8 mg/dL (2.7-4.5)
[2018-12-03] MEDS ORDERED: QUELICIN (DOSE) ONE (12:22)
[2018-12-03] MEDS ORDERED: XYLOCAINE-MPF 2% ONE (12:22)
[2018-12-03] MEDS ORDERED: AMIDATE ONE (12:44)
[2018-12-03] MEDS ORDERED: NEO-SYNEPHRINE ONE (13:44)
--- NOTE | 2018-12-03 14:15 | GASTROENTEROLOGY PROGRESS NOTE ---
DATE: 12/03/2018 SUBJECTIVE: Ms. Lee is an 78-year-old female, resting in bed. She is currently NPO and is on Clinimix IV fluids for nutrition. She has been complaining of nausea, but denied any vomiting. She had 1 loose bowel movement last night, which was soft and brown. Complains of persistent tenderness in the lower abdomen. OBJECTIVE: Vital signs: Temperature is 99.6 degrees, pulse is 113, respirations are 31, blood pressure is 138/105, oxygen saturation is 100. She is on 2 L nasal cannula. Her weight is 110.7 pounds. BMI is 20.3 kg/m2. General: She is alert, oriented x3, and complaining of abdominal pain. HEENT: Pale conjunctivae. No icterus. PERRL. Neck: Supple. Lungs: Clear to auscultation in anterior and posterior rothman. Cardiac: Regular rate and rhythm. No murmurs, rubs, or gallops heard on auscultation. Abdomen: tender, distended with involuntary guarding. Hypoactive bowel sounds heard in all 4 quadrants. Extremities: No clubbing, cyanosis, positive edema. Pedal pulses 2+ present bilaterally. Neurological: Alert, oriented x3. LAB: WBC is 15.76, RBCs 3.26, hemoglobin 7.8, hematocrit 26.0, platelet count is 441,000. Sodium is 142, potassium is 3.6, chloride is 110, carbon dioxide is 20, anion gap 10. BUN is 21, creatinine is 0.5, glucose is 130, calcium is 8.6. Urinalysis on 11/28/2018 showed trace of protein. CT of the abdomen and pelvis without contrast showed slight decrease in the peritoneal free air, stable ascites, worsening pleural effusions and body wall edema. New severe distention of the gallbladder. IMPRESSION AND PLAN: GI Bleed Anemia Colon perforation Diverticulosis COPD Type II diabetes Leukocytosis Chronic back pain Ascites Anasarca Malnutrition PLAN: The patient is currently NPO, She is on Clinimix 75 mL/hour for her nutrition and dehydration. We will add lipids for her nutrition. We will continue Protonix IV twice a day for her GI bleed. Zofran PRN for nausea and vomiting. The patient is receiving IV fluids at 75 mL/hour for her dehydration. She is getting antibiotic Zosyn. Her white blood cell count has been high today of 15.76. For her leukocytosis she is receiving Zosyn. Her COPD, diabetes and back pain is managed by her PCP. The patient's abdomen is tender and distended; suspect peritonitis. We have discussed the situation with Dr Chowdhury who is on board. We have discussed in great detail about the management of GI bleeding and colon perforation including surgical options and family has agreed to proceed with surgical management with Dr Chowdhury. This plan was discussed with Dr. Davis. Please call us with any further questions or concerns. Dictated by FLORENTIN Lopes for Haroon Davis MD cc: Haroon Davis MD I have seen and examined the patient myself and I agree with the above plan of care. Discussed the above with the patient and family at bedside and all questions were answered. Please call us with any further questions. STONEY
--- NOTE | 2018-12-03 14:35 | GENERAL SURGERY PROGRESS NOTE ---
DATE: 12/03/[address] scan. To my read, it looks like she has got perforation down in her pelvis. Discussed with Dr. Santiago, he says it is a possibility. Clinically, she is not improved. She is still tachycardic. She still has leukocytosis. She has been febrile, still complaining of abdominal pain. I think at this point she has essentially failed nonoperative management the family still making ultimate decision, but I think we need to proceed with surgery with end colostomy and debridement and drainage. The risks, benefits, and alternatives were discussed. We will get consent for that and central line placement. The family agrees to procedure. cc: Noah Chowdhury MD
--- NOTE | 2018-12-03 14:53 | PROGRESS NOTE ---
DATE: 12/03/2018 INTERVAL HISTORY: Patient still with fevers overnight up to 101.2. Still with not insignificant abdominal tenderness. No new complaints. No other acute events. REVIEW OF SYSTEMS: Twelve point review of systems negative except as per interval history. LABS: WBC 15.7, hemoglobin 7.8, hematocrit 26.0, platelets 441,000. INR 1.2. Sodium 140, potassium 3.6, bicarb 20, BUN 21, creatinine 0.5, glucose 130. IMAGING: CT abdomen and pelvis with slight decrease in peritoneal free air, but still with fluid in the belly and worsened body wall edema as well as severe distention of the gallbladder. VITALS: T-max 101.2 degrees, pulse 116, respirations 25, blood pressure 155/81, O2 saturation 100% on 2 L by nasal cannula. PHYSICAL EXAMINATION: General: No acute distress. Vitals: As above. HEENT: Normocephalic, atraumatic. Moist mucous membranes. No cervical adenopathy. Cardiovascular: Still minimally tachycardic but regular. No murmurs noted. Pulmonary: Clear to auscultation bilaterally. No wheezing, rales, or rhonchi. Abdomen: Mild to moderate diffuse tenderness remains. Perhaps a little voluntary guarding but no rebound tenderness. Bowel sounds significantly decreased. Extremities: Peripheral pulses intact. No clubbing or cyanosis. Neurologic: No clear focal deficits, but patient globally weak. Psychiatric: Awake, alert, cooperative. Skin: No new rashes or lesions seen. ASSESSMENT AND PLAN: 1. Colon perforation. The patient with continued fevers. Significantly increased white count a couple days ago, which has trended down somewhat, but unchanged from yesterday at this point. Blood counts approximately stable. Repeat CT performed this morning by surgery and GI. Discussed the case with surgery and Dr. Chowdhury believes that surgery is likely the appropriate step at this point. Given patient's lack of improvement, I agree. He is going to talk to the family patient if they are minimal. We will likely take her to surgery later today. They will put in a central line at the time of surgery for better IV access. Monitor closely in ICU. 2. Gastrointestinal bleed. The patient is status post scope on admission. Blood counts were initially stable. Little bit of a downtrend yesterday, but no further downtrend today. No clear signs or symptoms of bleeding. Continue to monitor. Suspect she will need to be transfused a unit if she goes to surgery. 3. Chronic hypoxemic respiratory failure. Stable at home on 2 L. 4. Small pulmonary nodule. Repeat CT in 3 to 6 months, but likely incidental finding. 5. Currently holding home Coreg and hydrochlorothiazide. Acceptable control given age and clinical status. Continue monitoring. 6. Nutrition patient with remains n.p.o. and likely to remain so for quite some time. We will plan on starting total parenteral nutrition once we have central access. 7. Hypokalemia. Slight down trend but still okay. Continue to monitor and replete as necessary. 8. Hyperlipidemia. Holding home Crestor until the patient can take p.o. reliably.
[2018-12-03] MEDS ORDERED: ZEMURON ONE (15:00)
--- NOTE | 2018-12-03 15:10 | INFECTIOUS DISEASE CONSULT REP ---
DATE: 12/03/2018 CONCLUSION: Patient has peritonitis secondary to colonic perforation. I think she may well have pneumonia also. RECOMMENDATIONS: I agree with treating the patient with Zosyn. I have ordered a chest x-ray. The patient is going to be taken to surgery today for her bowel perforation. DISCUSSION: I was unable to get any information from the patient. The information I got was through the computer. She initially came in with a complaint of having bleeding from her rectum. She has had a CT scan of the abdomen and it showed free air, ascites, and gallbladder distention. Patient's CBC shows a white count of 15,760, hemoglobin 7.8, and platelet count 441,000. The creatinine is 0.5. GFR is greater than 60. Blood cultures are negative. PAST MEDICAL HISTORY: Positive for chronic obstructive pulmonary disease, hypertension, hyperlipidemia, diabetes mellitus, history of methicillin-resistant Staphylococcus aureus pneumonia, aortic stenosis, cachexia, chronic back pain, gastric ulcers, esophageal stricture, rectal prolapse, internal hemorrhoids, and anxiety disorder. PAST SURGICAL HISTORY: Positive for appendectomy, partial gastrectomy, hysterectomy, esophagogastroduodenoscopy, low back surgery, repair of rectal prolapse. FAMILY HISTORY: Positive for coronary artery disease. DRUG ALLERGIES: None. SOCIAL HISTORY: Patient lives at home with family. She smokes cigarettes but quit approximately 5 months ago. She does not drink alcoholic beverages or use illicit drugs. HOME MEDICATIONS: Include the following: Albuterol inhaler, Elavil, aspirin, Symbicort, carvedilol, clonazepam, gabapentin, hydrochlorothiazide,hydrocodone, hydrocodone, Protonix, Daliresp, and Crestor. PHYSICAL EXAMINATION: Vital Signs: Temperature 100 degrees, pulse 111, respirations 26, blood pressure 130/80. Patient weighs 111 pounds. General: This is an elderly, cachectic-appearing female. She is lethargic, but she does not seem to be in any acute distress. Head/Eyes/Ears/Nose/Throat: She appeared to hear my spoken words. I could not test her vision. I did not see any white coating on her tongue. Neck: No stiffness. Lungs: Bilateral rhonchi. Cardiovascular: Heart rate was regular and rapid. Abdomen: Distended and tender. I did not hear any bowel sounds. Neurologic: Patient was lethargic. She did move her extremities to request. There was no tremor. Integument: No rash noted. Thorax: Increased AP diameter of chest. Thank you for the consult. cc: Gregory Raymond MD [facility]
[2018-12-03] MEDS ORDERED: D10W 1,000 ML IV SCH (15:45)
--- NOTE | 2018-12-03 16:23 | Diag Imaging Result Doc PS360 ---
CHEST-PORTABLE - 12/03/2018 INDICATION: Verify NG placement COMPARISON: 11/28/2018 FINDINGS: There is a nasogastric tube in good position fully in the stomach. There are some hazy infiltrates in the lung bases. IMPRESSION: Nasogastric tube in the stomach. Electronically signed by Dallin Santiago 12/03/2018 4:21 PM
[2018-12-03 16:42] LABS: ALLEN TEST YES; BE -6.7 mmoll (-3.0-3.0); BLOOD TYPE ARTERIAL; HCO3-(ACT) 19.6 mmoll (20.0-26.0); METHB 1.6 % (0.0-1.5); MODALITY VENTILATOR; O2(CT) 15.2 mL/dL (15.0-23.0); O2HB 90.6 % (95.0-99.0); PCO2(98.6) 39 mmHg (35-45); PO2(98.6) 66 mmHg (60-100); SAMPLE BLOOD; SAO2 93.4 % (95.0-100.0); SRATE 12 BPM; THB 11.9 g/dL (11.5-17.4); TVOL 450 mL
[2018-12-03] MEDS: DIPRIVAN 1% 1,000 MG/100 ML BOTTLE IV SCH ×2 (16:55→23:31)
[2018-12-03] MEDS ORDERED: LIPOSYN 20% 500 ML IV SCH (17:00)
--- NOTE | 2018-12-03 17:37 | Diag Imaging Result Doc PS360 ---
CHEST-PORTABLE - 12/03/2018 INDICATION: ET tube, central line placement COMPARISON: 4:12 PM FINDINGS: There is an endotracheal tube in good position at T5. Nasogastric tube in the stomach. There is a right central line in good position at the mid SVC. Stable patchy nonspecific bibasilar infiltrates or atelectasis. There are probably trace pleural effusions. Heart size is top normal. IMPRESSION: No complications. Electronically signed by Dallin Santiago 12/03/2018 5:35 PM
[2018-12-03] MEDS: TPN ELECTROLYTES 20 ML, MAGNESIUM SULFATE 5 MEQ, POTASSIUM CHLORIDE 10 MEQ, POTASSIUM P... IV SCH ×8 (17:40)
--- NOTE | 2018-12-03 17:40 | OPERATIVE NOTE ---
PROCEDURE DATE: 12/03/2018 PREOPERATIVE DIAGNOSIS: Perforated colon. POSTOPERATIVE DIAGNOSES: 1. Perforated colon. 2. Enterocolonic fistula. PROCEDURE: 1. Ultrasound-guided central line placement via the right internal jugular vein. 2. Exploratory laparotomy. 3. Open sigmoid resection with end colostomy (Ellis's procedure). 4. Takedown of enterocolonic fistula with small bowel resection with stapled [id number] anastomosis. SURGEON: Noah Chowdhury MD SAUSAGE STRINGER: None. ANESTHESIA: General endotracheal. INTRAOPERATIVE FINDINGS: Ultrasound showed good caliber right internal jugular vein. The perforation itself was down the rectosigmoid junction. It was a large perforation, longitudinal tear with small bowel intimately attached and was fistulizing. COMPLICATIONS: None at time of dictation. ESTIMATED BLOOD LOSS: 100 mL. SPECIMEN REMOVED: 1. Colon. 2. Small bowel. DRAINS: 19-German Eder drain x2. BRIEF HISTORY: This is an 78-year-old female who had a colonic perforation. We tried to manage her nonoperatively per the patient's wishes. She had a continued decline, felt that she needed surgery. The risks, benefits, and alternatives were discussed with the family. All questions answered. DESCRIPTION OF PROCEDURE: After informed consent was obtained, patient brought to the operative theatre, transferred to the operating table, and placed in supine position. General endotracheal anesthesia was then performed without complication. A formal time-out was then performed confirming patient, date, procedure. All in agreement. At that time, attention was given to the neck. We prepped and draped the right neck in a sterile fashion. Using the ultrasound I was able to identify the right internal jugular vein. Under local anesthetic, I was able to cannulate the right internal jugular vein and pass a wire using the Seldinger technique. I was able to serially dilate up the tract to place a central line into the venous system. We secured it in place. We connected to a CVP monitor and it showed a CVP waveform. We placed a sterile dressing. The patient tolerated that part well. We then prepped and draped the abdomen in sterile fashion. We repeated the time-out. We then made a standard midline incision. Upon entering the abdomen, we encountered a significant amount of stool down in her rectum and down in her pelvis. We irrigated this all out. There was a dense adhesion from the small bowel down to the rectosigmoid junction. It took some dissection bluntly to get it off. 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 We found a tear in the sigmoid colon at the rectosigmoid junction in the area that was concern for the tear on colonoscopy. It was a large area. The tissue was very friable. At this point, I would like to do a Ellis's procedure with end-colostomy. We made a window in the base of the sigmoid colon in the mesentery, fired a stapler across it. We then used the LigaSure to come down on the mesentery all the way down distal to the perforation. We used a TA stapler across the distal aspect of the rectum. One part of the suture line did not hold in the TA, but we were able to remove the specimen. Given the tear secondary to very inflamed tissue, I did not think there was any better tissue more distally, so I did not think a further resection would be beneficial. I did over-sew the perforated area from the staple line with Vicryl running stitch in imbricated silks, but it is still very inflamed tissue. Given this, I elected to leave 2 drains down in the pelvis in case this area fails to heal. We continued to irrigate out, mobilized the sigmoid colon further to make it amenable to an ostomy. We then reexamined the small bowel. The enterocutaneous fistula needed to be resected. This is likely in the distal jejunum proximal ileum. We used a KEO stapler to come across the segment on both ends. We then did a [id number] staple anastomosis with good results, over-sewing the mesenteric defect and placing a stitch in the crotch of the staple line. We then placed this back into the abdomen gently. We brought up our ostomy through a lateral aspect of the rectus sheath on the left side just at the level of the umbilicus, made it 2 fingerbreadths in size through the fascia, brought up the sigmoid colon with a Jv in the correct orientation. We then irrigated out the abdomen. I could not confirm where the NG tube was as she had a lot of scar tissue of her upper aspect of her abdomen. We irrigated out the abdomen and closed the fascia with a running loop PDS started on either side. We closed the skin with thu. I then matured the ostomy in a standard fashion. We placed a sterile dressing ostomy appliance and secured the drains to the skin. The patient remains critical. Will be transferred to the ICU. cc: Noah Chowdhury MD
[2018-12-04] MEDS: HUMULIN R SUBQ SCH ×6 (00:41→20:30)
[2018-12-04] MEDS: ZOSYN 3.375 GM in NS 50 ML IV SCH ×4 (00:42→17:52)
[2018-12-04] MEDS: MORPHINE IV PRN ×2 (01:19→10:14)
[2018-12-04] MEDS: ATROVENT NEB INH SCH ×6 (03:33→23:26)
[2018-12-04] MEDS: XOPENEX NEB INH SCH ×6 (03:33→23:26)
[2018-12-04 04:45] LABS: ALLEN TEST YES; BE -4.8 mmoll (-3.0-3.0); BLOOD TYPE ARTERIAL; HCO3-(ACT) 21.2 mmoll (20.0-26.0); METHB 1.7 % (0.0-1.5); O2(CT) 13.4 mL/dL (15.0-23.0); O2HB 95.7 % (95.0-99.0); PCO2(98.6) 26 mmHg (35-45); PO2(98.6) 123 mmHg (60-100); SAMPLE BLOOD; SAO2 98.5 % (95.0-100.0); SRATE 12 BPM; THB 9.8 g/dL (11.5-17.4); TVOL 450 mL; pH(98.6) 7.45 (7.35-7.45)
[2018-12-04 04:46] LABS: MODALITY VENTILATOR
[2018-12-04 05:23] LABS: BASO# 0.01 X1000 (0.0-0.2); BASO% 0.1 % (0.0-0.8); EOS# 0.01 X1000 (0.0-0.7); EOS% 0.1 % (0.0-10.0); HEMATOCRIT 32.4 % (37.0-47.0); HEMOGLOBIN 10.7 g/dL (12.0-16.0); IMM GRAN# 0.06 X1000 (0.0-0.04); IMM GRAN% 0.4 % (0.0-0.5); LYMPH# 1.34 X1000 (1.2-3.4); LYMPH% 8.6 % (20.5-51.1); MCH 25.8 PG (27-31); MCV 78.3 FL (81-99); MONO# 0.92 X1000 (0.11-0.59); MONO% 5.9 % (1.7-9.3); MPV 10.3 FL (7.4-10.4); NEUT% 84.9 % (42.2-75.2); PLT 350 X1000 (130-400); RBC 4.14 XMIL (4.2-5.4); RDW 21.9 % (11.5-14.5); WBC 15.54 X1000 (4.8-10.8)
[2018-12-04 05:42] LABS: AGAP 10; BUN 23 mg/dL (8-22); CALCIUM 7.6 mg/dL (8.8-10.2); CHLORIDE 110 mmol/L (98-107); CHOLESTEROL 60 mg/dL (0-200); COSMO 284; CREATININE 0.6 mg/dL (0.5-0.9); ESTIMATED GFR > 60; GLUCOSE 224 mg/dL (70-104); GOT 39 U/L (10-30); MAGNESIUM 1.6 mg/dL (1.5-2.7); PHOSPHORUS 2.6 mg/dL (2.7-4.5); POTASSIUM 3.7 mmol/L (3.5-5.1); SODIUM 137 mmol/L (136-145); TCO2 17 mmol/L (25-35); TRIGLYCERIDES 142 mg/dL (35-135)
[2018-12-04 06:03] LABS: PREALBUMIN 6.8 mg/dL (20-40)
--- NOTE | 2018-12-04 06:05 | GENERAL SURGERY PROGRESS NOTE ---
DATE: 12/04/2018 SUBJECTIVE: Patient is still on the ventilator. Nursing staff reports she has been okay through the night. OBJECTIVE: Vital Signs: Patient is currently afebrile. Pulse is in the 1-teens. Respiratory rate is still elevated in the 30s, blood pressure 119/62. General: Somewhat sedated on the ventilator. Cardiovascular: Tachycardic. Lungs: Referred airway noises. Abdomen: Midline incision with dressing intact. Ostomy appears viable, but edematous, mostly weeping at this point. ISREAL drain is in place with serosanguineous output. LABORATORY: White blood cell count is 15 which is stable, hematocrit 32, platelet count 350,000. ABG reviewed. Her base deficit is improving with continued resuscitation. Overall labs look better. ASSESSMENT AND PLAN: An 78-year-old female postoperative day #1 from exploratory laparotomy, open sigmoid resection with end colostomy and small-bowel resection. Postoperative state. At this time continue current treatment and supportive care. Patient's comorbidities make her slightly slow to recover from this procedure. Will monitor her ostomy. Will keep her NG tube to low wall intermittent suction. Will keep her on antibiotics. Infectious Disease is following her. Will defer to Infectious Disease about potentially broadening the coverage or even adding potential gram-positive coverage. She did have significant intra- abdominal contamination. At this point will continue to monitor. cc: Noah Chowdhury MD
[2018-12-04] MEDS: HEPARIN SUBQ SCH ×3 (06:32→21:26)
[2018-12-04] MEDS: PROTONIX IV SCH ×2 (06:32→17:29)
--- NOTE | 2018-12-04 06:32 | Diag Imaging Result Doc PS360 ---
EXAM: CHEST-PORTABLE HISTORY: ET tube placement TECHNIQUE: Chest single view COMPARISON: 12/03/2018 FINDINGS: Endotracheal tube in good position. No change in the right jugular line or nasogastric tube. The lungs are well expanded. No cardiomegaly. Infiltrates in the left base remain. IMPRESSION: Endotracheal tube in good position. Electronically signed by Kofi Nolasco 12/04/2018 6:29 AM
[2018-12-04] MEDS: NS 1,000 ML IV SCH ×2 (06:33→10:19)
[2018-12-04] MEDS: DIPRIVAN 1% 1,000 MG/100 ML BOTTLE IV SCH ×3 (06:46→21:26)
--- NOTE | 2018-12-04 09:24 | INFECTIOUS DISEASE PROGRESS NO ---
DATE: 12/04/2018 PRESENT ILLNESS: The patient has peritonitis secondary to colonic perforation. She also has pneumonia. MEDICATIONS: The patient is on Zosyn. PHYSICAL EXAMINATION: Vital Signs: Temperature is 100 degrees, pulse 120, respirations 29, blood pressure 129/85. General: This is a ill-appearing elderly female. She is intubated and sedated. Head/eyes/ears/nose/throat: The patient has an oral tracheal and nasogastric tube down. There is no drainage from the nose or ears. Neck: The patient has a right-sided internal jugular venous catheter in place. Lungs: Clear to auscultation. Cardiovascular: Heart rate is regular. Abdomen: Soft. There is a dressing over the incision. The patient has [address] in the abdomen also. Neurologic: The patient is obtunded. She did not she did not respond to verbal stimuli. There is no tremor. ASSESSMENT AND PLAN: The patient has peritonitis secondary to colonic perforation. She also has pneumonia. Yesterday she underwent surgery consisting of sigmoid resection and creation of a colostomy and also 2 drains were put in the abdomen. LAB AND X-RAY STUDIES: I did not see a radiographic study for today. The patient's CBC showed a white count of 15,540, hemoglobin 10.7, platelet count 350,000. Patient's blood gases show a pH of 7.45 a PO2 of 123, pCO2 of 26, creatinine 0.6. GFR is greater than 60. Blood cultures are negative. The patient had yesterday a sigmoid resection and creation of a colostomy. ASSESSMENT/PLAN: The patient has pneumonia and peritonitis. My plan is to continue with Zosyn. This is day #4 of it. COMORBIDITIES: She is elderly. She also has chronic obstructive pulmonary disease and diabetes mellitus. cc: Gregory Raymond MD
--- NOTE | 2018-12-04 13:38 | GASTROENTEROLOGY PROGRESS NOTE ---
DATE: 12/04/2018 SUBJECTIVE: Ms. Lee 78 year old female lying in bed. She is on a ventilator. Nursing staff reports that she has been doing okay. Her abdomen is distended. She has midline incision and an ostomy on the left abdomen. Unable to assess patient. OBJECTIVE: Vital signs: Temperature 98.4 degrees, pulse is 114, respiration is 21, blood pressure is 132/64, oxygen saturation is 93%. She is on the ventilator. Patient weight is 124.5 pounds. BMI is 22.9 kg/m2. General: The patient is on ventilator, unable to assess. HEENT: Pale conjunctivae. No icterus. PERRL. Lungs: Clear to auscultation. Cardiovascular: The patient is tachycardic. Regular rate and rhythm. Abdomen: Midline incision with dressing intact. Ostomy on the left abdominal. Stoma appears viable. ISREAL drains are in place with serosanguineous output. Extremities: Generalized edema in the upper extremities and lower extremities. 1+ pedal pulses present bilaterally. No clubbing or cyanosis noted. Neurologic: Patient is sedated and unable to assess. LABORATORY DATA: WBCs 15.54, RBC 4.14, hemoglobin 10.7, hematocrit is 32.4, platelet count is 350,000. Blood gases: pH is 7.45, pCO2 is 26, PO2 is 123, HC03 is 21.2. Sodium 137, potassium 3.7, chloride is 110, carbon dioxide is 17, anion gap is 10. BUN is 23, creatinine 0.6, calcium 7.6, phosphorus was 2.6, magnesium is 1.6. Chest x-ray shows endotracheal tube in good position. Abdomen and pelvis CT showed slight decrease in the peritoneal free air, stable ascites, worsening pleural effusions, and body wall edema, new severe distention of the gallbladder. IMPRESSION AND PLAN: 1. Gastrointestinal bleed. 2. Anemia. 3. Colon perforation. 4. Diverticulosis. 5. Chronic obstructive pulmonary disease. 6. Type 2 diabetes. 7. Leukocytosis. 8. Chronic back pain. 9. Ascites. 10. Anasarca. 11. Malnutrition. PLAN: The patient is NPO. We have started her on TPN for nutrition. She had the surgery done yesterday for her colon perforation and has an ostomy in the left quadrant of the abdomen. Her abdomen is still distended, has midline incisions, dressing dry and intact. She is receiving antibiotic Zosyn for Leukocytosis.. We will continue with Protonix 40 mg IV twice a day for her GI bleed, antiemetics Zofran for nausea and vomiting, continue to monitor her CBC and BMP, and follow the plan of care per surgeon and the primary care team. This plan was discussed with Dr. Park. Please call us for any further questions or concerns. Dictated by FLORENTIN Lopes for Jason Park MD cc: Jason Park MD [facility]
--- NOTE | 2018-12-04 14:36 | PULMONOLOGY CONSULTATION ---
DATE: 12/04/2018 REASON FOR CONSULTATION: Respiratory failure. HISTORY OF PRESENT ILLNESS: Ms Lee is an 78-year-old white female with severe COPD, chronic hypoxemic respiratory failure, who presented to the emergency room 11/28/2018 with lower GI bleeding. The patient underwent a colonoscopy on 11/30/2018. The patient was noted to have stricture and diverticulosis in the rectosigmoid region. During the endoscopy, the endoscopist noticed a change in resistant and felt that a perforation had occurred. Surgery was notified. The patient underwent CT scan of the abdomen and pelvis, which confirmed the perforation. The patient and family along with Surgery decided on a conservative approach to include antibiotics and observation unless she has clinical deterioration. CT scan of the abdomen and pelvis 12/03/2018 revealed a fluid collection with air-fluid level with possible perforation in the pelvis. The patient underwent repair of her perforated colon on 12/03/2018. She underwent a sigmoid resection with end colostomy. 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 The patient is now on mechanical ventilation in the ICU. She is requiring no vasopressors. OBJECTIVE: Vital Signs: The patient afebrile for the last 24 hours. Blood pressure 132/64, heart rate 114, respiratory rate 21, oxygen saturation 93 per on 50% FiO2. HEENT: Pupils are equal and reactive. Oropharynx is clear. Neck: Supple. Chest: Reveals prolonged expiratory phase. Cardiac: S1, S2. Abdomen: Mildly distended. Colostomy appears pink and viable. Extremities: Slightly cool to the touch. LABORATORY DATA: Arterial blood gas reveals a pH 7.45, pCO2 of 26, PO2 of 123 on 50% FiO2. White blood count 15.54, hemoglobin 10.7, platelet count 350,000. Pre-albumin 6.8. Albumin 6 days ago 3.0. IMPRESSION: An 78-year-old with: 1. Acute hypoxemic respiratory failure. 2. Chronic hypoxemic respiratory failure. 3. Severe chronic obstructive pulmonary disease. 4. Lower gastrointestinal bleeding. 5. Status post colonic perforation with repair. 6. Protein calorie malnutrition. 7. Bibasilar pleural effusions. 8. Peritonitis. 9. Diabetes mellitus. RECOMMENDATIONS: 1. Continue full ventilatory support. The patient's pulmonary status was marginal at her last hospitalization and she did require intubation during that admission. She will need to have significant improvement in her abdominal exam and diuresis of her effusions prior to extubation. Anticipate a several-day ventilator stay. 2. Routine bronchodilators. 3. Continue gastric acid suppression. 4. Agree with total parenteral nutrition. 5. Antibiotics per Infectious Disease. 6. Overall prognosis is guarded. cc: Daniel Rodriguez MD MTDD
--- NOTE | 2018-12-04 15:18 | PROGRESS NOTE ---
DATE: 12/04/2018 INTERVAL HISTORY: The patient is status post surgery with a partial bowel resection yesterday. The patient was noted to have a significant perforation with fecal material in the pelvis at the time of surgery. She has remained on the ventilator since surgery. No fevers in the last 24 hours. No other acute events. REVIEW OF SYSTEMS: Unable to obtain secondary to the patient's mental status. LABS: WBC 15.5, hemoglobin 10.7, hematocrit 32.4, and platelets 350. ABG with pH of 7.45, pCO2 26, and pO2 123 on the ventilator. Basic metabolic panel unremarkable aside from glucose of 160 to 210, magnesium 1.6, and phosphorus 2.6. VITAL SIGNS: T-max 99.6, pulse 102, respirations 20, blood pressure 120/58, and O2 saturation 97% on the ventilator. PHYSICAL EXAMINATION: General: No acute distress. Intubated and sedated. Vitals: As above. HEENT: Normocephalic, atraumatic. ET tube in place. Cardiovascular: Mildly tachycardic but regular. No murmurs noted. Pulmonary: A few scattered rhonchi but largely clear to auscultation bilaterally. Abdomen: Heavily bandaged. Bowel sounds are essentially absent. Extremities: Peripheral pulses intact. No clubbing or cyanosis. Neurological: Exam limited by mental status. Pupils are equal, round, and reactive to light. No clear focal deficits. Psychiatric: Sedated. Skin: No new lesions noted. ASSESSMENT AND PLAN: 1. Colon perforation. Patient is status post resection as above now with an ostomy in the left lower quadrant. Intubated since surgery. On antibiotics with Zosyn which we will continue. As the patient may be n.p.o. for quite some time we have starting total parenteral nutrition. Monitor closely. 2. Chronic hypoxic respiratory failure. Prior to surgery the patient was stable on her home 2 L. Not requiring a whole lot of help from the ventilator but her tenuous baseline respiratory status may make her slow to come off the vent. 3. Anemia, gastrointestinal bleed. The patient initially presented with a gastrointestinal bleed. Blood counts were trending down very slowly but she had not had active bleeding in several days. Transfused yesterday along with surgery with good increase in hemoglobin and hematocrit. Continue to monitor blood counts. 4. Electrolyte issues, hypokalemia and hypomagnesemia. Potassium and magnesium are both reasonable. Phosphorus is minimally low but should be taken care of by the total parenteral nutrition. We will monitor electrolytes. 5. Diabetes mellitus. Pretty good control on the current regimen. Continue to monitor. 6. Hypertension. Hold home antihypertensives currently. Blood pressure is essentially normal. Continue holding those medications and monitor. 7. Hyperlipidemia. We will start back on a statin once she is able to take p.o.
[2018-12-04] MEDS: TPN ELECTROLYTES 20 ML, MAGNESIUM SULFATE 5 MEQ, POTASSIUM CHLORIDE 10 MEQ, POTASSIUM P... IV SCH ×8 (17:29)
[2018-12-04] MEDS: SODIUM CHLORIDE 0.9% INJ SCH (17:29)
[2018-12-05] MEDS: HUMULIN R SUBQ SCH ×6 (00:19→21:24)
[2018-12-05] MEDS: ZOSYN 3.375 GM in NS 50 ML IV SCH ×4 (00:29→18:18)
[2018-12-05] MEDS: ATROVENT NEB INH SCH ×6 (03:32→22:54)
[2018-12-05] MEDS: XOPENEX NEB INH SCH ×6 (03:32→22:54)
[2018-12-05 04:21] LABS: ALLEN TEST YES; BE -2.8 mmoll (-3.0-3.0); BLOOD TYPE ARTERIAL; HCO3-(ACT) 22.7 mmoll (20.0-26.0); METHB 1.5 % (0.0-1.5); O2(CT) 12.8 mL/dL (15.0-23.0); O2HB 96.2 % (95.0-99.0); PCO2(98.6) 25 mmHg (35-45); PO2(98.6) 106 mmHg (60-100); SAMPLE BLOOD; SAO2 98.8 % (95.0-100.0); SRATE 12 BPM; THB 9.3 g/dL (11.5-17.4); TVOL 600 mL
[2018-12-05 04:22] LABS: MODALITY VENTILATOR
[2018-12-05] MEDS: PROTONIX IV SCH ×2 (05:25→16:38)
[2018-12-05] MEDS: HEPARIN SUBQ SCH ×3 (05:25→22:32)
[2018-12-05] MEDS: DIPRIVAN 1% 1,000 MG/100 ML BOTTLE IV SCH ×3 (06:11→17:35)
[2018-12-05 06:24] LABS: BASO# 0.03 X1000 (0.0-0.2); BASO% 0.2 % (0.0-0.8); EOS# 0.03 X1000 (0.0-0.7); EOS% 0.2 % (0.0-10.0); HEMOGLOBIN 8.3 g/dL (12.0-16.0); IMM GRAN% 0.5 % (0.0-0.5); LYMPH# 1.75 X1000 (1.2-3.4); LYMPH% 9.2 % (20.5-51.1); MCH 25.3 PG (27-31); MCHC 31.9 g/dL (33-37); MCV 79.3 FL (81-99); MONO# 1.44 X1000 (0.11-0.59); MONO% 7.6 % (1.7-9.3); MPV 10.3 FL (7.4-10.4); NEUT# 15.65 X1000 (1.4-6.5); NEUT% 82.3 % (42.2-75.2); PLT 292 X1000 (130-400); RBC 3.28 XMIL (4.2-5.4); RDW 22.5 % (11.5-14.5)
[2018-12-05 06:45] LABS: MAGNESIUM 1.7 mg/dL (1.5-2.7); PHOSPHORUS 2.1 mg/dL (2.7-4.5)
[2018-12-05 06:48] LABS: BANDS 2 % (0-1); BASO 2 % (0-1); LYMPHS 12 % (21-51); SEGS 82 % (42-75)
[2018-12-05 06:49] LABS: ANISOCYTOSIS 1+; HYPOCHROM 1+
[2018-12-05 06:53] LABS: AGAP 8; ALB/GLOB RATIO 0.5; ALBUMIN 1.8 g/dL (3.5-5.0); ALKALINE PHOSPHATASE 132 U/L (32-104); BUN 20 mg/dL (8-22); CALCIUM 7.6 mg/dL (8.8-10.2); CHLORIDE 110 mmol/L (98-107); COSMO 280; CREATININE 0.5 mg/dL (0.5-0.9); ESTIMATED GFR > 60; GLUCOSE 171 mg/dL (70-104); GOT 133 U/L (10-30); GPT 41 U/L (10-36); POTASSIUM 3.3 mmol/L (3.5-5.1); SODIUM 137 mmol/L (136-145); TCO2 19 mmol/L (25-35); TOTAL BILIRUBIN 0.71 mg/dL (0.20-1.00); TOTAL PROTEIN 5.6 g/dL (6.3-8.3)
[2018-12-05] MEDS: NS 1,000 ML IV SCH (07:23)
--- NOTE | 2018-12-05 07:47 | Diag Imaging Result Doc PS360 ---
EXAM: CHEST-PORTABLE INDICATION: ET tube placement TECHNIQUE: One view COMPARISON: 12/04/2018 FINDINGS: Support tubes and lines are in stable positions. Bibasilar mild infiltrate versus atelectasis is approximately stable. No new consolidation is identified. Cardiac silhouette is stable. IMPRESSION: Essentially stable chest. Electronically signed by Tyron Harper 12/05/2018 7:45 AM
[2018-12-05] MEDS: POTASSIUM CHLORIDE 20 MEQ/SWI 20 MEQ/100 ML IVPB IV SCH ×2 (09:36→10:47)
[2018-12-05] MEDS: MORPHINE IV PRN ×2 (09:54→14:51)
[2018-12-05] MEDS ORDERED: LASIX IV ONE (10:03)
[2018-12-05] MEDS ORDERED: SODIUM BICARBONATE 8.4% 150 MEQ in D5W 1,000 ML IV SCH (10:15)
[2018-12-05] MEDS: ALBUMIN 25% IV SCH ×3 (10:35→22:33)
--- NOTE | 2018-12-05 10:58 | PROGRESS NOTE ---
DATE: 12/05/2018 SUBJECTIVE: Ms. Hortensia Lee is an 78-year-old white female, who remains intubated in the ICU. She is a patient of Dr. Chowdhury. She underwent a diverting end colostomy, small bowel resection with Ellis's per Dr. Chowdhury 12/04/2018. She had an iatrogenic injury to her rectum. Her end ileostomy was viable. No output. She had Eder drains in her pelvis with no significant drainage. OBJECTIVE: Her heart rate is 98, blood pressure 168/70, O2 saturation 97%. She has a low-grade temperature 99.1 degrees. She is on IV Zosyn. She is getting TPN for nutrition. Her white blood cell count has gone from 15 to 19, hematocrit is 26%. Her BUN and creatinine are 20 and 0.5. Liver function tests were mildly elevated. PLAN: Continue supportive care. We will leave her Eder drains in the pelvis at this time. She will be continued to get nutrition by IV. cc: Selena Duval MD
[2018-12-05] MEDS: DILAUDID IV PRN ×2 (13:23→18:02)
[2018-12-05] MEDS: LASIX IV SCH ×2 (13:23→19:58)
[2018-12-05 13:28] LABS: HEMATOCRIT 25.7 % (37.0-47.0); HEMOGLOBIN 8.2 g/dL (12.0-16.0)
--- NOTE | 2018-12-05 13:33 | PROGRESS NOTE ---
DATE: 12/05/2018 INTERVAL HISTORY: Patient remains intubated and sedated. No fever since the . No acute events overnight. Starting to have a little bit of output from her ostomy. REVIEW OF SYSTEMS: Unable to obtain secondary to patient's mental status. LABS: WBC 19, hemoglobin 8.3, hematocrit 26.0, platelets 292. ABG with pH 7.5, pCO2 25, PO2 106 on ventilator. Sodium 137, potassium 3.3, bicarbonate 19. BUN 20, creatinine 0.5, glucose 173. VITALS: T-max 99.4 degrees, pulse 93, respirations 22, blood pressure 162/69, O2 saturation 100% on ventilator. PHYSICAL EXAMINATION: General: No acute distress. Vitals: As above. HEENT: Normocephalic, atraumatic. ET tube remains in place. Cardiovascular: Regular rate and rhythm. Pulmonary: Largely clear to auscultation bilaterally. Abdomen: Remains bandaged. Surgical drain in place. Ostomy noted in left lower quadrant with some scant output. Bowel sounds remain essentially absent. Extremities: Peripheral pulses intact. No clubbing or cyanosis. Neurologic: Pupils equal, round, reactive to light. Reflexes intact. No clear focal deficits. Psychiatric: Sedated. Skin: No new lesions noted. ASSESSMENT AND PLAN: 1. Perforation, peritonitis. The patient is status post resection on 12/[address] Chowdhury with diverting ostomy. Remains on antibiotics with Zosyn. Still with drains. Continue monitoring and await further recommendations by Surgery based on how she does. 2. Chronic hypoxic respiratory failure. Prior to surgery, patient was stable on her home 2 liters. Has remained intubated since surgery. Not requiring a whole lot of support from the ventilator. We will see how she does. Pulmonary following. 3. Anemia, gastrointestinal bleed. The patient initially presented with gastrointestinal bleed. Stabilized afterwards, but had another drop after surgery. Transfused 2 days ago with good increase. Blood counts down again some today. Will recheck them this afternoon to see if she may need further transfusion. 4. Fluids/electrolytes/nutrition: The patient now on total parenteral nutrition. Planning on continuing that until the patient able to take oral. Potassium low again today. Will further replete. Magnesium okay. Phosphorus slightly low, but will likely be repleted by total parenteral nutrition. If remains low tomorrow, we will consider extra repletion. 5. Diabetes mellitus. Control reasonable. Monitor. 6. Hypertension. Patient currently on nothing by mouth, so we cannot give any of her home medications, but blood pressure only moderately elevated. If it becomes significantly elevated, then we will consider intravenous antihypertensives. 7. Hyperlipidemia. We will plan on restarting statin once she is able to take oral.
--- NOTE | 2018-12-05 15:21 | PULMONOLOGY PROGRESS NOTE ---
DATE: 12/05/2018 SUBJECTIVE: The patient is sedated. She remains on mechanical ventilation. She is requiring no vasopressors. OBJECTIVE: Vital Signs: The patient has been afebrile for the last 24 hours. Blood pressure 166/67, heart rate 93, respiratory rate 12, oxygen saturations 100 percent. HEENT: Pupils are equal and reactive. Oropharynx is clear. Neck: Neck is supple. Chest: Reveals prolonged expiratory phase with decreased breath sounds in the bases. Cardiac exam: S1, S2. Abdomen: Abdomen is soft. Ostomy appears to be viable. Extremities: Reveal trace to 1+ peripheral edema. LABORATORIES/X-RAYS: Chest x-ray reveals stable bibasilar infiltrates. White blood count 19.0, hemoglobin 8.3, platelet count 292,000. Arterial blood gas reveals pH 7.50, pCO2 of 25, PO2 of 106. Sodium 137, potassium 3.3, chloride 110, bicarbonate 19. BUN 20, creatinine 0.5, phosphorus 2.1, magnesium 1.7. IMPRESSION: An 78-year-old with: 1. Acute hypoxemic respiratory failure. 2. Chronic hypoxemic respiratory failure. 3. Severe chronic obstructive pulmonary disease. 4. Status post surgical repair of an endoscopy-related colonic perforation. 5. Protein calorie malnutrition. 6. Bibasilar pleural effusions. 7. Peritonitis. 8. Diabetes. RECOMMENDATIONS: 1. Continue full ventilatory support. 2. We will discontinue sodium chloride. The patient has developed a hyperchloremic metabolic acidosis, even though she is alkalotic. 3. Continue gastric acid suppression. 4. Continue TPN for nutrition. 5. Antibiotics per Infectious Disease. 6. We will begin weaning when she has clinical and radiographic improvement. TIME SPENT: Time spent in critical care management 35 minutes. cc: Daniel Rodriguez MD
[2018-12-05] MEDS: POTASSIUM CHLORIDE IV SCH ×9 (17:21)
[2018-12-05] MEDS: MAGNESIUM SULFATE IV SCH ×9 (17:21)
[2018-12-05] MEDS: TPN ELECTROLYTES IV SCH ×9 (17:21)
[2018-12-05] MEDS: [UNRECOGNIZED DRUG - OTHER] IV SCH ×9 (17:21)
--- NOTE | 2018-12-05 19:44 | GASTROENTEROLOGY PROGRESS NOTE ---
DATE: 12/05/2018 SUBJECTIVE: Patient currently intubated and vented. She had ostomy output last night per the nursing staff amounting to 40 mL. She is currently supposed to be on mechanical ventilation today and tomorrow. They will likely do a weaning trial per the Pulmonary team. She had good success with a sedation holiday today, per the nursing staff. No more bleeding from the rectum for now. Her NG tube is putting out some bilious drainage. VITAL SIGNS: Temperature of 99.6 degrees, pulse rate of 94, respiratory rate 26, blood pressure 115/68, saturating 100% on mechanical ventilator. Body weight of 125 pounds, 6.4 ounces. BMI 22.9 kg/m2. Thinly built, lying in bed, intubated, vented, and sedated. HEENT: Positive pallor. No icterus. ET tube in place. NG tube in place. Neck: Supple. Abdomen: Surgical dressing noted. Ostomy noted in the left mid quadrant and there are ISREAL drains coming from the abdomen. Extremities: No cyanosis or clubbing. Mild lower extremity edema noted bilaterally. Neurologic: Sedated. LABORATORY AND DIAGNOSTIC DATA: Hemoglobin and hematocrit is 8.2 and 25.7, white count of 19 platelet count of 292,000. Sodium of 137, potassium 3.3, chloride of 110, bicarbonate of 19, anion gap 8, BUN of 20, creatinine 0.5, glucose of 107, calcium 7 6. Phosphorus is 2.1, magnesium 1.7, total bilirubin is 0.71, direct of 0.5, AST 133, ALT 41, alkaline phosphatase 132, total protein 5.6, albumin of 1.8, pre-albumin is 6.8. ABG showing pH of 7.50, pCO2 of 25, PO2 of 106. This is on ventilator at 45% FiO2. Blood cultures are negative 5 days from 11/28/2018. Sputum culture preliminary 12/04/2018, 0 white cells, 3+ white cells, gram- negative rods, 3+ mucus, normal corie, sparse growth. IMPRESSION AND PLAN: 1. Acute hypoxic respiratory failure, chronic hypoxic respiratory failure, severe chronic obstructive pulmonary disease, status post laparotomy with diverting colostomy, Ellis procedure, and small-bowel resection for rectal perforation. Surgery is on board. 2. Protein-calorie malnutrition. 3. Bibasilar pleural effusions. 4. Peritonitis. 5. Diabetes. 6. Anemia. 7. Gastrointestinal bleed. 8. Electrolyte imbalance. RECOMMENDATIONS: Continue TPN. Surgery is on board, continue to follow up. Continue on recommendations by the primary team, Pulmonary team, and the Surgery team will be on standby if needed. She will continue on IV Zosyn for leukocytosis, which is getting worse. Dr. Raymond is on board. She is on Protonix b.i.d. for GI bleed. She will continue IV antiemetics as needed. Her colostomy is viable and had an output last night. Hopefully, she can be started on enteral feeding soon. Continue to watch her hemoglobin and hematocrit, and transfuse as needed. The above plans were discussed with the patient's nurse at bedside and all questions answered. Please call us with any further issues. cc: MD Shilpa Howell CRNP Leroy F. Harris, MD James E. Boyle, MD Matthew L. Figh, MD Raleigh Adams, MD MTDD
[2018-12-06] MEDS: HUMULIN R SUBQ SCH ×6 (01:01→20:33)
[2018-12-06] MEDS: ZOSYN 3.375 GM in NS 50 ML IV SCH ×4 (01:01→18:15)
[2018-12-06] MEDS: DIPRIVAN 1% 1,000 MG/100 ML BOTTLE IV SCH ×4 (01:02→21:23)
[2018-12-06] MEDS: LASIX IV SCH (02:52)
[2018-12-06] MEDS: XOPENEX NEB INH SCH ×6 (03:06→23:06)
[2018-12-06] MEDS: ATROVENT NEB INH SCH ×6 (03:06→23:06)
[2018-12-06 03:55] LABS: ALLEN TEST YES; BE 8.8 mmoll (-3.0-3.0); BLOOD TYPE ARTERIAL; HCO3-(ACT) 31.8 mmoll (20.0-26.0); METHB 1.3 % (0.0-1.5); O2(CT) 15.3 mL/dL (15.0-23.0); O2HB 95.6 % (95.0-99.0); PCO2(98.6) 33 mmHg (35-45); PO2(98.6) 92 mmHg (60-100); SAMPLE BLOOD; SAO2 97.9 % (95.0-100.0); SRATE 12 BPM; THB 11.3 g/dL (11.5-17.4); TVOL 600 mL
[2018-12-06 03:57] LABS: pH(98.6) 7.58 (7.35-7.45)
[2018-12-06 03:58] LABS: MODALITY VENTILATOR
[2018-12-06] MEDS: HEPARIN SUBQ SCH ×3 (05:47→22:25)
[2018-12-06] MEDS: PROTONIX IV SCH ×2 (05:47→16:47)
[2018-12-06 06:57] LABS: BASO# 0.03 X1000 (0.0-0.2); BASO% 0.2 % (0.0-0.8); EOS# 0.21 X1000 (0.0-0.7); EOS% 1.5 % (0.0-10.0); HEMATOCRIT 24.6 % (37.0-47.0); HEMOGLOBIN 7.7 g/dL (12.0-16.0); IMM GRAN# 0.11 X1000 (0.0-0.04); IMM GRAN% 0.8 % (0.0-0.5); LYMPH# 1.56 X1000 (1.2-3.4); LYMPH% 11.3 % (20.5-51.1); MCHC 31.3 g/dL (33-37); MCV 79.9 FL (81-99); MONO# 1.24 X1000 (0.11-0.59); MPV 10.7 FL (7.4-10.4); NEUT% 77.2 % (42.2-75.2); PLT 293 X1000 (130-400); RBC 3.08 XMIL (4.2-5.4); RDW 22.6 % (11.5-14.5); WBC 13.75 X1000 (4.8-10.8)
[2018-12-06 07:04] LABS: AGAP 14; ALB/GLOB RATIO 0.9; ALKALINE PHOSPHATASE 214 U/L (32-104); BUN 17 mg/dL (8-22); CALCIUM 7.9 mg/dL (8.8-10.2); CHLORIDE 100 mmol/L (98-107); COSMO 282; CREATININE 0.6 mg/dL (0.5-0.9); ESTIMATED GFR > 60; GLUCOSE 147 mg/dL (70-104); GOT 107 U/L (10-30); GPT 59 U/L (10-36); POTASSIUM 2.9 mmol/L (3.5-5.1); SODIUM 139 mmol/L (136-145); TCO2 25 mmol/L (25-35); TOTAL BILIRUBIN 1.01 mg/dL (0.20-1.00); TOTAL PROTEIN 6.4 g/dL (6.3-8.3)
[2018-12-06 07:17] LABS: EOS 4 % (1-10); LYMPHS 8 % (21-51); MAGNESIUM 1.5 mg/dL (1.5-2.7); MONO 8 % (1-9); SEGS 80 % (42-75)
[2018-12-06 07:18] LABS: ANISOCYTOSIS 1+; HYPOCHROM 1+; POIKILOCYTOSIS 1+; TARGET CELLS 1+
--- NOTE | 2018-12-06 07:48 | Diag Imaging Result Doc PS360 ---
EXAM: CHEST-PORTABLE INDICATION: ET tube placement TECHNIQUE: One view COMPARISON: 12/05/2018 FINDINGS: Support tubes and lines are in stable positions. Bibasilar atelectasis and/or infiltrate appears to be stable given slight differences in inspiration. No new consolidation is identified. Cardiac silhouette is stable. IMPRESSION: Essentially stable chest. Electronically signed by Tyron Harper 12/06/2018 7:46 AM
[2018-12-06] MEDS ORDERED: POTASSIUM CHLORIDE 60 MEQ in NS 500 ML IV ONE (08:17)
[2018-12-06] MEDS ORDERED: LASIX IV ONE ×2 (09:47→20:00)
--- NOTE | 2018-12-06 11:04 | PROGRESS NOTE ---
DATE: 12/06/2018 SUBJECTIVE: Ms. Lee is an 78-year-old, white female, who remains on the ventilator in the ICU. She underwent an end diverting colostomy for iatrogenic perforation of the rectum. She has 2 drains in her pelvis which are draining serous fluid. She has had some output from her end colostomy but remains intubated with an NG tube. She is being fed by vein. cc: Selena Duval MD
--- NOTE | 2018-12-06 14:15 | PROGRESS NOTE ---
DATE: 12/06/2018 INTERVAL HISTORY: Patient remains intubated and sedated. Beginning to have a little bit of output from her ostomy largely liquid. Abdominal drains remain in place with largely serous drainage. Remains on TPN. No acute events overnight. REVIEW OF SYSTEMS: Unable to obtain secondary to patient's mental status. LABS: WBC 13.7, hemoglobin 7.7, hematocrit 24.6, platelets 293,000. ABG with pH 7.58, pCO2 33, PO2 92 on ventilator. Sodium 139, potassium 2.9, BUN 17, creatinine 0.6, glucose 147, bilirubin 1.01, AST 107, ALT 59, alkaline phosphatase 214. VITALS: T-max 98.3 degrees, pulse 88, respirations 18, blood pressure 165/58, O2 saturation 100% on ventilator. PHYSICAL EXAMINATION: General: No acute distress, intubated and sedated. Vitals as above. HEENT: Normocephalic, atraumatic. ET tube in place. Cardiovascular: Regular rate and rhythm. Pulmonary: Clear to auscultation bilaterally. Abdomen: Midline remains bandaged. Surgical drain right lower side with serous drainage. Ostomy in left lower quadrant with scant watery output. Bowel sounds remain decreased but a little better than previous. Extremities: Peripheral pulses intact. No clubbing or cyanosis. Neurologic: Pupils equal, round, reactive to light. No obvious focal deficits. Psychiatric: Sedated. Skin: No new lesions noted. ASSESSMENT AND PLAN: 1. Perforation and peritonitis. Patient status post partial large, small bowel resection on 12/[address] Chowdhury with diverting ostomy. Remains on antibiotics with Zosyn which we plan on continuing. Drain still in place with largely serous drainage. Ostomy is starting to put out a little bit. Continue monitor closely in ICU in follow recommendations by surgery. 2. Chronic hypoxic respiratory failure. Patient on 2 L oxygen at home. Stable prior to surgery. Has remains intubated sedated since. Pulm following. Will likely be doing daily weaning trials. Not requiring a tremendous amount of support from the vent so far. 3. Anemia, gastrointestinal bleed. Patient presented initially with gastrointestinal bleed stabilized afterwards but had another drop after surgery, transfused 2 days ago with good response but blood counts have trickled down since then. Rate of decrease appears to be slowing. Likely no need for transfusion at this point unless desired by surgery but if she gets much lower will likely have to give her an additional unit. 4. Fluid, electrolytes nutrition. Patient on total parenteral nutrition. Will continue until patient able to take p.o. Potassium remains low will further replete and monitor, magnesium and phosphorus improved, continue to monitor. 5. Hypertension. Continue moderate elevations. When patient becomes able to take p.o. will start oral antihypertensives. Continue p.r.n. as needed for marked elevations. 6. Hyperlipidemia. Restart statin once she is able to take p.o. 7. Transaminitis likely related to stress of surgery. Bilirubin and transaminases only minimally elevated. Will monitor but likely no need for acute intervention at this time. 8. Chronic systolic congestive heart failure last ejection fraction 30, pulmonary hypertension. Given a little Lasix yesterday try to optimize her respiratory status. No strong evidence for gross volume overload at this point but monitor closely.
--- NOTE | 2018-12-06 15:09 | INFECTIOUS DISEASE PROGRESS NO ---
DATE: 12/06/2018 PRESENT ILLNESS: The patient has a bibasilar pneumonia and peritonitis secondary to colonic perforation. MEDICATIONS: This is the 6th day of the patient being on Zosyn. PHYSICAL EXAMINATION: Vital Signs: Temperature is 97.8 degrees, pulse 88, respirations 18, blood pressure 165/58. General: This is an ill-appearing elderly female. She is intubated and sedated. Head/eyes/ears/nose/throat: She has an orotracheal and nasogastric tube down. There is no drainage from the nose or ears. Neck: There was no stiffness. The patient has a right-sided internal jugular venous catheter in place. The site is not erythematous or purulent. Lungs: Clear to auscultation. Cardiovascular: Regular heart rate. Thorax: The patient has an increased AP diameter of the chest. Abdomen: Soft. The patient's incision has a dressing on it. The dressing is intact. The patient's ostomy is viable. The patient has [address] in the abdomen[address] Neurologic: The patient is sedated. She did not respond to verbal stimuli. She does not have a tremor. LAB AND X-RAY: Chest x-ray shows bibasilar infiltrates/atelectasis. The alkaline phosphatase is 214. Sputum grew a normal corie. Blood gases show a pH of 7.58, a PO2 of 92 and a pCO2 of 33. Creatinine is 0.6. GFR is greater than 60. CBC shows a white count of 13,750, hemoglobin 7.7, and platelet count 293,000. ASSESSMENT AND PLAN: The patient has pneumonia and peritonitis. I plan to continue Zosyn. This is day 6 of treatment with it. COMORBIDITIES: The patient is elderly. She also has chronic obstructive pulmonary disease and diabetes mellitus. cc: Gergory Raymond MD
[2018-12-06] MEDS: MORPHINE IV PRN (15:13)
--- NOTE | 2018-12-06 16:53 | PULMONOLOGY PROGRESS NOTE ---
DATE: 12/06/2018 SUBJECTIVE: The patient is sedated. She went through a spontaneous breathing trial earlier today. Her rapid shallow breathing index remained greater than 105. OBJECTIVE: BP 163/64, heart rate 87, respiratory rate 17, oxygen saturation 100%. HEENT: Pupils are equal and reactive. Oropharynx appears clear but dry. Neck: Supple. Chest: Reveals prolonged expiratory phase without wheezing or rhonchi. Cardiac: S1, S2. Abdomen: Soft with positive colostomy output. Extremities: Revealed slight decrease in edema. LABORATORIES: Chest x-ray reveals stable bibasilar infiltrates/atelectasis. Sodium 139, potassium 2.9, chloride 100, bicarbonate 25, BUN 17, creatinine 0.6, glucose 147, phosphorus 3.0, magnesium 1.5, albumin 3.0. Arterial blood gas reveals a pH of 7.58, pCO2 of 33, PO2 of 92. IMPRESSION: An 78-year-old with 1. Acute hypoxemic respiratory failure. 2. Chronic hypoxemic respiratory failure. 3. Severe chronic obstructive pulmonary disease. 4. Status post iatrogenic colonic perforation requiring surgical repair. 5. Bilateral effusions with radiographic improvement with diuresis. 6. Protein calorie malnutrition. 7. Diabetes mellitus. 8. Peritonitis. PLAN: 1. Continue ventilatory support with daily weaning. 2. Discontinue bicarbonate with alkalosis. Her hyperchloremic metabolic acidosis has resolved. 3. Continue TPN. 4. Continue gastric acid suppression. 5. Continue DVT prophylaxis. TIME SPENT: In critical care management 35 minutes. cc: Daniel Rodriguez MD
[2018-12-06] MEDS: POTASSIUM CHLORIDE IV SCH ×9 (17:24)
[2018-12-06] MEDS: [UNRECOGNIZED DRUG - OTHER] IV SCH ×9 (17:24)
[2018-12-06] MEDS: MAGNESIUM SULFATE IV SCH ×9 (17:24)
[2018-12-06] MEDS: TPN ELECTROLYTES IV SCH ×9 (17:24)
--- NOTE | 2018-12-06 17:31 | GASTROENTEROLOGY PROGRESS NOTE ---
DATE: 12/06/2018 SUBJECTIVE: Patient resting in bed. She is intubated, vented, and sedated. She is on TPN. I spoke with the patient's nurse at bedside, also the patient's family in the waiting area. OBJECTIVE: Vital signs: Temperature 98.8 degrees, pulse of 86, respiratory rate 20, blood pressure 163/64. Saturating 100% on mechanical ventilator. Body weight 117 pounds 11.2 ounces. BMI 21.5 kg/m2. General Appearance: Thinly built, lying in bed. Intubated, vented, and sedated. HEENT: Positive pallor. NG tube in place. No icterus. Positive ET tube. Neck: Supple. Abdomen: Abdominal dressing in place. Colostomy in the left side of the abdomen. Pelvic drains noted. Extremities: No cyanosis, clubbing. Neuro: She is sedated. LABS: Hemoglobin and hematocrit are 7.7 and 24.6, white count of 13.75, platelet count of 293. ABG showing pH of 7.58, PO2 of 92; this is on ventilator at 35% FiO2. Sodium 139, potassium 2.9, chloride 100, bicarb 25, anion of 14, BUN of 17, creatinine 0.6, glucose of 147. Calcium is 7.9, phosphorus 3.0, magnesium 1.5. Total bilirubin is 1.01, AST 107, ALT 59, alkaline phosphatase 214. Total protein 6.4. Sputum culture showing normal corie, fast growth. Blood cultures are negative at 5 days from 11/28/2018. Chest x-ray done today showed bibasilar atelectasis and/or infiltrate. Appears to be stable given slight differences in inspiration. No new consolidations identified. IMPRESSION AND PLAN: 1. Acute hypoxic respiratory failure, chronic hypoxic respiratory failure, severe chronic obstructive pulmonary disease, status post laparotomy with diverting colostomy, Ellis procedure, and small bowel resection for rectal perforation. Surgery is on board. 2. Respiratory failure in the setting of chronic obstructive pulmonary disease and pneumonia. She is being followed by Dr. Rodriguez. They are trying to slowly wean her down from ventilator. 3. Malnutrition. She is on TPN. 4. Status post colostomy. Her colostomy is being monitored by the surgery team. She did have output from the colostomy per the nursing staff. 5. Fecal contamination in the abdomen and peritonitis. She is on broad-spectrum antibiotics per Dr. Raymond. 6. Pneumonia. She is on broad spectrum antibiotics per Dr. Raymond. 7. History of chronic smoking. Quit about a few months ago. 8. Diabetes. She is being managed by the primary team. 9. Anemia. Continue to watch for now and transfuse as needed. 10. Gastrointestinal bleeding, likely from the diseased colon. Continue to watch her blood count, transfuse as needed. 11. Electrolyte imbalances, being managed by the primary team. 12. Gastrointestinal prophylaxis, PPIs. The above plan of care discussed with the patient's family in the waiting area, also the patient's nurse at bedside. All questions answered. Please call us with any further questions. cc: MD Shilpa Howell CRNP Raleigh Adams, MD Leroy F. Harris, MD James E. Boyle, MD MTDD
[2018-12-06] MEDS: KLONOPIN PO SCH (20:34)
[2018-12-07] MEDS: HUMULIN R SUBQ SCH ×6 (00:42→20:24)
[2018-12-07] MEDS: ZOSYN 3.375 GM in NS 50 ML IV SCH ×4 (01:02→19:39)
[2018-12-07] MEDS: DIPRIVAN 1% 1,000 MG/100 ML BOTTLE IV SCH ×3 (01:51→19:39)
[2018-12-07] MEDS: ATROVENT NEB INH SCH ×6 (03:00→22:40)
[2018-12-07] MEDS: XOPENEX NEB INH SCH ×6 (03:00→22:41)
[2018-12-07 04:28] LABS: ALLEN TEST YES; BE 12.6 mmoll (-3.0-3.0); BLOOD TYPE ARTERIAL; HCO3-(ACT) 34.7 mmoll (20.0-26.0); METHB 1.3 % (0.0-1.5); O2(CT) 11.6 mL/dL (15.0-23.0); O2HB 94.8 % (95.0-99.0); PCO2(98.6) 39 mmHg (35-45); PO2(98.6) 80 mmHg (60-100); SAMPLE BLOOD; SAO2 97.1 % (95.0-100.0); SRATE 8 BPM; THB 8.6 g/dL (11.5-17.4); TVOL 600 mL
[2018-12-07 04:29] LABS: MODALITY VENTILATOR; pH(98.6) 7.57 (7.35-7.45)
[2018-12-07] MEDS: PROTONIX IV SCH ×3 (05:00→17:01)
[2018-12-07] MEDS: HEPARIN SUBQ SCH ×3 (05:01→22:17)
[2018-12-07] MEDS: SODIUM CHLORIDE 0.9% INJ SCH (05:01)
--- NOTE | 2018-12-07 06:15 | GENERAL SURGERY PROGRESS NOTE ---
DATE: 12/07/2018 SUBJECTIVE: Patient seems to be doing okay per the nursing staff. OBJECTIVE: Vital Signs: Patient is currently afebrile, her vital signs stable. General: Sedated on the ventilator. Cardiovascular: Regular rate and rhythm. Lungs: Referred airway noises. Abdomen: Soft. Ostomy appears to be viable with some output. ISREAL drain is in place with serosanguineous output. LABORATORY: Currently pending from this morning. ABG reviewed. ASSESSMENT AND PLAN: An 78-year-old female, currently postoperative day #4 from open Elils's procedure and small bowel resection. Postoperative state at this time, the patient is having ostomy output. We will have dietitian make some recommendations for starting tube feeds and hopefully starting today. Otherwise, continue supportive care. cc: Noah Chowdhury MD
[2018-12-07 06:39] LABS: AGAP 15; ALB/GLOB RATIO 0.8; ALBUMIN 2.8 g/dL (3.5-5.0); ALKALINE PHOSPHATASE 224 U/L (32-104); BUN 20 mg/dL (8-22); CALCIUM 8.6 mg/dL (8.8-10.2); CHLORIDE 96 mmol/L (98-107); COSMO 285; CREATININE 0.6 mg/dL (0.5-0.9); ESTIMATED GFR > 60; GLUCOSE 152 mg/dL (70-104); GOT 44 U/L (10-30); GPT 42 U/L (10-36); POTASSIUM 2.9 mmol/L (3.5-5.1); SODIUM 140 mmol/L (136-145); TCO2 29 mmol/L (25-35); TOTAL BILIRUBIN 0.59 mg/dL (0.20-1.00); TOTAL PROTEIN 6.5 g/dL (6.3-8.3)
--- NOTE | 2018-12-07 06:43 | Diag Imaging Result Doc PS360 ---
EXAM: CHEST-PORTABLE HISTORY: ET tube placement TECHNIQUE: Portable chest single view COMPARISON: 12/06/2018 FINDINGS: No change in the endotracheal tube, nasogastric tube, or right jugular line. Lungs are well expanded. The patient is rotated to the left. No cardiomegaly. Mild increased interstitial markings similar to the prior study. Trace left effusion. IMPRESSION: Stable chest Electronically signed by Kofi Nolasco 12/07/2018 6:40 AM
[2018-12-07 07:11] LABS: BASO# 0.05 X1000 (0.0-0.2); BASO% 0.4 % (0.0-0.8); EOS% 1.6 % (0.0-10.0); HEMATOCRIT 27.5 % (37.0-47.0); HEMOGLOBIN 8.6 g/dL (12.0-16.0); IMM GRAN# 0.11 X1000 (0.0-0.04); IMM GRAN% 0.9 % (0.0-0.5); LYMPH# 1.73 X1000 (1.2-3.4); LYMPH% 14.1 % (20.5-51.1); MCH 25.2 PG (27-31); MCHC 31.3 g/dL (33-37); MCV 80.6 FL (81-99); MONO# 1.36 X1000 (0.11-0.59); MONO% 11.1 % (1.7-9.3); MPV 10.7 FL (7.4-10.4); NEUT# 8.79 X1000 (1.4-6.5); NEUT% 71.9 % (42.2-75.2); PLT 360 X1000 (130-400); RBC 3.41 XMIL (4.2-5.4); RDW 22.8 % (11.5-14.5); WBC 12.24 X1000 (4.8-10.8)
[2018-12-07 07:19] LABS: MAGNESIUM 1.6 mg/dL (1.5-2.7); PHOSPHORUS 3.9 mg/dL (2.7-4.5)
[2018-12-07 07:49] LABS: ANISOCYTOSIS 2+; EOS 1 % (1-10); LYMPHS 15 % (21-51); MONO 2 % (1-9); SEGS 81 % (42-75); TARGET CELLS 2+
[2018-12-07] MEDS ORDERED: POTASSIUM CHLORIDE 60 MEQ in NS 500 ML IV ONE (08:00)
[2018-12-07 10:34] LABS: ALLEN TEST YES; BE 10.2 mmoll (-3.0-3.0); BLOOD TYPE ARTERIAL; HCO3-(ACT) 32.8 mmoll (20.0-26.0); METHB 1.1 % (0.0-1.5); O2HB 93.9 % (95.0-99.0); PCO2(98.6) 37 mmHg (35-45); PO2(98.6) 69 mmHg (60-100); SAMPLE BLOOD; SAO2 96.2 % (95.0-100.0); THB 9.8 g/dL (11.5-17.4)
[2018-12-07 10:41] LABS: pH(98.6) 7.56 (7.35-7.45)
[2018-12-07 10:42] LABS: MODALITY VENTILATOR
--- NOTE | 2018-12-07 11:20 | PROGRESS NOTE ---
DATE: 12/07/2018 INTERVAL HISTORY: Patient remains intubated and sedated. Failed spontaneous breathing trial yesterday. Remains afebrile. Ostomy output is slightly increased. No acute events overnight. REVIEW OF SYSTEMS: Unable to obtain secondary to patient's mental status. LABORATORY DATA: WBC 12.2, hemoglobin 8.6, hematocrit 27.5, platelets 360,000. ABG with pH 7.56, pCO2 37, PO2 69 on ventilator, 35% oxygen. Sodium 140, potassium 2.9, chloride 96, BUN 20, creatinine 0.6, glucose 140 to 155. IMAGING: Chest x-ray with mild increased interstitial markings, essentially unchanged from previous. OBJECTIVE: Vital Signs: T-max 98.8 degrees, pulse 85, respirations 20, blood pressure 138/56, O2 saturation 100% on ventilator. General: No acute distress, intubated and sedated. HEENT: Normocephalic, atraumatic. ET tube remains in place. Cardiovascular: Regular rate and rhythm. Left lower sternal border murmur unchanged. Pulmonary: Largely clear to auscultation bilaterally. Abdomen: Midline remains bandaged. Surgical drain in right lower side stable. Ostomy in the left lower quadrant with slightly less watery output. Bowel sounds decreased but improving. Extremities: Peripheral pulses intact. No clubbing or cyanosis. Neurologic: Pupils equal, round, reactive to light. No clear focal deficits. Psychiatric: Sedated. Skin: No new rashes or lesions noted. ASSESSMENT AND PLAN: 1. Colon Perforation. peritonitis. The patient is status post partial large and small bowel resections on 12/03/[address] Chowdhury with diverting ostomy. Remains on antibiotics with Zosyn which we continue. Drain still in place. Ostomy with low output, but a little more than previous. Infectious Disease following. Overall, she is doing fairly well. 2. Chronic hypoxic respiratory failure. Patient on 2 L oxygen at home. Stable on that prior to surgery. Has remained intubated and sedated since surgery. Pulmonology following and conducting daily weaning trials. Hopeful for extubation soon. 3. Anemia and gastrointestinal bleed. Patient initially presented with gastrointestinal bleed. Hemoglobin and hematocrit stabilized afterwards but did not drop after surgery. Transfused 2 days ago with good response. Had a little bit of a downtrend subsequent to that but improved spontaneously this morning. We will continue monitoring but hopefully will not need further transfusion. 4. Fluids, electrolytes, nutrition. Patient remains on TPN until able to take adequate p.o. Potassium remains quite low, likely because of the need for Lasix, so we will continue to replete and monitor. Phosphorus and magnesium remain improved. 5. Hypertension. Continued mild to moderate elevations but acceptable currently. When she is able to take p.o., we will get her back on some of her home medications. 6. Hyperlipidemia. Restart statin once she is able to take p.o. 7. Transaminitis, likely related to stress of surgery. Trending down. 8. Chronic systolic congestive heart failure, last ejection fraction 30%, also with pulmonary hypertension. Pulmonology has been intermittently dosing Lasix to try to optimize respiratory status. No gross volume overload or exacerbation. [facility]
--- NOTE | 2018-12-07 11:28 | GASTROENTEROLOGY PROGRESS NOTE ---
DATE: 12/07/2018 SUBJECTIVE: Ms. Lee 78 year old female is resting in bed. She is intubated, vented and sedated. She is on TPN. She failed Weaning trial today. OBJECTIVE: Vital Signs: Temperature is 97.4 degrees pulse is 109, respirations are 39, blood pressure is 150/71, oxygen saturation is 90%. Her weight is 105.6 pounds. BMI is 19.32 kg/m2. General: She is resting in bed, intubated, vented and sedated. HEENT: Pale conjunctivitis. NG tube in place. No icterus. Positive ET tube. Neck: Supple. Abdomen: She has got a midline incision. Dressing dry and intact. Colostomy in the left side of the abdomen with 2 ISREAL drains. Extremities: No cyanosis, clubbing, or edema. 2+ pulses present bilaterally. Neuro: She is sedated. LABORATORY DATA: WBCs 12.24, RBCs of 3.41, hemoglobin is 8.6, hematocrit is 27.5, platelet count is 360,000. Blood gases pH is 7.57, pCO2 is 39, PO2 is 80, HC03 is 34.7. Sodium is 140, potassium is 2.9, chloride is 96, carbon dioxide is 29, anion gap is 15, BUN is 20, creatinine 0.6, glucose is 152, calcium is 8.6, phosphorus is 3, magnesium is 1.6. Her AST is 44, ALT is 42, alkaline phosphatase is 224. Chest x-ray shows stable chest. IMPRESSION/PLAN: Acute hypoxia with hypoxic respiratory failure. Malnutrition status post colostomy. Fecal contamination in the abdomen and peritonitis. Colon perforation Pneumonia COPD History of chronic smoking. Diabetes. Anemia. GI bleed. Electrolyte imbalance. PLAN: We will continue patient with GI prophylaxis. She is on broad-spectrum antibiotics as per Dr. Raymond. She is receiving TPN for her malnutrition. Respiratory failure in setting of COPD and Pneumonia, trying to wean her down from ventilator per pulmonary team. Her GI bleed is improved since the colostomy; we will continue to monitor her CBC and transfuse blood if needed. We will continue to follow the plan of care per primary team, Infectious Disease, powerhouse attendant, and the surgeon. This plan was discussed with Dr. Davis. Please call us with any further questions or concerns. Dictated by FLORENTIN Lopes for Haroon Davis MD cc: Haroon Davis MD I have seen and examined the patient myself and I agree with the above plan of care. Discussed the above with the patient's RN at bedside and all questions were answered. Spoke to Dr Raymond and Dr Chowdhury as well. Will continue to monitor. Please call us with any further questions or concerns. [facility]
--- NOTE | 2018-12-07 11:36 | INFECTIOUS DISEASE PROGRESS NO ---
DATE: 12/07/2018 PRESENT ILLNESS: The patient had a bibasilar pneumonia. On the latest chest x- ray no pneumonia is present. The patient does have peritonitis secondary to colonic perforation. MEDICATIONS: This is the 7th day of treatment with Zosyn. PHYSICAL EXAMINATION: Vital Signs: Temperature 98 degrees, pulse 109, respirations 39, and blood pressure 150/71. General: This is an ill-appearing elderly female. She is intubated and sedated. Head/eyes/ears/nose/throat: The patient has an orotracheal and nasal gastric tubes in place. There is not any drainage from the nose or the ears. 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 The left eyelid is closed. Neck: The patient has a right- sided internal jugular vein catheter in place. The site is not erythematous or purulent. Lungs: Clear to auscultation. Cardiovascular: Heart rate is regular. Thorax: The patient has an increased AP diameter of the chest. Abdomen: Soft. The patient's incision has a dressing on it. The dressing is intact. The patient has [address] The drain sites are not erythematous or purulent. She also has an ostomy in place which is functioning well. Neurologic: The patient is obtunded. She did not respond to verbal stimuli. LABORATORY AND X-RAY: Chest x-ray showed no infiltrate. [place] [address], hemoglobin 8.6, and platelet count 360,000. Blood gases show a pH of 7.57, PO2 of 80, and a pCO2 of 39. Creatinine is 0.6 GFR is greater than 60. Alkaline phosphatase 224. ASSESSMENT AND PLAN: The patient had a bibasilar pneumonia. It appears to be clearing. The patient has peritonitis secondary to colonic perforation. I have ordered a culture from both drains and empirically started the patient on Zyvox and micafungin pending culture results. COMORBIDITIES: The patient is elderly. She has chronic obstructive pulmonary disease and diabetes mellitus. cc: Gregory Raymond MD [facility]
[2018-12-07] MEDS: MYCAMINE 100 MG in NS 100 ML IV SCH (12:46)
[2018-12-07] MEDS: ZYVOX 600 MG/D5W 600 MG/300 ML IVPB IV SCH ×2 (12:46→22:17)
[2018-12-07] MEDS: MAGNESIUM SULFATE IV SCH ×9 (17:04)
[2018-12-07] MEDS: POTASSIUM CHLORIDE IV SCH ×9 (17:04)
[2018-12-07] MEDS: TPN ELECTROLYTES IV SCH ×9 (17:04)
[2018-12-07] MEDS: [UNRECOGNIZED DRUG - OTHER] IV SCH ×9 (17:04)
--- NOTE | 2018-12-07 20:37 | PULMONOLOGY PROGRESS NOTE ---
DATE: 12/07/2018 SUBJECTIVE: The patient is arousable to alert. She was placed on a spontaneous breathing trial earlier this morning, which she subsequently failed due to tachypnea. OBJECTIVE: Vital Signs: The patient has been afebrile for the last 24 hours, blood pressure 104/45, heart rate 87, respiratory rate 17, oxygen saturation 100%. HEENT: Pupils are equal and reactive. Oropharynx appears clear. Neck is supple. Chest reveals occasional rhonchi bilaterally with prolonged expiratory phase. Cardiac: Regular rate, normal S1, normal S2. Abdomen is soft with positive bowel sounds and positive ostomy output. Pelvic drains remain in place. Extremities reveal no edema. LABORATORIES: Arterial blood gas reveals a pH 7.56, pCO2 of 37, PO2 of 69. Sodium 140, potassium 2.9, chloride 96, bicarbonate 29, BUN 20, creatinine 0.6. White blood count 12.24, hemoglobin 8.6, platelet count 360,000. IMPRESSION: An 78-year-old with: 1. Acute hypoxemic respiratory failure. 2. Chronic hypoxemic respiratory failure. 3. Severe chronic obstructive pulmonary disease. 4. Bilateral effusions/infiltrates with continued improvement with diuresis. 5. Iatrogenic colon perforation requiring surgical repair. 6. Protein-calorie malnutrition. 7. Peritonitis. 8. Diabetes mellitus. PLAN: 1. Continue daily attempts for weaning. If it appears that these are continuing to fail, I will discuss compassionate extubation or tracheostomy with the family by the end of the week. 2. Continue TPN. 3. Continue gastric acid suppression. 4. Agree with DVT prophylaxis. 5. Agree with trial of tube feeds. Time spent in critical care management: 30+ minutes cc: Daniel Rodriguez MD [facility]
[2018-12-07] MEDS ORDERED: LASIX IV ONE (23:00)
[2018-12-08] MEDS: ZOSYN 3.375 GM in NS 50 ML IV SCH ×4 (01:23→21:10)
[2018-12-08] MEDS: HUMULIN R SUBQ SCH ×6 (01:24→21:21)
[2018-12-08] MEDS: XOPENEX NEB INH SCH ×6 (03:00→23:13)
[2018-12-08] MEDS: ATROVENT NEB INH SCH ×6 (03:00→23:13)
[2018-12-08] MEDS: DIPRIVAN 1% 1,000 MG/100 ML BOTTLE IV SCH ×2 (03:34→08:36)
[2018-12-08 04:18] LABS: ALLEN TEST YES; BE 8.7 mmoll (-3.0-3.0); BLOOD TYPE ARTERIAL; HCO3-(ACT) 31.7 mmoll (20.0-26.0); METHB 1.2 % (0.0-1.5); O2(CT) 12.5 mL/dL (15.0-23.0); O2HB 94.3 % (95.0-99.0); PCO2(98.6) 34 mmHg (35-45); PO2(98.6) 72 mmHg (60-100); SAMPLE BLOOD; SAO2 96.6 % (95.0-100.0); SRATE 8 BPM; THB 9.4 g/dL (11.5-17.4); TVOL 600 mL
[2018-12-08 04:20] LABS: MODALITY VENTILATOR; pH(98.6) 7.57 (7.35-7.45)
[2018-12-08] MEDS: PROTONIX IV SCH ×2 (04:53→17:51)
[2018-12-08] MEDS: SODIUM CHLORIDE 0.9% INJ SCH ×2 (04:53→17:51)
[2018-12-08 04:58] LABS: MAGNESIUM 1.8 mg/dL (1.5-2.7); PHOSPHORUS 2.9 mg/dL (2.7-4.5)
[2018-12-08] MEDS: HEPARIN SUBQ SCH ×4 (05:13→21:10)
[2018-12-08 06:21] LABS: AGAP 15; ALB/GLOB RATIO 0.7; ALBUMIN 2.6 g/dL (3.5-5.0); ALKALINE PHOSPHATASE 200 U/L (32-104); BUN 24 mg/dL (8-22); CALCIUM 7.8 mg/dL (8.8-10.2); CHLORIDE 98 mmol/L (98-107); COSMO 287; CREATININE 0.5 mg/dL (0.5-0.9); ESTIMATED GFR > 60; GLUCOSE 170 mg/dL (70-104); GOT 44 U/L (10-30); GPT 39 U/L (10-36); POTASSIUM 2.8 mmol/L (3.5-5.1); SODIUM 140 mmol/L (136-145); TCO2 27 mmol/L (25-35); TOTAL BILIRUBIN 0.42 mg/dL (0.20-1.00); TOTAL PROTEIN 6.5 g/dL (6.3-8.3)
--- NOTE | 2018-12-08 06:32 | GENERAL SURGERY PROGRESS NOTE ---
DATE: 12/08/2018 SUBJECTIVE: Patient failed spontaneous breathing trial yesterday. Nursing staff reports no major issues through the night. She has been started on tube feeds which she seems to be tolerating. OBJECTIVE: Vital Signs: Patient is currently afebrile. Her vital signs are stable. General: No acute distress. Cardiovascular: Regular rate and rhythm. Lungs: Referred airway noises. Abdomen: Soft incision is healing. ISREAL drain is in place with serosanguineous output. Ostomy appears to be viable and functioning. LABORATORY: Pending for this morning. ABG reviewed. ASSESSMENT/PLAN: 78-year-old female, currently postoperative day #5 from open Ellis's procedure and small bowel obstruction: 1. Postoperative state at this time. Continue supportive care. Continue antibiotics. 2. We will continue to monitor. Hopefully, we can get her off the ventilator here soon. 3. I appreciate the consultants help and will continue to follow. cc: Noah Chowdhury MD
[2018-12-08 06:37] LABS: BASO# 0.06 X1000 (0.0-0.2); BASO% 0.4 % (0.0-0.8); EOS# 0.36 X1000 (0.0-0.7); EOS% 2.6 % (0.0-10.0); HEMATOCRIT 26.2 % (37.0-47.0); HEMOGLOBIN 8.2 g/dL (12.0-16.0); IMM GRAN# 0.13 X1000 (0.0-0.04); IMM GRAN% 0.9 % (0.0-0.5); LYMPH# 1.91 X1000 (1.2-3.4); LYMPH% 13.9 % (20.5-51.1); MCH 25.4 PG (27-31); MCHC 31.3 g/dL (33-37); MCV 81.1 FL (81-99); MONO# 1.47 X1000 (0.11-0.59); MONO% 10.7 % (1.7-9.3); MPV 10.4 FL (7.4-10.4); NEUT# 9.86 X1000 (1.4-6.5); NEUT% 71.5 % (42.2-75.2); PLT 438 X1000 (130-400); RBC 3.23 XMIL (4.2-5.4); RDW 23.1 % (11.5-14.5); WBC 13.79 X1000 (4.8-10.8)
[2018-12-08 06:52] LABS: ANISOCYTOSIS 1+; BANDS 4 % (0-1); EOS 6 % (1-10); HYPOCHROM 2+; LYMPHS 10 % (21-51); MONO 6 % (1-9); SEGS 70 % (42-75)
--- NOTE | 2018-12-08 07:08 | Diag Imaging Result Doc PS360 ---
EXAM: CHEST-PORTABLE 12/08/2018 HISTORY: ET tube placement TECHNIQUE: AP portable at 0530 COMMENT: There is an NG tube which passes below the diaphragm. There is a right internal jugular central venous catheter with its tip in the superior vena cava. There is an endotracheal tube with its tip proximally 3 cm above the tom. The patient is rotated to the left. There is COPD. There is atelectasis versus pneumonia in both lower lobes particularly the left lower lobe. IMPRESSION: Bibasilar atelectasis. COPD. Electronically signed by Sher Michelle 12/08/2018 7:06 AM
[2018-12-08] MEDS: ZYVOX 600 MG/D5W 600 MG/300 ML IVPB IV SCH ×2 (10:31→23:20)
[2018-12-08] MEDS: MYCAMINE 100 MG in NS 100 ML IV SCH (10:31)
[2018-12-08] MEDS: MORPHINE IV PRN ×4 (11:01→21:11)
[2018-12-08] MEDS: POTASSIUM CHLORIDE 20 MEQ/SWI 20 MEQ/100 ML IVPB IV SCH ×2 (11:38→13:18)
--- NOTE | 2018-12-08 11:51 | PROGRESS NOTE ---
DATE: 12/08/2018 SUBJECTIVE: This morning, Ms. Lee refers to be doing well. She is still intubated, but she was going through SBT. One of her daughters was at the bedside at the time of the encounter. Per the nursing staff, night was uneventful. OBJECTIVE: Vital Signs: Blood pressure is 116/48, pulse of 89, respirations 36, temperature is 98.1 degrees. General: Ms. Lee is an 78-year-old female. She is in bed. She is currently intubated, but she seems to be synchronizing well on the ventilator on a setting of SBT. Chest: Good air entry bilaterally. No crepitations. Cardiovascular: Regular rate and rhythm. Abdomen: Soft. There is a well-affronted surgical incision in the mid anterior abdominal wall. There is a ISREAL drain on the right side, and an ostomy on the left side with some fecal material. : Gloria catheter is in place. Extremities: No pedal edema. TRANSPORTATION ASSISTANT: The patient is awake. Follows some basic commands. IMAGING AND LABORATORY DATA: WBC is 13.79, hemoglobin is 8.2, platelet count of 438,000. Chemistry is also reviewed. Potassium is 2.8. Rest of chemistry is unremarkable. Imaging studies this morning show bibasilar atelectasis, COPD. ASSESSMENT: 1. Septic shock secondary to peritonitis. 2. Peritonitis with fecal contamination from colonic perforation. 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 All of these were done by Dr. Chowdhury on 12/03/2018. Today is day 5 postoperatively. 3. Acute on chronic hypoxemic respiratory failure after abdominal surgery. The patient is intubated, currently undergoing spontaneous breathing trial. 4. Severe chronic obstructive pulmonary disease with bibasilar infiltrate concerning for pneumonia. The patient has a history of methicillin-resistant staphylococcus aureus in the sputum. She has been covered with Zyvox. 5. Protein calorie malnutrition. The patient seems to be tolerating her tube feedings, and she is also on total parenteral nutrition. 6. Diabetes mellitus, controlled. 7. Transaminitis. Liver enzymes improving. 8. History of chronic congestive heart failure, ejection fraction of 30%. cc: Artemio Disla MD [facility]
--- NOTE | 2018-12-08 12:05 | GASTROENTEROLOGY PROGRESS NOTE ---
DATE: 12/08/2018 SUBJECTIVE: Ms. Lee is an 78-year-old female who is resting in bed. She is intubated, vented and sedated. She is on TPN. She failed weaning trial yesterday. OBJECTIVE: Vital Signs: Temperature 98.1 degrees, pulse 95, respirations 21, blood pressure is 96/71, oxygen saturation is 94%. The patient's weight is 102 pounds. BMI is 18.7 kg/m2. General: She is resting in bed, intubated, vented and sedated. Unable to assess the patient. HEENT: Pale conjunctivae. NG tube in place. No icterus. Positive ET tube. Neck: Supple. Abdomen: She has a midline incision, dressing dry and intact. Colostomy on the left side of the abdomen with 2 ISREAL drains. Extremities: No cyanosis, clubbing, or edema. 2+ pedal pulses present bilaterally. Neurologic: She is sedated. LABORATORY DATA: WBC is 13.79, RBC is 3.23, hemoglobin 8.2, hematocrit is 26.2, platelet count is 438,000. Her pH is 7.57, pCO2 is 24, PO2 is 72, HC03 is 31.7. Sodium is 140, potassium is 2.8, chloride is 98, carbon dioxide is 27, anion gap is 15, BUN is 24, creatinine is 0.5, calcium is 7.8. Phosphorus 2.9, magnesium is 1.8. AST 44, ALT 39, alkaline phosphatase is 200. IMAGING: Chest x-ray shows bibasilar atelectasis, COPD. IMPRESSION: 1. Acute hypoxia with hypoxic respiratory failure. 2. Malnutrition, status post colostomy. 3. Fecal contamination in the abdomen and peritonitis. 4. Colon perforation. 5. Pneumonia. 6. Chronic obstructive pulmonary disease. 7. History of chronic smoking. 8. Diabetes. 9. Anemia. 10. GI bleed. 11. Electrolyte imbalance. PLAN: We will continue the patient with GI prophylaxis. She is on broad- spectrum antibiotics as per Dr. Raymond. She is receiving TPN for malnutrition, respiratory failure in the setting of COPD and pneumonia. Pulmonology team is trying to wean her from the ventilator. Her GI bleed has improved since the colostomy. We will continue to monitor her CBCs and transfuse blood as needed. We will continue to follow the plan of care with primary care team, infectious Disease, cradle slide maker, and the surgeon. This plan was discussed with Dr. More. Please call us with any further questions or concerns. Dictated by FLORENTIN Lopes for Valentino More MD Physician Attestation I have seen and examined the patient. I have discussed and reviewed the the note by Mony LERMA and agree with findings and plan as documented. Patient admitted with rectal bleed. Course complicated by colonic perforation in setting of colonoscopy s/p ex-lap with sigmoidectomy and end-colostomy with takedown of enterocolonic fistula. She remains intubated. Tolerating tube feeds. Titrate to goal. Recommend weaning TPN. MTDD
[2018-12-08] MEDS: [UNRECOGNIZED DRUG - OTHER] IV SCH ×18 (15:04→17:14)
[2018-12-08] MEDS: POTASSIUM CHLORIDE IV SCH ×18 (15:04→17:14)
[2018-12-08] MEDS: TPN ELECTROLYTES IV SCH ×18 (15:04→17:14)
[2018-12-08] MEDS: MAGNESIUM SULFATE IV SCH ×18 (15:04→17:14)
--- NOTE | 2018-12-08 17:09 | INFECTIOUS DISEASE PROGRESS NO ---
DATE: 12/08/2018 PRESENT ILLNESS: The patient has peritonitis secondary to colonic perforation. Her most recent chest x-ray shows bibasilar atelectasis and not pneumonia. MEDICATIONS: This is day 8 of treatment with Zosyn and day 1 of treatment with Zyvox and micafungin. PHYSICAL EXAMINATION: General: Is an ill-appearing elderly female. She is no longer intubated. She has a BiPAP mask on and she is awake and attempting to talk. Head, eyes, ears, nose and throat: Patient has a BiPAP mask on. There is no drainage from her nose or ears. She is trying to talk but it is difficult because she has a BiPAP mask on. Neck: No pain with movement. The patient does have a right-sided internal jugular venous catheter in place. The site is not erythematous or draining. Thorax: Patient has an increased AP diameter of the chest. Lungs: Had bilateral rhonchi. Cardiovascular: Heart rate is regular. Abdomen: Soft. It is not tender. The midline incision is intact. There is no drainage or erythema. The patient's ostomy is functional and the 2 drain sites are not erythematous or purulent. Patient has [address] Neurologic: The patient is awake today. She is trying to talk. She can move her extremities. LAB AND X-RAY: Chest x-ray shows bibasilar atelectasis. The culture from the drainage tubes is negative. Alkaline phosphatase is 200, creatinine is 0.5, GFR is greater than 60. Blood gases show a pH of 7.57, PO2 of 72, and a pCO2 of 34. CBC shows a white count of 13,790, hemoglobin 8.2, and platelet count 438,000. ASSESSMENT AND PLAN: The patient's pneumonia I think is clearing up and also I think her peritonitis is clearing up. Patient is looking much better. She still does have leukocytosis though. My plan is to continue with the current antimicrobial agents namely Zyvox, micafungin and Zosyn. COMORBIDITIES: The patient is elderly. She has chronic obstructive pulmonary disease and diabetes mellitus. cc: Gregory Raymond MD
--- NOTE | 2018-12-08 19:21 | PULMONOLOGY PROGRESS NOTE ---
DATE: 12/08/2018 INTERIM HISTORY: Patient was placed on a spontaneous breathing trial earlier this morning. She was observed for several hours and tolerated without difficulty. The patient was extubated. She has had fluctuating pulmonary status during the day, and has been cycling BiPAP as necessary. She currently is off BiPAP and is conversant. OBJECTIVE: Vital Signs: Maximum temperature in the last 24 hours 100.1 degrees. Blood pressure 150/66, heart rate 102, respiratory rate 22, oxygen saturation 100%. HEENT: Pupils are equal and reactive. Oropharynx appears clear. Neck: Supple. Chest: Distant breath sounds bilaterally with occasional rhonchi. Cardiac: S1, S2. Abdomen: Soft with positive bowel sounds and positive ostomy output. Extremities: Without edema. LABORATORIES: Chest x-ray reveals endotracheal tube in good position, central line in good position, scoliosis, mild basilar atelectasis. White blood count 13.8, hemoglobin 8.2, platelet count 438,000. Arterial blood gas reveals pH 7.57, pCO2 of 34, pO2 of 72. Chemistries: Sodium 140, potassium 2.8, chloride 98, bicarbonate 24, BUN 0.5 glucose 170. IMPRESSION: An 78-year-old with: 1. Acute hypoxemic respiratory failure. 2. Chronic hypoxemic respiratory failure. 3. Severe chronic obstructive pulmonary disease. 4. Bibasilar infiltrates/effusion. 5. Iatrogenic colonic perforation, status post surgical repair. 6. Protein-calorie malnutrition. 7. Diabetes mellitus. 8. Peritonitis. DISCUSSION: An 78-year-old with problems outlined above. She has been successfully extubated, but her pulmonary status does remain marginal. Her NG tube was removed so that BiPAP could be utilized if necessary. PLAN: 1. Continue to cycle BiPAP at bedtime and as needed as tolerated. 2. Continue total parenteral nutrition. 3. Replace potassium. 4. Continue gastric acid suppression. 5. Deep venous thrombosis prophylaxis. 6. Consider replacing a soft bore feeding tube tomorrow if oral intake is to be delayed. TIME SPENT IN CRITICAL CARE MANAGEMENT: 30+ minutes. cc: Daniel Rodriguez MD
[2018-12-09] MEDS: MORPHINE IV PRN ×6 (00:09→23:44)
[2018-12-09] MEDS: ZOSYN 3.375 GM in NS 50 ML IV SCH ×4 (00:56→18:17)
[2018-12-09] MEDS: HUMULIN R SUBQ SCH ×6 (01:00→19:36)
[2018-12-09] MEDS: ATROVENT NEB INH SCH ×6 (03:39→23:35)
[2018-12-09] MEDS: XOPENEX NEB INH SCH ×6 (03:39→23:35)
[2018-12-09 04:28] LABS: ALLEN TEST YES; BE 5.5 mmoll (-3.0-3.0); BLOOD TYPE ARTERIAL; HCO3-(ACT) 29.2 mmoll (20.0-26.0); O2(CT) 12.1 mL/dL (15.0-23.0); O2HB 96.3 % (95.0-99.0); PCO2(98.6) 32 mmHg (35-45); PO2(98.6) 90 mmHg (60-100); SAMPLE BLOOD; SAO2 98.5 % (95.0-100.0); SRATE 10 BPM; THB 8.8 g/dL (11.5-17.4); pH(98.6) 7.55 (7.35-7.45)
[2018-12-09 04:29] LABS: MODALITY BI PAP
[2018-12-09] MEDS: PROTONIX IV SCH ×2 (04:33→16:42)
[2018-12-09] MEDS: HEPARIN SUBQ SCH ×3 (05:28→21:10)
--- NOTE | 2018-12-09 06:14 | GENERAL SURGERY PROGRESS NOTE ---
DATE: 12/09/2018 SUBJECTIVE: Patient was extubated. She is on BiPAP. She is doing okay. Her NG tube was removed. During the whole extubation process, she seems to be doing okay. OBJECTIVE: Vital Signs: Patient is currently afebrile. Her vital signs are stable. General: No acute distress. Cardiovascular: Regular rate and rhythm. Lungs: Some coarse sounds noted. Abdomen: Soft. Appropriately tender. Ostomy appears viable. ISREAL drains with serosanguineous output. LABORATORY: Reviewed ABG. ASSESSMENT AND PLAN: An 78-year-old female currently postoperative day #6 from open Ellis's procedure with small bowel resection. Postoperative state. At this time, continue supportive care. Continue antibiotics. I will continue to monitor while she is in the hospital. She is off the ventilator. She will continue to watch her pulmonary status. We will get the nurses to do a bedside swallow study to see if she is able tolerate any kind of p.o. cc: Noah Chowdhury MD
[2018-12-09 06:34] LABS: PHOSPHORUS 2.5 mg/dL (2.7-4.5); PREALBUMIN 17.1 mg/dL (20-40)
[2018-12-09 06:37] LABS: AGAP 13; ALB/GLOB RATIO 0.6; ALBUMIN 2.7 g/dL (3.5-5.0); ALKALINE PHOSPHATASE 157 U/L (32-104); BUN 21 mg/dL (8-22); CALCIUM 8.4 mg/dL (8.8-10.2); CHLORIDE 100 mmol/L (98-107); COSMO 283; CREATININE 0.5 mg/dL (0.5-0.9); ESTIMATED GFR > 60; GLUCOSE 176 mg/dL (70-104); GOT 24 U/L (10-30); GPT 27 U/L (10-36); SODIUM 138 mmol/L (136-145); TCO2 25 mmol/L (25-35); TOTAL BILIRUBIN 0.53 mg/dL (0.20-1.00)
--- NOTE | 2018-12-09 07:29 | Diag Imaging Result Doc PS360 ---
EXAM: CHEST-PORTABLE INDICATION: ET tube placement TECHNIQUE: One view COMPARISON: 12/08/2018 FINDINGS: There has been interval extubation and removal of the NG tube. The central line is stable. Mild left basilar opacity may be slightly more prominent. This is probably due to a small amount of pleural fluid with adjacent atelectasis. No other new consolidation is identified. IMPRESSION: Slight increase in opacity at the left lung base that probably represents a small pleural effusion with adjacent atelectasis. Electronically signed by Tyron Harper 12/09/2018 7:27 AM
[2018-12-09] MEDS: MYCAMINE 100 MG in NS 100 ML IV SCH (10:36)
[2018-12-09] MEDS: ZYVOX 600 MG/D5W 600 MG/300 ML IVPB IV SCH ×2 (10:40→23:45)
--- NOTE | 2018-12-09 11:00 | INFECTIOUS DISEASE PROGRESS NO ---
DATE: 12/09/2018 PRESENT ILLNESS: The patient has peritonitis secondary to colonic perforation. Her latest x-ray indicates that she does not have any pneumonia but rather that she has bibasilar atelectasis. MEDICATIONS: This is day 9 of treatment with Zosyn and day 2 of treatment with Zyvox and micafungin. PHYSICAL EXAMINATION: Vital Signs: Temperature was 100 degrees, now it is 98, pulse 84, respirations 20, blood pressure 158/69. General: This is an ill-appearing elderly female. She is wearing an oxygen mask. She is in no acute distress. Head, eyes, ears, nose, and throat: She can hear my spoken words and see near objects. She does not have any white coating on her tongue. Neck: The patient has a right-sided internal jugular venous catheter in place. The site is not purulent or tender. Thorax: Patient has an increased AP diameter of the chest. Lungs: Clear to auscultation. Cardiovascular: Heart rate is regular. Abdomen: Soft. It is not tender to light palpation. The incision is intact. The ostomy is functioning and the patient also has 2 drains in the abdomen. Both drain sites are not erythematous or purulent. Neurologic: The patient is alert. She can move her extremities. She is able to talk today in a coherent fashion. LAB AND X-RAY: Chest x-ray today shows a mild left basilar opacity. Has also a small amount of pleural fluid and adjacent atelectasis. The patient does not have a CBC for today. The blood gases show a pH of 7.55, a PO2 of 90, and a pCO2 of 32. The creatinine 0.8, GFR is greater than 60, alkaline phosphatase is 157. Cultures from the patient's abdomen are sterile. ASSESSMENT AND PLAN: The patient's pneumonia I think is clearing up. Her peritonitis I think also is getting better. I am going to continue the current antimicrobial agents, namely Zyvox, micafungin and Zosyn. I am going to go ahead and repeat the CBC for tomorrow. COMORBIDITIES: The patient is elderly. She has chronic obstructive pulmonary disease and diabetes mellitus. cc: Gregory Raymond MD
--- NOTE | 2018-12-09 12:04 | GASTROENTEROLOGY PROGRESS NOTE ---
DATE: 12/09/2018 SUBJECTIVE: Ms. Lee is an 78-year-old female who is resting in bed. She was extubated. She is on a BiPAP currently and her NG tube was removed. She is alert and oriented x2, and is responding well. OBJECTIVE: Vital signs: Temperature 98.5 degrees, pulse is 86, respirations 18, blood pressure is 157/68, oxygen saturation 100% on BiPAP. Her weight is 105.7 pounds. Her BMI is 19.4 kg/m2. General: She is alert, oriented x2. Family at the bedside. On BiPAP. HEENT: Pale conjunctivae. No icterus. PERRL. Neck: Supple. Abdomen: Midline incision. Dressing removed. Jose Alberto dry and intact. Colostomy on the left side with 2 ISREAL drains. Extremities: No cyanosis, clubbing, or edema. 2+ pedal pulses present bilaterally. Neurologic: She is alert, oriented x2. LABORATORY DATA: WBC is 13.79, RBC is 3.23, hemoglobin is 8.2, hematocrit is 26.2, platelet count is 438,000. Her pH is 7.55, pCO2 32, PO2 is 90, HC03 is 29.2. Sodium is 138, potassium 3.0, chloride 100, carbon dioxide 25, anion gap is 13, BUN is 21, creatinine is 0.5. Her glucose is 176, calcium is 8.4, phosphorus 2.5, magnesium 2.0. AST is 24, ALT 27, alkaline phosphatase is 157. Chest x-ray showed slight increase in the opacity at the left lung base that probably represents a small pleural effusion with adjacent atelectasis. IMPRESSION: 1. Acute hypoxia with hypoxic respiratory failure. 2. Malnutrition, status post colectomy. 3. Fecal contamination of the abdominal and peritonitis. 4. Colon perforation. 5. Pneumonia. 6. Chronic obstructive pulmonary disease. 7. History of chronic smoking. 8. Diabetes. 9. Anemia. 10. Gastrointestinal bleed. 11. Electrolyte imbalance. PLAN: Patient has been extubated, a swallow evaluation has been ordered, based on that patient's diet will be ordered. We will continue patient with her GI prophylaxis, Protonix BID. The patient is still receiving her TPN. The patient is on BiPAP currently. Her GI bleed has been improving since post colostomy. Her hemoglobin and hematocrit today was 8.2 and 26.2. We will continue to monitor her CBC and BMP and follow the plan of care per primary care team, Infectious Disease, car mover, and the surgeon. This plan was discussed with Dr. More. Please call us with any further questions or concerns. Dictated by FLORENTIN Lopes for Valentino More MD Physician Attestation I have seen and examined the patient. I have discussed and reviewed the the note by Mony LERMA and agree with findings and plan as documented. Patient admitted with rectal bleed. Course complicated by colonic perforation in setting of colonoscopy s/p ex-lap with sigmoidectomy and end-colostomy with takedown of enterocolonic fistula. She had been extubated. She remains on TPN. Recommend bedside swallow by RN and advancing diet as tolerated. MTDD
[2018-12-09] MEDS: ATIVAN IV PRN ×2 (12:05→19:32)
--- NOTE | 2018-12-09 15:07 | PROGRESS NOTE ---
DATE: 12/09/2018 SUBJECTIVE: This morning Ms. Lee referred to be doing okay. She was back on the BiPAP. She was successfully extubated yesterday. I understand that every now and then she gets panicky, and her saturations goes down, and she needs to go back on the BiPAP. The daughter was at the bedside at the time of the encounter. OBJECTIVE: Vital Signs: Blood pressure 147/64, pulse 95, respirations 14, and temperature 98.5. General: Ms. Lee is an 78-year-old elderly female. She is in bed in no seemingly distress. HEENT: Mucosa is pink and moist. Anicteric. Acyanotic. Neck: Supple. Chest: Good air entry bilaterally. No crepitations. Cardiovascular: Regular rate and rhythm. Abdomen: Soft. There is a well affronted surgical incision in the mid anterior abdominal wall. There is a ISREAL drain on the right side and ostomy on the left which had some greenish fecal material. A Gloria catheter was in place. Extremities: No pedal edema. BUSINESS SERVICES COORDINATOR: Patient was awake, alert, and follows commands. LABORATORY DATA: WBC was 13.79, hemoglobin 8.2, and platelet count of 238,000. There was about 4% of bands on the peripheral smear. Chemistry was also reviewed. Potassium was 3.0. Rest of chemistry was unremarkable. CURRENT MEDICATIONS: Have all been reviewed. She is still on the micafungin, and Zyvox. ASSESSMENT: 1. Septic shock on presentation secondary to peritonitis, improved. 2. Peritonitis with fecal contamination from sigmoid colon perforation. Patient is status post exploratory laparotomy with total toilette of the abdominal cavity, and open sigmoid resection and an end colostomy. This was done by Dr. Chowdhury today, day 6. 3. Acute on chronic hypoxemic respiratory failure after abdominal surgery. The patient was successfully extubated yesterday. She is transitioned to BiPAP cycling with a Venturi mask. 4. Severe COPD. 5. Bibasilar infiltrate concerning for pneumonia. The patient has a history of MRSA in sputum. She has been covered with Zyvox. 6. Protein calorie malnutrition. We will continue with TPN. The patient will be evaluated today by speech, and see if she will be okay to swallow. 7. History of congestive heart failure with ejection fraction of 30%. 8. Transaminitis during the hospital course improved. 9. Hypokalemia. We will replace. cc: Artemio Disla MD MTDD
[2018-12-09] MEDS: POTASSIUM CHLORIDE IV SCH ×9 (16:41)
[2018-12-09] MEDS: [UNRECOGNIZED DRUG - OTHER] IV SCH ×9 (16:41)
[2018-12-09] MEDS: TPN ELECTROLYTES IV SCH ×9 (16:41)
[2018-12-09] MEDS: LIPOSYN 20% 250 ML IV SCH (16:41)
[2018-12-09] MEDS: MAGNESIUM SULFATE IV SCH ×9 (16:41)
[2018-12-09] MEDS: SODIUM CHLORIDE 0.9% INJ SCH (16:42)
[2018-12-09] MEDS ORDERED: LASIX IV ONE (18:28)
--- NOTE | 2018-12-09 23:54 | PULMONOLOGY PROGRESS NOTE ---
DATE: 12/09/2018 SUBJECTIVE: The patient is awake and alert. She is currently off BiPAP, but has been cycling BiPAP p.r.n. She remains on TPN. OBJECTIVE: Vital Signs: The patient's maximum temperature in the last 24 hours is 100.1 degrees. Blood pressure 150/65, heart rate 88, respiratory rate 22. HEENT: Pupils are equal and reactive. Oropharynx appears clear. Neck: Supple. Chest: Reveals occasional rhonchi with incomplete clearing after a cough, which appears marginal. Cardiac: S1, S2. Abdomen: Soft with positive bowel sounds present. Extremities: Reveal trace edema. LABORATORIES: Sodium 138, potassium 3.0, chloride 100, bicarbonate 25, BUN 21, creatinine 0.5. Chest x-ray reveals small effusion with atelectasis at the right base. Arterial blood gas reveals pH 7.55, pCO2 of 32, PO2 of 90. IMPRESSION: An 78-year-old with 1. Acute hypoxemic respiratory failure. 2. Chronic hypoxemic respiratory failure. 3. Severe chronic obstructive pulmonary disease. 4. Small basilar effusions/infiltrate. 5. Iatrogenic colonic perforation status post surgical repair. 6. Protein calorie malnutrition. 7. Diabetes mellitus. 8. Peritonitis. DISCUSSION: The patient has been successfully extubated. Her pulmonary status is marginal. We will need to aggressively encourage incentive spirometry and bronchial hygiene. We will continue to cycle her BiPAP as necessary. Her overall prognosis remains guarded. PLAN: 1. Bronchial hygiene as outlined above. 2. Continue to cycle BiPAP. 3. Continue TPN pending improvement in p.o. intake. 4. Continue DVT prophylaxis. cc: Daniel Rodriguez MD
[2018-12-10] MEDS: HUMULIN R SUBQ SCH ×6 (02:13→19:40)
[2018-12-10] MEDS: ZOSYN 3.375 GM in NS 50 ML IV SCH ×4 (02:22→18:49)
[2018-12-10] MEDS: ATIVAN IV PRN ×4 (02:42→21:50)
[2018-12-10] MEDS: XOPENEX NEB INH SCH ×6 (03:23→23:23)
[2018-12-10] MEDS: ATROVENT NEB INH SCH ×6 (03:23→23:23)
[2018-12-10 04:28] LABS: ALLEN TEST YES; BE 7.5 mmoll (-3.0-3.0); BLOOD TYPE ARTERIAL; HCO3-(ACT) 30.8 mmoll (20.0-26.0); MODALITY BI PAP; O2(CT) 13.1 mL/dL (15.0-23.0); PCO2(98.6) 39 mmHg (35-45); PO2(98.6) 172 mmHg (60-100); SAMPLE BLOOD; SAO2 98.9 % (95.0-100.0); THB 9.3 g/dL (11.5-17.4); pH(98.6) 7.51 (7.35-7.45)
[2018-12-10] MEDS: PROTONIX IV SCH (04:29)
[2018-12-10] MEDS: SODIUM CHLORIDE 0.9% INJ SCH (04:30)
--- NOTE | 2018-12-10 06:06 | GENERAL SURGERY PROGRESS NOTE ---
DATE: 12/10/2018 SUBJECTIVE: Patient seems to be doing okay. Nursing staff reports no major issues. She is still extubated. OBJECTIVE: Vital Signs: Patient is currently afebrile. Her vital signs stable. General: No acute distress. Cardiovascular: Regular rate and rhythm. Lungs: Grossly clear. Abdomen: Soft and appropriately tender. Incision is healing well. ISREAL drains in place with serosanguineous output. Ostomy with some scant output. LABORATORY: ABG reviewed. ASSESSMENT AND PLAN: An 78-year-old female currently postoperative day #7 from open Weinstein's procedure with small bowel resection. Postoperative state at this time. Patient seems to be doing okay. We will await speech therapy evaluation for swallow studies to potentially start her on some oral intake. Her respiratory status is still somewhat tenuous. Would like to keep her in the ICU. We will continue supportive care. cc: Noah Chowdhury MD
[2018-12-10] MEDS: HEPARIN SUBQ SCH ×3 (06:07→21:50)
[2018-12-10 06:19] LABS: BASO# 0.04 X1000 (0.0-0.2); BASO% 0.2 % (0.0-0.8); EOS% 1.2 % (0.0-10.0); HEMATOCRIT 28.2 % (37.0-47.0); HEMOGLOBIN 8.5 g/dL (12.0-16.0); IMM GRAN% 0.6 % (0.0-0.5); LYMPH# 1.69 X1000 (1.2-3.4); LYMPH% 10.2 % (20.5-51.1); MCH 24.8 PG (27-31); MCHC 30.1 g/dL (33-37); MCV 82.2 FL (81-99); MPV 10.2 FL (7.4-10.4); NEUT# 13.51 X1000 (1.4-6.5); NEUT% 81.8 % (42.2-75.2); PLT 590 X1000 (130-400); RBC 3.43 XMIL (4.2-5.4); RDW 23.9 % (11.5-14.5); WBC 16.54 X1000 (4.8-10.8)
[2018-12-10 06:34] LABS: AGAP 11; ALB/GLOB RATIO 0.6; ALBUMIN 2.5 g/dL (3.5-5.0); ALKALINE PHOSPHATASE 145 U/L (32-104); BUN 24 mg/dL (8-22); CALCIUM 7.9 mg/dL (8.8-10.2); CHLORIDE 97 mmol/L (98-107); COSMO 279; CREATININE 0.5 mg/dL (0.5-0.9); ESTIMATED GFR > 60; GLUCOSE 157 mg/dL (70-104); GOT 21 U/L (10-30); GPT 21 U/L (10-36); SODIUM 136 mmol/L (136-145); TCO2 28 mmol/L (25-35); TOTAL BILIRUBIN 0.42 mg/dL (0.20-1.00); TOTAL PROTEIN 6.8 g/dL (6.3-8.3)
[2018-12-10 06:36] LABS: MAGNESIUM 1.9 mg/dL (1.5-2.7); PREALBUMIN 18.6 mg/dL (20-40)
--- NOTE | 2018-12-10 06:41 | Diag Imaging Result Doc PS360 ---
CHEST-PORTABLE - 12/10/2018 INDICATION: ET tube placement COMPARISON: 12/09/2018 FINDINGS: Stable right internal jugular central line. There is probably some worsening collapse in the left lower lobe with opacification and volume loss. There is overall improvement in the pulmonary vascular congestion and hazy pulmonary edema. IMPRESSION: Mixed changes from prior. Worsening left lower lobe collapse. Electronically signed by Dallin Santiago 12/10/2018 6:39 AM
[2018-12-10] MEDS: MORPHINE IV PRN ×4 (08:46→19:52)
[2018-12-10] MEDS ORDERED: MAGNESIUM SULFATE 2 GM/S.W.I. 2 GM/50 ML IVPB IV ONE (10:02)
--- NOTE | 2018-12-10 10:21 | PROGRESS NOTE ---
DATE: 12/10/2018 SUBJECTIVE: This morning, Ms. Lee refers to be doing well. The daughter and the son were at the bedside at the time of the encounter. Ms. Lee has been off the BiPAP since early this morning, and she seems to be tolerating the Venturi mask well. She is saturating above 95%. OBJECTIVE: Current Vital Signs: blood pressure is 153/65, pulse of 90, respirations 22, temperature was 98.3 degrees early this morning. General: Ms. Lee is an 78-year-old, elderly, female. She was in bed, not seemingly distressed. HEENT: Mucosa is pink and moist. Anicteric. Acyanotic. Neck: Supple. No JVD. There is a right IJ central line in place. Respiratory: There is good air entry bilaterally. There are no crepitations, no rhonchi. Cardiovascular: Regular rate and rhythm. No murmurs, no rubs, no gallops. GI: Abdomen was soft. There is a well-affronted surgical incision in the mid anterior abdominal wall. There is a ISREAL drain on the right side, and an ostomy on the left, which has some greenish fecal material. : Gloria catheter is in place. Extremities: No pedal edema. ABALONE PROCESSOR: The patient is awake, alert, oriented. LABORATORY DATA: WBC is slightly up to 16.54, hemoglobin is 8.5, platelet count of 590,000. Chemistry is also reviewed. Potassium is 3.0. Rest of chemistry is unremarkable. The patient's magnesium and phosphorus are within normal range. So far, abdomen culture has been no growth, as well as blood cultures have been no growth. ASSESSMENT: 1. Septic shock on presentation secondary to peritonitis, improved. 2. Peritonitis with fecal contamination from sigmoid colon perforation. The patient is status post exploratory laparotomy with open sigmoid resection and an end colostomy. Today is day 6. 3. Acute on chronic hypoxemic respiratory failure after abdominal surgery. The patient was successfully extubated. Today is day 2 post extubation. She was transitioned to bilevel positive airway pressure. She used that for most of yesterday. This morning, she was on Venturi mask. 4. Severe chronic obstructive pulmonary disease. Noted. 5. Bibasilar infiltrate concerning for pneumonia. The patient does have a history of methicillin- resistant staphylococcus aureus pneumonia in the past. She is currently being covered on Zyvox. A chest x-ray this morning shows mild worsening of the left lower lobe collapse. 6. Protein calorie malnutrition. The patient is on total parenteral nutrition. She is pending evaluation by Speech. 7. History of congestive heart failure with ejection fraction of 30%, currently euvolemic. 8. Transaminitis during the hospital course, presumably a combination of ischemic liver and medication-induced. Liver enzymes have normalized. 9. Hypokalemia. Will continue to replace. In general, I think Ms. Lee is doing well, gradually getting better. She is off the bilevel positive airway pressure this morning. She expressed the willingness to wanting to eat something, so we are waiting for swallow evaluation, and start her on some diet. Ms. Lee continues to be on triple antimicrobial coverage. Infectious Disease is on board. cc: Artemoi Disla MD
[2018-12-10] MEDS: MYCAMINE 100 MG in NS 100 ML IV SCH (10:44)
[2018-12-10] MEDS: ZYVOX 600 MG/D5W 600 MG/300 ML IVPB IV SCH ×2 (11:48→22:52)
--- NOTE | 2018-12-10 11:51 | GASTROENTEROLOGY PROGRESS NOTE ---
DATE: 12/10/2018 SUBJECTIVE: Ms. Lee is an 78-year-old female who is resting in bed. She is on BiPAP and responding fairly well. She is slowly improving. Family at bedside. No GI bleeding reported. Patient is scheduled for swallow evaluation today. OBJECTIVE: Vital Signs: Temperature 98.0 degrees, pulse is 90, respirations 22, blood pressure 153/55, oxygen saturation is 94% on BiPAP. Her weight is 106 pounds. Her BMI is 19.6 kg/m2. General: She is alert, oriented x2, lying in bed, and is on BiPAP. HEENT: Pale conjunctivae. No icterus. PERRL. Neck: Supple. Abdomen: Midline healing incision noted. Dressing is removed. [place] dry and intact. Colostomy on the left side of the abdomen with two ISREAL drains. Extremities: No cyanosis, clubbing, or edema. 2+ distal pulses present bilaterally. Neurologic: She is alert, oriented x2. Labs: WBCs 16.54, RBCs 3.43, hemoglobin 8.5, hematocrit is 28.2, platelet count is 590,000. Blood gases: Her pH is 7.51, pCO2 is 39, PO2 is 172, HC03 is 30.8. Sodium is 136, potassium 3.0, chloride is 97, carbon dioxide 28, anion gap is 11, BUN is 24, creatinine is 0.5, glucose is 157, calcium 7.9, magnesium is 1.9. AST 21, ALT is 21, alkaline phosphatase is 145, albumin is 2.5. Chest x-ray showed mixed changes from prior, worsening left lower lobe collapse. Culture from the abdomen showed no growth. IMPRESSION: 1. Acute hypoxia with hypoxic respiratory failure. 2. Malnutrition, status post colectomy and colostomy placement. 3. Fecal contamination of the abdomen and peritonitis. 4. Colon perforation. 5. Pneumonia. 6. Chronic obstructive pulmonary disease. 7. History of chronic smoking. 8. Diabetes. 9. Anemia. 10. Gastrointestinal bleed. 11. Electrolyte imbalance. PLAN: The patient is currently on BiPAP. She is currently being weaned down per Pulmonary team. She is responding fairly well. She is alert, oriented x2. We will continue with her GI prophylaxis, Protonix once a day. She is still on TPN for her nutrition. We are waiting for the swallow evaluation report. The patient's hemoglobin was 8.5 and hematocrit is 28.2. It has started to trend up. We will continue to monitor her and continue to follow the plan of care per primary care team, infectious disease, cushion padder, and the surgeon. This plan was discussed with Dr. Davis. Please call us for any further questions or concerns. Dictated by FLORENTIN Lopes for Haroon Davis MD cc: Haroon Davis MD I have seen and examined the patient myself and I agree with the above plan of care. The above plan was discussed with the patient and family at bedside and all questions were answered. Please call us with any further questions. STONEY
[2018-12-10] MEDS: POTASSIUM CHLORIDE 20 MEQ/SWI 20 MEQ/100 ML IVPB IV SCH ×2 (12:36→14:32)
--- NOTE | 2018-12-10 12:51 | INFECTIOUS DISEASE PROGRESS NO ---
DATE: 12/10/2018 PRESENT ILLNESS: Ms. Lee is being treated for peritonitis secondary to colonic perforation. She is status post exploratory laparoscopy with small bowel resection and end colostomy. MEDICATIONS: She is receiving Zyvox 600 mg IV every 12 hours, micafungin 100 mg IV every 24 hours, Zosyn 3.375 g IV every 6 hours. PHYSICAL EXAMINATION: Vital Signs: Her temperature is 98.3 degrees, pulse rate 90, respiratory rate 22, blood pressure 153/65. O2 saturation is 99% on 98% FiO2 on cool aerosol face mask. General: This is a chronically ill-appearing, elderly female. She is lying in bed, currently in no acute distress. HEENT: Atraumatic, normocephalic. Oral mucous membranes are pink and moist. Conjunctivae are pale. Neck: Supple. Trachea is midline. Respiratory: Lung sounds are clear to auscultation in the upper lobes. Diminished in the bases. She is tachypneic. Cardiovascular: Heart rate and underlying rhythm irregular with sinus rhythm on the monitor with frequent ectopy. Abdomen: Soft, round, and tender to palpation. Bowel sounds are audible. The midline abdominal incision has thu intact. There is a mild amount of pink noted to the skin on the lower end of the incision. There is a colostomy bag in place with some green drainage noted in the bag. The stoma is pink and budded. There are ISREAL drains to the abdomen draining serosanguineous fluid. Neurologic: She is awake, alert, and appropriate. Able to follow commands. Integumentary: There is a central line in place to the right intrajugular site without edema, erythema, or drainage. LABORATORY AND X-RAY: Today, her white count is 16.54. Hemoglobin 8.5, platelet count 590,000, on a 60% BiPAP this morning. Her pH is 7.51, pCO2 39, PO2 172, HCO3 30.8, creatinine 0.5, estimated GFR is greater than 60. Total bilirubin is 0.42, her AST 21, ALT 21, alkaline phosphatase 145. Chest x-ray this morning shows worsening left lower lobe collapse but improvement in the pulmonary vascular congestion and pulmonary edema. ASSESSMENT AND PLAN: Ms. Olivarez is being treated for peritonitis using broad- spectrum coverage with Zyvox, Zosyn and micafungin which we will continue. Blood work has already been ordered for the morning as well as a chest x-ray. It does not appear there is a pneumonia on the chest x-ray. Instead this looks like atelectasis and some collapse on the left. There is a leukocytosis which we will continue to follow. These plans have been discussed with and recommended by Dr. Raymond. COMORBIDITIES: For Ms. Lee include that she is elderly with COPD and diabetes mellitus. Dictated by FLORENTIN Vickers for Gregory Raymond MD cc: Gregory Raymond MD MTDD
[2018-12-10] MEDS: LIPOSYN 20% 250 ML IV SCH (16:46)
[2018-12-10] MEDS: POTASSIUM CHLORIDE IV SCH ×9 (17:22)
[2018-12-10] MEDS: TPN ELECTROLYTES IV SCH ×9 (17:22)
[2018-12-10] MEDS: MAGNESIUM SULFATE IV SCH ×9 (17:22)
[2018-12-10] MEDS: [UNRECOGNIZED DRUG - OTHER] IV SCH ×9 (17:22)
[2018-12-10] MEDS: NORCO-10 PO PRN (17:53)
--- NOTE | 2018-12-10 21:12 | PULMONOLOGY PROGRESS NOTE ---
DATE: 12/10/2018 SUBJECTIVE: The patient is arousable. She appears to be comfortable. She does have some cough with sputum production but no increased work of breathing. OBJECTIVE: Vital Signs: The patient has been afebrile for the last 24 hours. Blood pressure 122/59, heart rate 93, respiratory rate 24, oxygen saturation 100%. HEENT: Pupils are equal and reactive. Oropharynx appears clear. Neck: Supple. Chest: Reveals decreased breath sounds left base. Cardiac exam: S1, S2. Abdomen: Soft with positive bowel sounds present. Extremities: Without edema. LABORATORIES: Chest x-ray reveals some increased atelectasis left base with some decrease in vascular congestion. White blood count 16.54, hemoglobin 8.5, platelet count 590,000. Arterial blood gas on BiPAP: PH 7.51, pCO2 of 39, pO2 of 172. IMPRESSION: An 78-year-old with: 1. Acute hypoxemic respiratory failure. 2. Chronic hypoxemic respiratory failure. 3. Severe chronic obstructive pulmonary disease. 4. Fluctuating infiltrates on chest x-ray with small effusions. 5. Iatrogenic colonic perforation status post surgical repair. 6. Diabetes mellitus. 7. Protein calorie malnutrition. DISCUSSION: An 78-year-old with problems outlined above. She has been successfully extubated, but her pulmonary status remains marginal. She will continue to need aggressive bronchial hygiene. PLAN: 1. Continue bronchial hygiene. 2. Cycle BiPAP. 3. Transition TPN off as p.o. intake improves. 4. Continue DVT prophylaxis. cc: Daniel Rodriguez MD
[2018-12-11] MEDS: HUMULIN R SUBQ SCH ×5 (00:38→16:50)
[2018-12-11] MEDS: ZOSYN 3.375 GM in NS 50 ML IV SCH ×2 (00:39→06:28)
[2018-12-11] MEDS: NORCO-10 PO PRN ×6 (00:58→22:03)
[2018-12-11] MEDS: ATIVAN IV PRN ×3 (02:25→18:46)
[2018-12-11] MEDS: MORPHINE IV PRN ×4 (02:50→23:41)
[2018-12-11] MEDS: ATROVENT NEB INH SCH ×6 (03:17→23:16)
[2018-12-11] MEDS: XOPENEX NEB INH SCH ×6 (03:17→23:16)
[2018-12-11 04:36] LABS: ALLEN TEST YES; BLOOD TYPE ARTERIAL; HCO3-(ACT) 29.6 mmoll (20.0-26.0); METHB 0.8 % (0.0-1.5); O2(CT) 12.4 mL/dL (15.0-23.0); O2HB 96.5 % (95.0-99.0); PCO2(98.6) 44 mmHg (35-45); PO2(98.6) 113 mmHg (60-100); SAMPLE BLOOD; SAO2 98.4 % (95.0-100.0); pH(98.6) 7.45 (7.35-7.45)
[2018-12-11 04:37] LABS: MODALITY COOL AEROSOL
[2018-12-11] MEDS: HEPARIN SUBQ SCH ×3 (05:34→23:08)
[2018-12-11 06:14] LABS: MAGNESIUM 2.2 mg/dL (1.5-2.7); PHOSPHORUS 3.2 mg/dL (2.7-4.5)
[2018-12-11 06:23] LABS: AGAP 10; ALB/GLOB RATIO 0.7; ALBUMIN 2.5 g/dL (3.5-5.0); ALKALINE PHOSPHATASE 152 U/L (32-104); BUN 28 mg/dL (8-22); CALCIUM 8.4 mg/dL (8.8-10.2); CHLORIDE 98 mmol/L (98-107); COSMO 279; CREATININE 0.4 mg/dL (0.5-0.9); ESTIMATED GFR > 60; GLUCOSE 118 mg/dL (70-104); GOT 27 U/L (10-30); GPT 24 U/L (10-36); POTASSIUM 3.6 mmol/L (3.5-5.1); SODIUM 136 mmol/L (136-145); TCO2 28 mmol/L (25-35); TOTAL BILIRUBIN 0.42 mg/dL (0.20-1.00); TOTAL PROTEIN 6.3 g/dL (6.3-8.3)
--- NOTE | 2018-12-11 06:44 | GENERAL SURGERY PROGRESS NOTE ---
DATE: 12/11/2018 SUBJECTIVE: Patient passed her swallow study and has been started on pureed thickened. She has complained of some abdominal pain, but otherwise she has been doing okay. The nursing staff has no major issues. OBJECTIVE: Vital Signs: Patient is currently afebrile. Vital signs are stable. General: No acute distress. Cardiovascular: Regular rate and rhythm. Lungs: Some coarse sounds noted. Abdomen: Soft, appropriately tender. Ostomy appears viable. ISREAL drain is with serosanguineous output. ASSESSMENT AND PLAN: An 78-year-old female currently postoperative day number 8 from open Ellis's procedure with small bowel resection. Postoperative state. At this time continue supportive care. Continue to monitor. No new changes. cc: Noah Chowdhury MD
--- NOTE | 2018-12-11 07:08 | Diag Imaging Result Doc PS360 ---
EXAM: CHEST-PORTABLE 12/11/2018 HISTORY: ET tube placement TECHNIQUE: AP portable at 0526 COMMENT: There is a right internal jugular central venous catheter with its tip in the superior vena cava. The inspiration is less optimal than on 12/10/2018. There continues to be opacification and volume loss in the left lower lobe. IMPRESSION: Atelectasis versus pneumonia in the left lower lobe. No endotracheal tube is visible. Electronically signed by Sher Michelle 12/11/2018 7:05 AM
--- NOTE | 2018-12-11 10:13 | INFECTIOUS DISEASE PROGRESS NO ---
DATE: 12/11/2018 PRESENT ILLNESS: The patient has peritonitis secondary to colonic perforation. She does have on her latest chest x-ray left lower lobe pneumonia versus atelectasis. MEDICATIONS: This is day 11 with Zosyn and day 4 with Zyvox and micafungin. PHYSICAL EXAMINATION: Vital Signs: Temperature is 98.2 degrees, pulse 92, respirations 19, blood pressure 132/59. General: This is an ill-appearing elderly female. She is in no acute distress. Head/eyes/ears/nose/throat: She can hear my spoken words and see near objects. She does not have any white patches on her mouth. Neck: The patient has an internal jugular venous catheter in place. The site is not erythematous or purulent. Lungs: Clear to auscultation. Cardiovascular: Heart rate is regular. Abdomen: Soft. It is not tender. There is a midline incision which is intact. The patient's ostomy is functioning. The patient has [address] The drain sites are not erythematous or purulent either. Neurologic: The patient is alert. She can move her extremities. She can talk in a coherent fashion. LAB AND X-RAY: Chest x-ray shows left lower lobe atelectasis versus pneumonia. The patient's CBC shows a white count of 16,540, hemoglobin 8.5 and platelet count 590,000. The patient's blood gases show a pH of 7.45, a PO2 of 113 and a pCO2 of 44. The creatinine is 0.4. GFR is greater than 60. ASSESSMENT AND PLAN: The patient could have pneumonia versus atelectasis. I think with all the treatments that the patient has had with antibiotics that her peritonitis is clearing up and it may be completely cleared up. The white blood cell count continues to be elevated, however. My plan now is to discontinue Zosyn since this patient has been on it for 11 days and continue with Zyvox and micafungin pending further studies. If the patient should continue to have an increasing white blood cell count or if the patient should start having fever or chills or on x- ray it looks like she is developing a pneumonia, I would suggest adding meropenem. COMORBIDITIES: The patient is elderly and she has chronic obstructive pulmonary disease and diabetes. cc: Gregory Raymond MD
[2018-12-11] MEDS: PROTONIX IV SCH (11:20)
[2018-12-11] MEDS: SODIUM CHLORIDE 0.9% INJ SCH (11:20)
[2018-12-11] MEDS: MYCAMINE 100 MG in NS 100 ML IV SCH (11:20)
[2018-12-11] MEDS: ZYVOX 600 MG/D5W 600 MG/300 ML IVPB IV SCH ×2 (11:20→23:09)
--- NOTE | 2018-12-11 11:55 | PROGRESS NOTE ---
DATE: 12/11/2018 SUBJECTIVE: This morning, Ms. Lee refers to be doing a lot better. I understand she did not use the BiPAP last night. OBJECTIVE: Vital Signs: Current vitals are blood pressure 132/59, pulse of 92, respirations 19, temperature is 98.5 degrees. General: Ms. Lee is an 78-year-old elderly female. She is in bed, no distress. Mucosa is pink and moist. Anicteric. Acyanotic. Neck: Supple. There is a right IJ central line. Respiratory: There is good air entry bilaterally. No crepitations. No rhonchi. Cardiovascular: Regular rate and rhythm. No murmurs, no rubs, no gallops. Abdomen: Soft. There is a well affronted surgical incision in the mid anterior abdominal wall. There is a ISREAL drain on the right side. There is an ostomy on the left side. This morning it was clear. Genitourinary: There is a Gloria catheter in place. Extremities: No pedal edema. HARDWARE INSTALLER: Patient is awake, alert, oriented. I'S AND O'S: Fecal output has not been documented. Urine output was about 2775. A ISREAL drain was about 30 last night. The patient just had bites of her dinner and breakfast this morning. She is total positive balance of about 8000 during the hospital course. LABORATORY DATA: The chemistry is reviewed. Potassium is up to 3.6. Rest of chemistry is unremarkable. ASSESSMENT: 1. Septic shock secondary to peritonitis, resolved. 2. Peritonitis with fecal contamination from sigmoid colon perforation. Patient is status post exploratory laparotomy with open sigmoid resection and an end colostomy. Today is day 7. She seems to be doing remarkably well. 3. Acute on chronic hypoxemic respiratory failure after abdominal surgery. The patient is day 3 post extubation. She is currently just cycling between Venturi mask and nasal cannula. 4. Severe chronic obstructive pulmonary disease noted. 5. Bibasilar infiltrate concerning for pneumonia. Patient is on antimicrobial coverage including Zyvox and micafungin. Zosyn has been discontinued. 6. Protein calorie malnutrition. Patient continues to be on very low flow all of TPN. She has been started on pureed diet per swallow evaluation suggestions. 7. History of systolic dysfunction with ejection fraction of 30%, currently euvolemic. 8. Transaminitis during the hospital course, resolved. 9. Hypokalemia, improved. PLAN: So in general, I think Ms. Lee is doing a whole lot better. We are going to discontinue the Gloria catheter today. We will encourage that we get her to a bedside chair twice per day. Physical therapy has been consulted and we hope that she starts getting some therapy. Ms. Lee is being transferred from the ICU to surgical floor today. cc: Artemio Disla MD
--- NOTE | 2018-12-11 13:23 | GASTROENTEROLOGY PROGRESS NOTE ---
DATE: 12/11/2018 Ms. Lee is an 78-year-old female, resting in bed. She has been responding fairly well. Family at the bedside. No GI bleed noted. OBJECTIVE: Vital Signs: Temperature 98.2 degrees, pulse 96, respirations 21, blood pressure is 132/59, oxygen saturation is 100% on 2 L nasal cannula. The patient's weight is 107 pounds. BMI is 19.6 kg/m2. General: She is alert, oriented x2, resting in bed. HEENT: Pale conjunctivae. No icterus. PERRL. Neck: Supple. Abdomen: Mildly distended, tender, midline incisions. Dressing is removed. Jose Alberto are intact, Colostomy on the left side of the abdomen with 2 ISREAL drains. Extremities: No cyanosis, clubbing, or edema. 2+ pedal pulses present bilaterally. Neurologic: Alert, oriented x2. IMAGING AND LABORATORY DATA: WBCs 16.54, RBC 3.43, hemoglobin is 8.5, hematocrit is 28.2, platelet count is 190,000, sodium 136, potassium 3.6, chloride 98, carbon dioxide 28, anion gap is 9, BUN is 28, creatinine is 0.4. Chest x-ray shows atelectasis versus pneumonia of the left lower lobe. The patient had a swallow evaluation and it is recommended that she has pureed diet with nectar thick liquids and aspiration precautions. IMPRESSION AND PLAN: Acute hypoxia with hypoxic respiratory failure Malnutrition Status post colectomy and colostomy placement Fecal contamination of abdomen Peritonitis Colon perforation Pneumonia COPD Anemia GI bleed Hx of smoking Diabetes PLAN: We will continue to follow the current plan of care, she is still on TPN and lipids for her nutrition. She is on a pureed diet, but has not been tolerating it well. We will continue with GI prophylaxis, Protonix IV daily. She is on antibiotic Zyvox per Infectious Disease team. Her hemoglobin and hematocrit today was 8.5 and 28.2, which has been trending upward, will continue to monitor her CBC, BMP and follow the plan of care per PCP, infectious disease, dynamic balancer set up worker, and the surgeon. This plan was discussed with Dr. More. Please call us for any further questions or concerns. Dictated by FLORENTIN Lopes for Valentino More MD Physician Attestation I have seen and examined the patient. I have discussed and reviewed the the note by Mony LERMA and agree with findings and plan as documented. In brief, Ms. Hortensia Lee is a 78 year old woman admitted with rectal bleeding likely diverticular. Her course complicated colonic perforation with peritonitis in setting of colonoscopy s/p ex-lap with sigmoidectomy, end-colostomy, and takedown of enterocolonic fistula, pneumonia, and hypoxic respiratory failure s/p extubation. She remains on TPN with poor PO intake. She complains of abdominal pain. Recommend continue post-operative care, PT evaluation, OOB, and encourage PO intake. MTDD
[2018-12-11] MEDS: LIPOSYN 20% 250 ML IV SCH (17:19)
[2018-12-11] MEDS: MAGNESIUM SULFATE IV SCH ×9 (17:19)
[2018-12-11] MEDS: [UNRECOGNIZED DRUG - OTHER] IV SCH ×9 (17:19)
[2018-12-11] MEDS: POTASSIUM CHLORIDE IV SCH ×9 (17:19)
[2018-12-11] MEDS: TPN ELECTROLYTES IV SCH ×9 (17:19)
[2018-12-12] MEDS: NORCO-10 PO PRN ×5 (02:26→18:38)
[2018-12-12] MEDS: ATIVAN IV PRN (02:33)
[2018-12-12] MEDS: ATROVENT NEB INH SCH ×6 (03:25→23:31)
[2018-12-12] MEDS: XOPENEX NEB INH SCH ×6 (03:25→23:31)
[2018-12-12 03:36] LABS: ALLEN TEST YES; BLOOD TYPE ARTERIAL; MODALITY CANNULA; O2(CT) 11.5 mL/dL (15.0-23.0); O2HB 94.3 % (95.0-99.0); PCO2(98.6) 35 mmHg (35-45); PO2(98.6) 70 mmHg (60-100); SAMPLE BLOOD; SAO2 96.5 % (95.0-100.0); THB 8.6 g/dL (11.5-17.4)
[2018-12-12] MEDS: MORPHINE IV PRN ×6 (04:41→20:28)
[2018-12-12] MEDS: HEPARIN SUBQ SCH ×3 (06:00→20:27)
--- NOTE | 2018-12-12 06:34 | Diag Imaging Result Doc PS360 ---
EXAM: CHEST-PORTABLE HISTORY: ET tube placement TECHNIQUE: Chest single view COMPARISON: 12/11/2018 FINDINGS: The lungs are well expanded. The heart is borderline mildly prominent. A right jugular line in good position. No pneumothorax. There is pulmonary edema. Trace pleural fluid. Atelectasis versus small infiltrate in the left lung base. IMPRESSION: No interval improvement Electronically signed by Kofi Nolasco 12/12/2018 6:32 AM
[2018-12-12] MEDS: HUMULIN R SUBQ SCH ×6 (06:48→20:00)
[2018-12-12 07:19] LABS: PHOSPHORUS 2.5 mg/dL (2.7-4.5)
[2018-12-12 07:21] LABS: AGAP 10; ALB/GLOB RATIO 0.6; ALBUMIN 2.6 g/dL (3.5-5.0); ALKALINE PHOSPHATASE 140 U/L (32-104); BUN 22 mg/dL (8-22); CALCIUM 8.4 mg/dL (8.8-10.2); CHLORIDE 101 mmol/L (98-107); COSMO 275; CREATININE 0.4 mg/dL (0.5-0.9); ESTIMATED GFR > 60; GLUCOSE 126 mg/dL (70-104); GOT 19 U/L (10-30); GPT 19 U/L (10-36); POTASSIUM 3.9 mmol/L (3.5-5.1); SODIUM 135 mmol/L (136-145); TCO2 24 mmol/L (25-35); TOTAL BILIRUBIN 0.36 mg/dL (0.20-1.00); TOTAL PROTEIN 6.7 g/dL (6.3-8.3)
[2018-12-12] MEDS: PROTONIX IV SCH (08:19)
[2018-12-12 10:20] LABS: BASO# 0.08 X1000 (0.0-0.2); BASO% 0.6 % (0.0-0.8); HEMATOCRIT 27.7 % (37.0-47.0); HEMOGLOBIN 8.3 g/dL (12.0-16.0); IMM GRAN# 0.05 X1000 (0.0-0.04); IMM GRAN% 0.4 % (0.0-0.5); LYMPH# 1.74 X1000 (1.2-3.4); MCH 25.4 PG (27-31); MCV 84.7 FL (81-99); MONO# 0.61 X1000 (0.11-0.59); MONO% 4.6 % (1.7-9.3); MPV 10.2 FL (7.4-10.4); NEUT# 10.52 X1000 (1.4-6.5); NEUT% 78.4 % (42.2-75.2); PLT 678 X1000 (130-400); RBC 3.27 XMIL (4.2-5.4); RDW 24.7 % (11.5-14.5)
[2018-12-12] MEDS ORDERED: LASIX IV ONE (10:50)
--- NOTE | 2018-12-12 11:08 | PROGRESS NOTE ---
DATE: 12/12/2018 SUBJECTIVE: This morning Ms. Lee refers to be in a lot of pain in her abdomen. Per the nursing staff, her ostomy bag has not been changed since yesterday and this morning continues to look empty. OBJECTIVE: Vital signs: Blood pressure is 140/61, pulse of 115, respiration is 18, temperature 98.9 degrees. Patient was saturating 96% on 3 L. General: Ms. Lee 78-year-old female. She is in bed. She seems to be in mild painful distress. HEENT: Mucosa is pink and moist. Anicteric. Acyanotic. Neck: Supple. Chest: Good air entry bilateral. There was no crepitations no rhonchi. Cardiovascular: Regular rate and rhythm. No murmurs, no rubs, no gallops. GI: Abdomen is soft, tender with peritoneal reaction. There is a well affronted midline surgical incision. The mid part looks slightly more erythematous along the surgical line. There are [address], both of which is draining some serous yellowish peritoneal fluid. The ostomy on the left side is completely empty. Extremities: No pedal edema. 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 I'S AND O'S: Urine output was about 365. She is still currently positive balance. ASSESSMENT: 1. Septic shock secondary to peritonitis, which has improved. 2. Peritonitis with fecal contamination from sigmoid colon perforation. Patient is status post exploratory laparotomy with open sigmoid resection and end colostomy. Today is day 8. This morning she seems to be remarkably more painful with some peritoneal reaction. Her ostomy has not put out anything. We are going to rescan her abdomen to rule out any ongoing acute pathology. 3. Acute on chronic hypoxemic respiratory failure after abdominal surgery. The patient is day 4 post extubation. She is currently on nasal cannula. She is doing well. 4. Severe chronic obstructive pulmonary disease not in exacerbation. 5. Bibasilar infiltrate concerning for pneumonia patient is on Zyvox. 6. Protein calorie malnutrition. We will continue with supplementation. 7. Systolic dysfunction with ejection fraction of 30% currently euvolemic. PLAN: In general, I think Ms. Olivarez is clinically stable. However this morning she has not had any output in her ostomy and she is having some abdominal pain with peritoneal reaction. We are going to continue with the current antimicrobial coverage and we will rescan her abdomen and follow up with the results. cc: Artemio Disla MD
[2018-12-12] MEDS: MYCAMINE 100 MG in NS 100 ML IV SCH (11:21)
[2018-12-12] MEDS: ZYVOX 600 MG/D5W 600 MG/300 ML IVPB IV SCH ×2 (12:44→22:33)
--- NOTE | 2018-12-12 14:46 | Diag Imaging Result Doc PS360 ---
EXAM: CT ABD/PELVIS W/IV CONT ONLY HISTORY: abdomen pain. recent surgery TECHNIQUE: CT abdomen and pelvis with intravenous contrast COMPARISON: 12/03/2018 FINDINGS: Interval decrease in the size of the small bilateral pleural effusions. There are bilateral lower lobe infiltrates with air bronchograms on the current exam. The heart is not enlarged. Sludge or noncalcified stones within the gallbladder. No adjacent inflammation. 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 Normal liver. 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 Normal kidneys. There are scattered pancreatic calcifications. No pseudocyst. Severe atherosclerosis. There is a distal abdominal aortic aneurysm measuring 3.5 cm. There are multiple midline skin thu. There is an ostomy in the left lower quadrant. Several surgical drains. Air and fluid distended bowel loops. Urinary bladder is overly distended. The uterus has been removed. IMPRESSION: 1.Ileus 2.Bilateral lower lobe pneumonia with small pleural effusions and cardiomegaly 3.Cholelithiasis 4.Severe atherosclerosis with an abdominal aortic aneurysm 5.Chronic pancreatitis This exam was performed using automated exposure control, adjustment of mA or kV according to patient size, and/or use of iterative reconstruction technique. Electronically signed by Kofi Nolasco 12/12/2018 2:43 PM
--- NOTE | 2018-12-12 14:48 | GENERAL SURGERY PROGRESS NOTE ---
DATE: 12/12/2018 SUBJECTIVE: She is 9 days after laparotomy, small bowel resection, sigmoid resection and Ellis's. She is not taking much by mouth, so she continues on TPN. Her temp is 98.9 degrees, heart rate 115, blood pressure 140/61, respiratory rate is 18. She really does not have much at her stoma at all. Her drain appears to be serosanguineous. Her midline wound looks acceptable. White count is 13,000, hemoglobin 8.3, hematocrit 27. Gases on 2 L; she has a PO2 of 70. Potassium is 3.9, BUN 22, creatinine 0.4. Sugars were in the low 100s. ASSESSMENT: We will continue with supportive care. Encourage her to take oral intake as she can, but we will have to continue total parenteral nutrition because of her poor oral intake. cc: Kyaw Pennington MD
[2018-12-12] MEDS: TPN ELECTROLYTES IV SCH ×9 (17:02)
[2018-12-12] MEDS: POTASSIUM CHLORIDE IV SCH ×9 (17:02)
[2018-12-12] MEDS: [UNRECOGNIZED DRUG - OTHER] IV SCH ×9 (17:02)
[2018-12-12] MEDS: MAGNESIUM SULFATE IV SCH ×9 (17:02)
[2018-12-12] MEDS: LIPOSYN 20% 250 ML IV SCH (17:02)
[2018-12-12] MEDS: OFIRMEV 1000 MG/ISOTONIC SOLN 1,000 MG/100 ML BOTTLE IV PRN (20:27)
[2018-12-13] MEDS: NORCO-10 PO PRN ×5 (01:34→21:10)
[2018-12-13] MEDS: MORPHINE IV PRN ×5 (02:25→17:54)
[2018-12-13] MEDS: XOPENEX NEB INH SCH ×6 (03:12→22:36)
[2018-12-13] MEDS: ATROVENT NEB INH SCH ×6 (03:13→22:36)
[2018-12-13 03:25] LABS: ALLEN TEST YES; BE 3.3 mmoll (-3.0-3.0); BLOOD TYPE ARTERIAL; HCO3-(ACT) 27.5 mmoll (20.0-26.0); METHB 1.2 % (0.0-1.5); MODALITY CANNULA; O2(CT) 12.1 mL/dL (15.0-23.0); O2HB 94.6 % (95.0-99.0); PCO2(98.6) 33 mmHg (35-45); PO2(98.6) 74 mmHg (60-100); SAMPLE BLOOD; SAO2 97.1 % (95.0-100.0); pH(98.6) 7.51 (7.35-7.45)
[2018-12-13] MEDS: HEPARIN SUBQ SCH ×4 (04:01→21:09)
[2018-12-13] MEDS: HUMULIN R SUBQ SCH ×6 (05:00→21:01)
[2018-12-13] MEDS: OFIRMEV 1000 MG/ISOTONIC SOLN 1,000 MG/100 ML BOTTLE IV PRN ×2 (05:25→10:51)
[2018-12-13 08:00] LABS: AGAP 15; ALB/GLOB RATIO 0.7; ALBUMIN 2.8 g/dL (3.5-5.0); ALKALINE PHOSPHATASE 136 U/L (32-104); BUN 30 mg/dL (8-22); CALCIUM 8.7 mg/dL (8.8-10.2); CHLORIDE 97 mmol/L (98-107); COSMO 280; CREATININE 0.5 mg/dL (0.5-0.9); ESTIMATED GFR > 60; GLUCOSE 135 mg/dL (70-104); GOT 19 U/L (10-30); GPT 16 U/L (10-36); POTASSIUM 3.8 mmol/L (3.5-5.1); SODIUM 136 mmol/L (136-145); TCO2 24 mmol/L (25-35); TOTAL BILIRUBIN 0.35 mg/dL (0.20-1.00); TOTAL PROTEIN 6.9 g/dL (6.3-8.3)
[2018-12-13] MEDS: PROTONIX IV SCH (08:15)
[2018-12-13] MEDS: SODIUM CHLORIDE 0.9% INJ SCH (08:15)
--- NOTE | 2018-12-13 09:32 | GENERAL SURGERY PROGRESS NOTE ---
DATE: 12/13/2018 Ms. Lee is afebrile, heart rate 101, respiratory rate 18, blood pressure 142/66. She is awake and alert this morning, much better than yesterday. She is about to eat breakfast. Her drain is serous primarily. She has had little out her stoma. She is requesting her Ativan at night and she is also requesting a change in pain medicine from [place] to Percocet. She has apparently been on [place] for years at home. cc: Kyaw Pennington MD
[2018-12-13 09:35] LABS: MAGNESIUM 2.1 mg/dL (1.5-2.7); PHOSPHORUS 3.7 mg/dL (2.7-4.5)
--- NOTE | 2018-12-13 10:26 | Diag Imaging Result Doc PS360 ---
EXAM: CHEST-PORTABLE - 12/13/2018 HISTORY: ET tube placement TECHNIQUE: Portable chest COMPARISON: 12/12/2018 FINDINGS: The patient does not appear to have an endotracheal tube. Central venous catheter remains in place. There is stable borderline cardiomegaly. There is pulmonary edema which is overall similar to prior. There is some apparent increase in edema at the right lower lobe, but apparent decrease in edema at the left lower lung. There is no pneumothorax identified. IMPRESSION: The patient does not appear to have an endotracheal tube. There are findings of pulmonary edema similar to prior. Electronically signed by Vin Conroy 12/13/2018 10:24 AM
[2018-12-13] MEDS: MYCAMINE 100 MG in NS 100 ML IV SCH (11:51)
--- NOTE | 2018-12-13 12:10 | PROGRESS NOTE ---
DATE: 12/13/2018 SUBJECTIVE: This morning, Ms. Lee referred to be doing a lot better. Still hurting, but not like yesterday. Her daughter, who was at the bedside, was requesting that we change her Lazbuddie to Percocet because she has been on the Lazbuddie for a very long time, and she thinks that Ms. Lee has been immune to the Lazbuddie. She is also requesting that we start her on her Klonopin. OBJECTIVE: Vital Signs: Blood pressure is 142/66, pulse of 101, respirations 18, temperature 98.5 degrees. General: Ms. Lee is an 78-year-old female. She is in bed. No distress. HEENT: Mucosa is pink and moist. Anicteric. Acyanotic. Neck: Supple. No JVD. Respiratory: Air entry is bilaterally reduced, but there were no crackles, no rhonchi. Cardiovascular: Regular rate and rhythm. No murmurs, no rubs, no gallops. GI: Abdomen is soft, minimally tender around the surgical incision, which is well affronted in the midline. Mild erythematous changes around the lower sutures. There are two ISREAL drains in place, each with mild serosanguineous peritoneal fluid. Ostomy on the left side has had some greenish fecal material. Extremities: No pedal edema. WORK ORDER DETAILER: The patient is awake, alert, and oriented. LABORATORY DATA: Chemistry this morning is unremarkable. There is no CBC. ASSESSMENT: 1. Septic shock secondary to peritonitis. 2. Peritonitis with fecal contamination from sigmoid colon perforation. The patient is status post exploratory laparotomy with open sigmoid resection and end colostomy. Today is day 9. 3. Acute on chronic hypoxemic respiratory failure after abdominal surgery. Today is day 5 post extubation. The patient is on nasal cannula. 4. Severe chronic obstructive pulmonary disease. We will restart the patient back on her roflumilast. 5. Bibasilar infiltrate concerning for pneumonia. Will continue with her Zyvox. 6. Protein calorie malnutrition. The patient is on supplement. 7. Systolic dysfunction with ejection fraction of 30%. The patient is currently euvolemic. 8. Chronic pain syndrome. The patient is on Lazbuddie and Klonopin at home. The daughter was requesting Percocet instead. I did, however, notify her that Ms. Lee seems to be quite stable on her regimen, and I think we will keep her on that, and let her primary care make those changes if they are deemed necessary. 9. Postoperative ileus. The patient seems to be putting out some fecal material in the ostomy today. We will continue with bowel regimen, and encourage the patient to be mobile. 10. Generalized weakness and deconditioning. Physical Therapy has been consulted, and we will also consult Social Work to look for rehab place for Ms. Lee. cc: Artemio Disla MD
[2018-12-13] MEDS: MIRALAX PO SCH (12:22)
[2018-12-13] MEDS: ZYVOX 600 MG/D5W 600 MG/300 ML IVPB IV SCH (13:01)
[2018-12-13] MEDS: KLONOPIN PO SCH ×2 (13:30→21:10)
--- NOTE | 2018-12-13 14:03 | INFECTIOUS DISEASE PROGRESS NO ---
DATE: 12/13/2018 PRESENT ILLNESS: The patient has peritonitis secondary to colonic perforation that I think has resolved. On CT scan of the abdomen and pelvis, she was found to have chronic pancreatitis and bibasilar pneumonia. MEDICATIONS: The patient was on Zosyn that was discontinued 2 days ago. This is day 6 of treatment with Zyvox and micafungin. PHYSICAL EXAMINATION: Vital Signs: Temperature is 97.6 degrees, pulse 98, respirations 16, blood pressure 123/57. General: This is an ill-appearing elderly female. She is in no acute distress, although she says she hurts all over. Head/eyes/ears/nose/throat: She can hear my spoken words and see near objects. I did not see any white coating on her tongue. Neck: The patient has a right-sided internal jugular venous catheter in place. The site is not erythematous or purulent. Thorax with increased AP diameter of the chest. Lungs: Clear to auscultation. Thorax: This patient as increased AP diameter of the chest. Cardiovascular: Heart rate is regular. Abdomen: Soft and not tender to light palpation. The patient's incision is intact. The patient also has [address] Their sites are not erythematous or purulent. The patient has an ostomy which is functioning well. LAB AND X-RAY: CBC shows a white count of 13,400, hemoglobin 8.3, platelet count 678,000. Blood gases show a pH of 7.51, PO2 of 74 and a pCO2 of 33. Creatinine is 0.5. GFR is greater than 60. Alkaline phosphatase is 136. Chest x-ray shows pulmonary edema. As mentioned above, CT scan of the abdomen shows the patient has bibasilar pneumonia, gallstones, and chronic pancreatitis. ASSESSMENT AND PLAN: I think the patient's infections have cleared despite what was found on the CT scan where a bibasilar pneumonia was seen. The white count is coming down. I had stopped Zosyn 2 days ago, and today I am going to stop the Zyvox and micafungin. I am going to tomorrow get a procalcitonin level and also repeat the patient's CBC. COMORBIDITIES: The patient is elderly. She has chronic obstructive pulmonary disease and diabetes mellitus. cc: Gregory Raymond MD
[2018-12-13] MEDS: MAGNESIUM SULFATE IV SCH ×9 (16:45)
[2018-12-13] MEDS: [UNRECOGNIZED DRUG - OTHER] IV SCH ×9 (16:45)
[2018-12-13] MEDS: POTASSIUM CHLORIDE IV SCH ×9 (16:45)
[2018-12-13] MEDS: TPN ELECTROLYTES IV SCH ×9 (16:45)
[2018-12-13] MEDS: LIPOSYN 20% 250 ML IV SCH (18:22)
[2018-12-13] MEDS: COREG PO SCH (21:09)
[2018-12-13] MEDS: CRESTOR PO SCH (21:09)
[2018-12-14] MEDS: MORPHINE IV PRN ×3 (00:03→14:24)
[2018-12-14] MEDS: HUMULIN R SUBQ SCH ×6 (01:40→21:39)
[2018-12-14] MEDS: NORCO-10 PO PRN ×5 (01:48→21:29)
[2018-12-14] MEDS: ATROVENT NEB INH SCH ×6 (03:24→23:28)
[2018-12-14] MEDS: XOPENEX NEB INH SCH ×6 (03:24→23:27)
--- NOTE | 2018-12-14 05:56 | GENERAL SURGERY PROGRESS NOTE ---
DATE: 12/14/2018 SUBJECTIVE: Patient moved up to the floor from the ICU. She is still complaining of some abdominal pain. She did have a CT scan over the weekend, which did not show any major intra- abdominal process besides what looks like probably some degree of an ileus. She otherwise is doing okay. OBJECTIVE: Vital Signs: Patient is currently afebrile. Her vital signs are stable. General: No acute distress. Resting comfortably. Cardiovascular: Regular rate and rhythm. Lungs: Grossly clear. Abdomen: Soft. Incision is healing okay. ISREAL drains with serosanguineous output. Ostomy appears to be viable with some output noted. ASSESSMENT AND PLAN: An 78-year-old female, currently postoperative day #11 from open Ellis's procedure with small bowel resection. Postoperative state. At this time, continue supportive care. She may have a slight degree of an ileus. She would be better on TPN. We will continue to monitor. Again, her CT scan over the weekend did not show any major intra-abdominal process occurring so we will continue to monitor and supportive care. cc: Noah Chowdhury MD
[2018-12-14] MEDS: HEPARIN SUBQ SCH ×3 (05:57→21:29)
[2018-12-14 07:11] LABS: BASO# 0.11 X1000 (0.0-0.2); BASO% 1.3 % (0.0-0.8); EOS# 0.26 X1000 (0.0-0.7); EOS% 3.2 % (0.0-10.0); HEMATOCRIT 30.8 % (37.0-47.0); HEMOGLOBIN 9.3 g/dL (12.0-16.0); IMM GRAN# 0.02 X1000 (0.0-0.04); IMM GRAN% 0.2 % (0.0-0.5); LYMPH# 1.69 X1000 (1.2-3.4); LYMPH% 20.7 % (20.5-51.1); MCH 25.7 PG (27-31); MCHC 30.2 g/dL (33-37); MCV 85.1 FL (81-99); MONO# 0.64 X1000 (0.11-0.59); MONO% 7.8 % (1.7-9.3); MPV 9.8 FL (7.4-10.4); NEUT# 5.45 X1000 (1.4-6.5); NEUT% 66.8 % (42.2-75.2); PLT 724 X1000 (130-400); RBC 3.62 XMIL (4.2-5.4); RDW 25.7 % (11.5-14.5); WBC 8.17 X1000 (4.8-10.8)
[2018-12-14 07:33] LABS: AGAP 13; ALB/GLOB RATIO 0.6; ALBUMIN 2.6 g/dL (3.5-5.0); ALKALINE PHOSPHATASE 127 U/L (32-104); BUN 31 mg/dL (8-22); CALCIUM 8.8 mg/dL (8.8-10.2); CHLORIDE 98 mmol/L (98-107); COSMO 274; CREATININE 0.4 mg/dL (0.5-0.9); ESTIMATED GFR > 60; GLUCOSE 124 mg/dL (70-104); GOT 18 U/L (10-30); GPT 14 U/L (10-36); POTASSIUM 4.6 mmol/L (3.5-5.1); SODIUM 133 mmol/L (136-145); TCO2 22 mmol/L (25-35); TOTAL BILIRUBIN 0.35 mg/dL (0.20-1.00); TOTAL PROTEIN 7.2 g/dL (6.3-8.3)
[2018-12-14 07:44] LABS: MAGNESIUM 2.1 mg/dL (1.5-2.7); PHOSPHORUS 3.1 mg/dL (2.7-4.5)
[2018-12-14] MEDS: SODIUM CHLORIDE 0.9% INJ SCH (08:13)
[2018-12-14] MEDS: COREG PO SCH ×2 (08:13→21:29)
[2018-12-14] MEDS: PROTONIX IV SCH (08:13)
[2018-12-14] MEDS: KLONOPIN PO SCH ×2 (08:13→21:29)
[2018-12-14] MEDS: MIRALAX PO SCH (08:14)
[2018-12-14] MEDS: DALIRESP PO SCH (08:16)
--- NOTE | 2018-12-14 11:16 | GASTROENTEROLOGY PROGRESS NOTE ---
DATE: 12/14/2018 SUBJECTIVE: Ms. Lee 78 year old female resting in bed complaining of abdominal pain, family at the bedside. Denied any nausea or vomiting. She is tolerating her diet fairly well. OBJECTIVE: Vital Signs: Temperature 97.8 degrees, pulse 95, respirations 18, blood pressure is 144/62, and oxygen is 97%. She is on 2 L nasal cannula. Her weight is 110 pounds. BMI is 20.1 kg/m2. General: She is alert and oriented x3, and in no acute distress. HEENT: Pale conjunctivae. No icterus. PERRL. Neck: Supple. Abdomen: Mildly distended and midline incision dressing is removed. [place] are intact. Colostomy on the left side of the abdomen with one ISREAL drain. Extremities: No cyanosis, clubbing, or edema. Pedal pulses 2+ present bilaterally. Neurological: Alert and oriented x3. LABORATORY DATA: WBCs 8.17, RBC is 3.62, hemoglobin is 9.3, hematocrit is 30.8, and platelet count is 724,000. A pH is 7.5, pCO2 is 33, PO2 74, HC03 is 27.5. Sodium is 133, potassium is 4.6, chloride is 98, carbon dioxide 22, anion gap 13, BUN is 31, creatinine is 0.4, glucose is 124, calcium is 8.8, phosphorus 3.1, magnesium is 2.1, total bilirubin is 0.35, AST is 18, ALT 14, and alkaline phosphatase is 127. IMPRESSION AND PLAN: GI bleed Abdominal pain Anemia Peritonitis Malnutrition Colon perforation Fecal contamination of the abdomen Status post colectomy and colostomy placement Acute hypoxia with hypoxic respiratory failure Pneumonia COPD Diabetes History of smoking PLAN: We will continue to follow the current plan of care. The patient is still receiving her TPN for nutrition. She is on GI prophylaxis Protonix 40 mg IV daily and bowel regimen bowel MiraLAX 17 g daily. We will continue to watch patient's hemoglobin and hematocrit. Today, it was 9.3 and 30.8, which has been trending upwards. We will continue to follow the plan of care per primary care team, infectious disease, event executive, and the surgeon. Advised patient to be out of bed and sit in chair for meals. Patient and family verbalizes understanding of the instructions. This plan was discussed with Dr. Davis. Please call us for any further questions or concerns. Dictated by FLORENTIN Lopes for Haroon Davis MD cc: Haroon Davis MD I have seen and examined the patient myself and I agree with the above plan of care. Discussed the above with the patient and family and all questions were answered. Please call us with any further questions. STONEY
--- NOTE | 2018-12-14 14:33 | PROGRESS NOTE ---
DATE: 12/14/2018 SUBJECTIVE: This morning, Ms. Lee refers to be doing a lot better. The daughter was at the bedside at the time of the encounter. The dietitian, was also at the bedside. OBJECTIVE: Current Vital Signs: Blood pressure is 129/52, pulse of 85, respirations are 18, temperature is 97.6 degrees. General Examination: Ms. Lee is an 78-year-old, female. She is in bed. Not seemingly distressed. Mucosa is pink and moist. Anicteric. Acyanotic. Neck: Supple. Chest was clear to auscultation. No crepitations. No rhonchi. Cardiovascular: Regular rate and rhythm. There were no murmurs, no rubs, no gallops. GI: Abdomen was soft. Minimally tender around the incision site. There was a midline incision which was well-affronted with surgical clips. The right ISREAL drain is removed. The left ISREAL drain is still in place. Ostomy on the left side has some fecal material. Extremities: No pedal edema. Laboratory Data: Has been reviewed. WBC is 8.17, hemoglobin is 9.3, platelet count of 724,000. Chemistry is also reviewed and unremarkable. The patient's current medications have all been reviewed. Antimicrobials have all been discontinued. ASSESSMENT AND PLAN: 1. Septic shock on presentation, improved. 2. Peritonitis with fecal contamination from sigmoid colon perforation. Patient is status post exploratory laparotomy with open sigmoid resection and end-colostomy. Today is day 10 postop. 3. Acute on chronic hypoxemic respiratory failure after abdominal surgery. Patient is day 6 post extubation. She is currently on nasal cannula and doing well. 4. Severe chronic obstructive pulmonary disease. The patient is back on her home regimen. 5. Multifocal pneumonia. Patient has been fully treated with antimicrobials. Current antibiotics have all been discontinued. 6. Protein calorie malnutrition. Patient is on low rate total parenteral nutrition and she is also tolerating some oral intake. We will continue to encourage her to increase her oral intake. 7. Systolic dysfunction with ejection fraction of 30%. The patient is currently euvolemic. 8. Chronic pain syndrome, noted. 9. Postoperative ileus. The patient will continue with a bowel regimen. 10. Generalized weakness and deconditioning. Physical therapy is on board. 11. Urinary retention. This has been overcome with a Gloria catheter. We are going to train the bladder today, hopefully to discontinue the catheter. Disposition. Ms. Lee this morning told me that she does not want to go to any rehab and she prefers to go home. So, the plan is hopefully to get her off the total parenteral nutrition between today and tomorrow and also recommend to encourage her physical activity. Hopefully, in the next 48 hours, we can get her home. cc: Artemio Disla MD MTDD
[2018-12-14] MEDS: TPN ELECTROLYTES IV SCH ×9 (16:15)
[2018-12-14] MEDS: [UNRECOGNIZED DRUG - OTHER] IV SCH ×9 (16:15)
[2018-12-14] MEDS: MAGNESIUM SULFATE IV SCH ×9 (16:15)
[2018-12-14] MEDS: POTASSIUM CHLORIDE IV SCH ×9 (16:15)
[2018-12-14] MEDS: LIPOSYN 20% 250 ML IV SCH (17:12)
--- NOTE | 2018-12-14 19:40 | INFECTIOUS DISEASE PROGRESS NO ---
DATE: 12/14/2018 PRESENT ILLNESS: The patient previously had peritonitis secondary to colonic perforation which has resolved. Also on CT scan, there was found chronic pancreatitis and a bibasilar pneumonia. I think that the pneumonia has cleared and the pancreatitis at this time is not causing any symptoms. MEDICATIONS: The patient is off all antibiotics. PHYSICAL EXAMINATION: Vital Signs: Temperature is 97.6 degrees, pulse 85, respirations 18, blood pressure 129/52. General: This is an ill-appearing elderly female. She is in no acute distress. Head/eyes/ears/nose/throat: She can hear my spoken words and see near objects. She does not have any white coating on her tongue. Neck: The patient has a jugular venous catheter in place. The site is not erythematous or purulent. Lungs: Clear to auscultation. Cardiovascular: Heart rate is regular. Thorax: Patient has an increased AP diameter of the chest. Abdomen: Soft and not tender. The patient's incision is intact. One of 2 drains is out. The patient's ostomy is functioning well. LAB AND X-RAY: Chest x-ray shows pulmonary edema. Creatinine is 0.4. GFR is greater than 60. CBC shows a white count of 8170, hemoglobin 9.3, and platelet count 724,000. ASSESSMENT AND PLAN: I think the patient's infections have cleared. I do not think she will need any further antibiotic therapy. I am signing off the patient's case but I will continue to see what the procalcitonin level turns out to be. COMORBIDITIES: The patient is elderly. She has chronic obstructive pulmonary disease and diabetes mellitus. cc: Gregory Raymond MD
[2018-12-14] MEDS: CRESTOR PO SCH (21:28)
--- NOTE | 2018-12-14 22:07 | PULMONOLOGY PROGRESS NOTE ---
DATE: 12/14/2018 SUBJECTIVE: The patient is awake, alert, and conversant. She has had remarkable improvement over the last 4 days. OBJECTIVE: Vital Signs: The patient is afebrile. BP 138/69, heart rate 86, respiratory rate 20, oxygen saturation 100% on 2 L per nasal cannula. HEENT: Pupils are equal and reactive. Oropharynx appears clear. Neck: Supple. Chest: Reveals good air entry bilaterally without wheezing or rhonchi. Cardiac: S1, S2. Abdomen: Soft with positive bowel sounds. Incisions appear to be healing. Drains in place with serosanguineous drainage noted. LABORATORIES: White blood count 8.17, hemoglobin 9.3, platelet count 724,000. Sodium 133, potassium 4.6, chloride 98, bicarbonate 22, BUN 31, creatinine 0.4. IMPRESSION: An 78-year-old with: 1. Severe chronic obstructive pulmonary disease. 2. [id number] hypoxemic respiratory failure. 3. Protein calorie malnutrition. 4. Systolic heart failure with an ejection fraction of 30%. 5. Chronic pain. 6. Status post surgical repair for iatrogenic colonic perforation. 7. Diabetes mellitus. DISCUSSION: An 78-year-old with problems outlined above. She continues to improve. PLAN: 1. Continue bronchial hygiene. 2. P.o. intake as tolerated. We will continue TPN with current ileus. 3. Continue DVT prophylaxis. 4. Continue gastric acid suppression. 5. Anticipate the need for rehab stay at the time of discharge. cc: Daniel Rodriguez MD
[2018-12-15] MEDS: NORCO-10 PO PRN ×5 (02:38→22:10)
[2018-12-15] MEDS: HUMULIN R SUBQ SCH ×6 (02:57→21:56)
[2018-12-15] MEDS: ATROVENT NEB INH SCH ×6 (03:20→23:14)
[2018-12-15] MEDS: XOPENEX NEB INH SCH ×6 (03:20→23:13)
[2018-12-15] MEDS: HEPARIN SUBQ SCH ×3 (05:56→22:04)
[2018-12-15] MEDS: MORPHINE IV PRN ×4 (05:56→22:32)
[2018-12-15 06:55] LABS: PREALBUMIN 29.9 mg/dL (20-40)
[2018-12-15 06:57] LABS: AGAP 11; ALB/GLOB RATIO 0.7; ALBUMIN 2.7 g/dL (3.5-5.0); ALKALINE PHOSPHATASE 129 U/L (32-104); BUN 30 mg/dL (8-22); CALCIUM 8.9 mg/dL (8.8-10.2); CHLORIDE 102 mmol/L (98-107); COSMO 278; CREATININE 0.4 mg/dL (0.5-0.9); ESTIMATED GFR > 60; GLUCOSE 127 mg/dL (70-104); GOT 18 U/L (10-30); GPT 13 U/L (10-36); POTASSIUM 4.6 mmol/L (3.5-5.1); SODIUM 135 mmol/L (136-145); TCO2 22 mmol/L (25-35); TOTAL BILIRUBIN 0.29 mg/dL (0.20-1.00); TOTAL PROTEIN 6.7 g/dL (6.3-8.3)
--- NOTE | 2018-12-15 07:19 | GENERAL SURGERY PROGRESS NOTE ---
DATE: 12/15/2018 SUBJECTIVE: Patient had one of her Mohan-Williamson drains accidentally removed through the course of the day yesterday. OBJECTIVE: Vital Signs: Patient is currently afebrile. Vital signs stable. General: No acute distress resting. Cardiovascular: Regular rate and rhythm. Lungs: Grossly clear. Abdomen: Soft, appropriately tender. Ostomy appears viable. There is some liquid in the appliance. ASSESSMENT AND PLAN: 78-year-old female, currently postoperative day #12 from open Ellis's procedure and small bowel resection; 1. Postoperative state. At this time continue supportive care. Looks as though for the most part her p.o. intake has been low. She is on total parenteral nutrition, so she is getting some nutrition. 2. Her albumin yesterday was low at 2.6. The most recent pre-albumin was on the it was 18.6. 3. At this point, continue supportive care. Continue total parenteral nutrition for protein malnutrition. We will monitor her. cc: Noah Chowdhury MD
[2018-12-15] MEDS: COREG PO SCH ×2 (08:21→22:04)
[2018-12-15] MEDS: DALIRESP PO SCH (08:21)
[2018-12-15] MEDS: PROTONIX IV SCH (08:21)
[2018-12-15] MEDS: MIRALAX PO SCH (08:22)
[2018-12-15] MEDS: SODIUM CHLORIDE 0.9% INJ SCH (08:22)
--- NOTE | 2018-12-15 13:04 | INFECTIOUS DISEASE PROGRESS NO ---
DATE: 12/15/2018 The patient's procalcitonin level came back, it was less than 0.10, therefore, this seems to confirm that the patient's pneumonia has cleared up. cc: Gregory Raymond MD
--- NOTE | 2018-12-15 14:55 | PROGRESS NOTE ---
DATE: 12/15/2018 Today Ms. Lee refers to be doing fairly okay, she continued just to be biting on her meals but not having a whole lot. However this morning is reported that she had 75% of her breakfast and 50% of her lunch. OBJECTIVE: Vitals: Blood pressure is 144/64, pulse of 73, respiration is 16, temperature 97.8 degrees. General: Ms. Lee 78-year-old female she was in bed, no distress. Mucosa is pink and moist. Anicteric. Acyanotic. Neck: Supple. Chest: Clear to auscultation. No crepitations, no rhonchi. Cardiovascular: Regular rate and rhythm. There was no murmurs, no rubs, no gallops. Abdomen: Soft, minimally distended in the lower abdomen. There is a midline incision which looks well affronted with surgical clips. There is a left lower abdomen ISREAL drain. Ostomy was also in place and it had a lot of fecal material. Extremities: No pedal edema. AUTO TECH: Patient was awake, alert and oriented. LABORATORY DATA: No CBC today. Chemistry reviewed unremarkable for most part. CURRENT MEDICATIONS: Have also been reviewed and she is currently not on any antimicrobial therapy. ASSESSMENT: 1. Septic shock during the hospital course improved. 2. Peritonitis with fecal contamination from sigmoid colon perforation, patient is status post exploratory laparotomy with open sigmoid resection and end colostomy. Today day 11 postop. 3. Acute on chronic hypoxemic respiratory failure after abdominal surgery resolved. Patient is day 7 post extubation. 4. Severe chronic obstructive pulmonary disease. Patient is back on her home medications. 5. Multifocal pneumonia resolved. 6. Protein calorie malnutrition. Patient continues to be on TPN but looks like she is increasing in her oral intake. 7. Systolic dysfunction with ejection fraction of 30%, patient is currently euvolemic. 8. Chronic pain syndrome noted. 9. Postoperative ileus improving. 10. Generalized weakness and deconditioning. Physical therapy is on board. 11. Urinary retention overcome by Gloria catheter placement. The bladder was retrained yesterday and the catheter is out. Patient is making adequate urine I am told. So in general I think Ms. Lee is gradually doing better. Physical therapy did see her yesterday. We are pending the evaluation today. I think there the long-term plan is to get Ms. Lee home since she has declined to wanting to go to a rehab. Hopefully within the next 24 hours we can discontinue the TPN and get her on a stable oral diet regimen. cc: Artemio Disla MD MTDD
[2018-12-15] MEDS: KLONOPIN PO SCH ×2 (15:03→22:10)
[2018-12-15] MEDS: TPN ELECTROLYTES IV SCH ×9 (16:25)
[2018-12-15] MEDS: POTASSIUM CHLORIDE IV SCH ×9 (16:25)
[2018-12-15] MEDS: [UNRECOGNIZED DRUG - OTHER] IV SCH ×9 (16:25)
[2018-12-15] MEDS: MAGNESIUM SULFATE IV SCH ×9 (16:25)
[2018-12-15] MEDS: LIPOSYN 20% 250 ML IV SCH (16:25)
[2018-12-15] MEDS: CRESTOR PO SCH (22:04)
[2018-12-16] MEDS: HUMULIN R SUBQ SCH ×4 (01:05→13:35)
[2018-12-16] MEDS: XOPENEX NEB INH SCH ×6 (03:06→23:22)
[2018-12-16] MEDS: ATROVENT NEB INH SCH ×6 (03:06→23:22)
[2018-12-16] MEDS: NORCO-10 PO PRN ×5 (03:49→18:56)
[2018-12-16] MEDS: MORPHINE IV PRN ×4 (04:48→23:56)
[2018-12-16] MEDS: HEPARIN SUBQ SCH ×3 (05:06→23:55)
--- NOTE | 2018-12-16 05:59 | GENERAL SURGERY PROGRESS NOTE ---
DATE: 12/16/2018 SUBJECTIVE: Patient seems to be doing okay. OBJECTIVE: Vital Signs: Patient is currently afebrile. Her vital signs are stable. General: No acute distress. Cardiovascular: Regular rate and rhythm. Lungs: Grossly clear. Abdomen: Soft, appropriately tender. Some bowel sounds auscultated. Ostomy appears viable. ISREAL drain with minimal output. LABORATORY DATA: None this morning as of yet. ASSESSMENT AND PLAN: An 78-year-old female, currently postoperative day #13 from open Ellis's procedure with small-bowel resection. Postoperative state. At this time, continue supportive care. I think she still has some degree of an ileus. We will continue to monitor her. If her Mohan-Williamson drain still continues to have low output, we will consider removing it in the next day or 2. Otherwise, continue supportive care. cc: Noah Chowdhury MD
[2018-12-16 06:26] LABS: AGAP 9; ALB/GLOB RATIO 0.7; ALBUMIN 2.9 g/dL (3.5-5.0); ALKALINE PHOSPHATASE 111 U/L (32-104); BUN 28 mg/dL (8-22); CALCIUM 8.4 mg/dL (8.8-10.2); CHLORIDE 103 mmol/L (98-107); COSMO 277; CREATININE 0.4 mg/dL (0.5-0.9); ESTIMATED GFR > 60; GLUCOSE 125 mg/dL (70-104); GOT 17 U/L (10-30); GPT 13 U/L (10-36); POTASSIUM 4.3 mmol/L (3.5-5.1); SODIUM 135 mmol/L (136-145); TCO2 23 mmol/L (25-35); TOTAL BILIRUBIN 0.28 mg/dL (0.20-1.00); TOTAL PROTEIN 6.8 g/dL (6.3-8.3)
[2018-12-16] MEDS: MIRALAX PO SCH ×2 (07:57→08:56)
[2018-12-16] MEDS: PROTONIX IV SCH ×2 (07:57→08:56)
[2018-12-16] MEDS: SODIUM CHLORIDE 0.9% INJ SCH (07:57)
[2018-12-16] MEDS: COREG PO SCH ×3 (07:57→23:55)
[2018-12-16] MEDS: DALIRESP PO SCH ×2 (07:57→08:56)
[2018-12-16] MEDS: KLONOPIN PO SCH ×3 (08:01→23:55)
[2018-12-16] MEDS: OFIRMEV 1000 MG/ISOTONIC SOLN 1,000 MG/100 ML BOTTLE IV PRN (10:24)
--- NOTE | 2018-12-16 10:38 | GASTROENTEROLOGY PROGRESS NOTE ---
DATE: 12/16/2018 SUBJECTIVE: Ms. Lee is an 78-year-old female. She was sitting in the bed, feeling much better, Family at the bedside. She has denied any nausea, vomiting and was able to tolerate her breakfast well. Patient looked happy and stated that she was ready to go home. OBJECTIVE: Vital Signs: Temperature 97.9 degrees, pulse is 82, respirations 16, blood pressure 139/67, oxygen saturation is 98% on 2 L nasal cannula. Her weight is 107 pounds. BMI is 19.6 kg/m2. General: She is alert and oriented x3, in no acute distress. HEENT: Pale conjunctivae. No icterus. PERRL. Neck: Supple. Lungs: Clear to auscultation in the anterior rothman. Cardiovascular: Regular rate and rhythm. Abdomen: Soft, tender, Mildly distended in the lower quadrants. Midline incision is dry, and thu are intact. She has a ISREAL drain draining minimal fluid, and ostomy on the left side. Extremities: No cyanosis, clubbing, or edema. Pedal pulses 2+ present. Neurologic: Alert, oriented x3. LABORATORY DATA: The patient's hematology from 12/14/2018 shows WBC 8.7, RBC 3.62, hemoglobin is 9.3, hematocrit is 30.8, platelet count is 724,000. Her chemistry from today shows sodium is 135, potassium is 4.3, chloride is 103, carbon dioxide is 23, anion gap is 9, BUN is 28, creatinine is 0.4, glucose is 125, calcium is 8.4. Total bilirubin is 0.28, AST 17, ALT 13, and alkaline phosphatase on 111. IMPRESSION: 1. Gastrointestinal bleed. 2. Abdominal pain. 3. Anemia. 4. Peritonitis. 5. Malnutrition. 6. Colon perforation. 7. Fecal contamination of the abdomen s/p colectomy and colostomy placement. 8. Acute hypoxia with hypoxic respiratory failure. 9. Pneumonia. 10. Chronic obstructive pulmonary disease. 11. Diabetes. 12. History of smoking. PLAN: We will continue to follow the current plan of care. The patient is still on TPN for her nutrition. She is able to tolerate her diet well. We will continue with her GI prophylaxis, Protonix IV daily and her bowel regimen MiraLAX 17 grams p.o. daily. We will continue to follow the plan of care per primary care team, Infectious Disease, and the surgeon. We have advised the patient to sit upright for meals, and out of bed twice a day. The patient and family verbalized understanding of the instructions. This plan was discussed with Dr. More. Please call us for any further questions or concerns. Dictated by FLORENTIN Lopes for Valentino More MD Physician Attestation I have seen and examined the patient. I have discussed and reviewed the the note by Mony LERMA and agree with findings and plan as documented. In brief, Ms. Hortensia Lee is a 78 year old woman admitted with rectal bleeding likely diverticular. Her course complicated colonic perforation with peritonitis in setting of colonoscopy s/p ex-lap with sigmoidectomy, end-colostomy, and takedown of enterocolonic fistula, pneumonia, and hypoxic respiratory failure s/p extubation. She has improved significantly and is tolerating oral intake. No GI bleeding. Off antibiotics. Recommend weaning TPN. Continue OOB and PT. Surgery following. Will sign off. Please call with questions. MTDD
--- NOTE | 2018-12-16 16:21 | PROGRESS NOTE ---
DATE: 12/16/2018 SUBJECTIVE: This morning Ms. Lee refers to be doing well. She denies any new complaints. I understand she sat in the chair for about 2 hours today. OBJECTIVE: Vital signs: Blood pressure is 139/67, pulse of 81, respirations 16, temperature is 97.9 degrees. General: Ms. Lee is an 78-year-old female she is in bed no distress. HEENT: Mucosa is pink and moist. Anicteric. Acyanotic. Neck: Supple. There was no JVD. No carotid bruit. Chest: Good air entry bilaterally there was no crepitations no rhonchi. Cardiovascular: Regular rate and rhythm. No murmurs, no rubs, no gallops. She has a right IJ central line in place. Abdomen: Soft, nontender. There is a midline surgical incision which is well affronted with surgical clips. No signs of infection. There is a ISREAL drain in the left side and an ostomy which has some fecal material in the bag. Extremities: No pedal edema. LICENSE INSPECTOR: LICENSE INSPECTOR patient was awake, alert, and oriented. LABORATORY DATA: Chemistry is reviewed. Sodium is 135. Rest of chemistry is unremarkable. CURRENT MEDICATIONS: Have all been reviewed. She is not on any antimicrobial therapy for now. ASSESSMENT: 1. Septic shock. During the hospital course improved. 2. Peritonitis with fecal contamination from sigmoid colon perforation. The patient is status post exploratory laparotomy with open sigmoid resection and an end colostomy. Today is day date 13 postop. 3. Acute on chronic hypoxemic respiratory failure after abdominal surgery. The patient is day 8 post extubation. She is doing remarkably well without oxygen supplementation. 4. Severe chronic obstructive pulmonary disease. 5. Multifocal pneumonia during the hospital course resolved. The patient antimicrobials have been discontinued. 6. Protein calorie malnutrition. Ms Lee has been on total parenteral nutrition for some time. However, her oral intake has progressively gotten better. It has been documented that she is taking more than 75% of her meals. We therefore going to discontinue the total parenteral nutrition and encourage enteral feedings. 7. Systolic dysfunction with ejection fraction of 30%. Patient is currently euvolemic. 8. Chronic pain syndrome. Patient is on home pain medications. Family members have requested a change of norco to oxycodone. I have advised them to review that with the patient PCP who manages her chronic pain 9. Postoperative ileus improved. 10. Generalized weakness and deconditioning. Physical therapy is on board. 11. Urinary retention improved with Gloria catheter placement. The catheter was removed yesterday. Patient has been doing remarkably well without needing catheter anymore. PLAN: So in general Ms. Lee is doing a lot better now. She got admitted on 11/28/2018 today is day 18 day 18 of admission. Ms Lee was initially admitted because of rectal bleed. She initially underwent a colonoscopy with Dr. Maya on 11/30/2018. Unfortunately, during the procedure, there was a perforation. Surgery was consulted by GI and patient was subsequently seen by Dr. Chowdhury. The patient was taken back to OR on 12/03/[address] Chowdhury where an open sigmoid resection with end colostomy (Ellis's procedure) was done. There is mention of fecal material in the peritoneal cavity which was completely cleaned out. Postoperatively . Ms. Lee developed respiratory failure and was on the ventilator for some time. Today is day 8 post extubation. She was also transferred treated for pneumonia, which has completely resolved. During the hospital course Ms Lee developed some postoperative ileus, which has also significantly improved. She is now remarkably weak. I think she would benefit to go for inpatient rehab. However Ms. Lee has declined to go to an inpatient rehab. She is being evaluated by Physical therapy on daily basis here. Her oral intake has significantly improved so we have discontinued the TPN today and she is pending possible discharge within the next 48 hours. cc: Artemio Disla MD MTDD
[2018-12-16] MEDS: CRESTOR PO SCH (23:55)
[2018-12-17] MEDS: NORCO-10 PO PRN ×4 (02:44→15:40)
[2018-12-17] MEDS: ATROVENT NEB INH SCH ×3 (04:36→11:08)
[2018-12-17] MEDS: XOPENEX NEB INH SCH ×3 (04:36→11:08)
[2018-12-17] MEDS: HEPARIN SUBQ SCH ×2 (05:52→15:59)
[2018-12-17] MEDS: MORPHINE IV PRN ×2 (05:52→12:05)
--- NOTE | 2018-12-17 06:25 | GENERAL SURGERY PROGRESS NOTE ---
DATE: 12/17/2018 SUBJECTIVE: Patient seems to be doing okay. Family reports she had a better night. OBJECTIVE: Vital Signs: Patient is currently afebrile. Her vital signs are stable. General: No acute distress. Cardiovascular: Regular rate and rhythm. Lungs: Grossly clear. Abdomen: Soft. Appropriately tender. Ostomy appears viable. There is some stool in it. It seems thicker. ISREAL drain with minimal output and was removed. Incisions seem to be healing well. LABORATORY: None this morning as of yet. ASSESSMENT AND PLAN: An 78-year-old female currently postoperative day #14 from open Ellis's procedure with small-bowel resection. Postoperative state at this time. Continue supportive care. Removed her Mohan-Williamson drain. She does have bowel sounds. I think she is just having somewhat of an ileus, but otherwise continue supportive care. She seems to be eating more. cc: Noah Chowdhury MD
[2018-12-17 06:45] LABS: AGAP 11; ALB/GLOB RATIO 0.7; ALBUMIN 2.6 g/dL (3.5-5.0); ALKALINE PHOSPHATASE 101 U/L (32-104); BUN 26 mg/dL (8-22); CALCIUM 8.5 mg/dL (8.8-10.2); CHLORIDE 105 mmol/L (98-107); COSMO 279; CREATININE 0.5 mg/dL (0.5-0.9); ESTIMATED GFR > 60; GLUCOSE 100 mg/dL (70-104); GOT 15 U/L (10-30); GPT 12 U/L (10-36); POTASSIUM 4.4 mmol/L (3.5-5.1); SODIUM 137 mmol/L (136-145); TCO2 21 mmol/L (25-35); TOTAL BILIRUBIN 0.28 mg/dL (0.20-1.00); TOTAL PROTEIN 6.5 g/dL (6.3-8.3)
[2018-12-17] MEDS: PROTONIX IV SCH (08:02)
[2018-12-17] MEDS: DALIRESP PO SCH (08:02)
[2018-12-17] MEDS: KLONOPIN PO SCH (08:02)
[2018-12-17] MEDS: COREG PO SCH (08:02)
[2018-12-17] MEDS: SODIUM CHLORIDE 0.9% INJ SCH (08:02)
[2018-12-17] MEDS: MIRALAX PO SCH (08:03)
[2018-12-17 12:03] VITALS: BP 129/51
--- NOTE | 2018-12-17 20:40 | GASTROENTEROLOGY PROGRESS NOTE ---
DATE: 12/17/2018 SUBJECTIVE: Patient resting in bed. The patient's family is present at bedside. The patient is doing better. The patient is eating better. She is moving her bowels in the colostomy and she has been afebrile the last 24 hours. OBJECTIVE: Vital signs: Temperature 98 degrees, pulse rate of 83, respiratory rate 20, blood pressure 152/61, saturating 100% 2 L nasal cannula. Body weight 113 pounds 9 ounces. BMI 20.8 kg. General Appearance: Thinly built, lying in bed, in no acute distress. HEENT: Pale conjunctivae. No icterus. Neck: Supple. Abdomen: Colostomy bag noted. Midline incision noted. Extremities: No cyanosis, clubbing. Neurologic: She was sleeping at the time. LABORATORY DATA: Hemoglobin and hematocrit are 9.3 and 30.8 from 12/14/2018. Sodium 137, potassium 4.4, chloride 105, bicarb 21, anion gap was 11, BUN of 26, creatinine 0.5, glucose of 100, calcium is 8.5, total bilirubin is 0.28, AST 15, ALT 12, alkaline phosphatase 101, total protein 6.5, albumin of 2.6. IMPRESSION AND PLAN: An 78-year-old female, admitted with rectal bleeding likely diverticular. Her course was complicated with colonic perforation with peritonitis in setting of colonoscopy status post exploratory laparotomy with sigmoidectomy, end colostomy take down of enterocolonic fistula, small-bowel resection, pneumonia, hypoxia, failure status extubation. She has improved significantly. She is tolerating oral intake. No gastrointestinal bleeding at this time. Her TPN has been discontinued. RECOMMENDATIONS: 1. Continue on MiraLAX once daily for bowel regimen. 2. Continue on Protonix once daily for 3 months and then wean down to Pepcid twice daily as needed. 3. She will continue on IV pain control with morphine. For nausea, she is on IV antiemetics with Zofran. She is on Xopenex inhaler, nebulizer treatment with levalbuterol and ipratropium as she has history of chronic obstructive pulmonary disease. 4. Former smoker. She quit smoking about 6 months ago. 5. Pneumonia. She is off antibiotics. 6. Gastrointestinal bleeding is resolved. 7. Deep venous thrombosis prophylaxis with heparin 5000 units q.8 hours. The above plans discussed with the patient's family at bedside. All questions answered. Will sign off at this time. Please call us for any further questions. cc: MD Sukumar Howell MD Anna M. Dumas, CRNP Dr. Harris James E. Boyle, MD Matthew L. Figh, MD MTDD
--- NOTE | 2018-12-18 05:55 | DISCHARGE SUMMARY ---
ADMISSION DATE: 11/28/2018 DISCHARGE DATE: 12/17/2018 PRIMARY CARE PHYSICIAN: FLORENTIN Lemus. CONSULTATIONS: GI, General Surgery, Infectious Disease, Pulmonology. ADMISSION DIAGNOSES: 1. Gastrointestinal bleed. 2. Microcytic anemia. 3. Diabetes type 2. 4. Chronic obstructive pulmonary disease. 5. Leukocytosis. 6. Aortic stenosis. 7. Chronic back pain. 8. Hyperkalemia. DISCHARGE DIAGNOSES: 1. Septic shock, resolved. 2. Peritonitis with fecal contamination from sigmoid colon perforation status post exploratory laparotomy with open sigmoid resection and an end colostomy, status post day 14. 3. An acute on chronic hypoxemic respiratory failure after abdominal surgery, day 9 postextubation, resolved. 4. Severe chronic obstructive pulmonary disease. 5. Multifocal pneumonia during the hospital course, resolved. 6. Protein calorie malnutrition. 7. Systolic dysfunction with ejection fraction of 30%, currently euvolemic. 8. Chronic pain syndrome. 9. Postoperative ileus, resolved. 10. Generalized weakness and deconditioning. 11. Urinary retention, improved. SUMMARY OF FINDINGS: This is an 78-year-old female who presented to the emergency room with family after the patient was noted to be having a massive amount of severe rectal bleeding with blood clots that began on the morning of arrival with some diarrhea that became bloody, full of clots. Began feeling bad the day prior with abdominal cramping associated with nausea, and weakness and poor appetite. States she had rectal bleeding 2 weeks prior, but it resolved on its own. Was admitted to the intensive care unit, placed on clear liquids initially, placed on IV Protonix. Was seen by GI. Had a CT of the abdomen and pelvis on 11/30/2018, noted a small to moderate amount of extraluminal free gas in the abdomen consistent with the given history of a suspected colonic perforation. General Surgery was consulted. A colonoscopy was performed on 11/30/2018, was noted to have a stricture at the rectosigmoid region with diverticulosis in the area, fresh and old blood in the rectum and sigmoid region felt loss of resistance and scope was withdrawn and colon perforation was noted at the rectosigmoid area. Air was suctioned and the scope was withdrawn. Surgery was called in the OR to plan for a stat CT scan. The patient was followed and was stable at that time and wanted to try to proceed with nonoperative management. We did an abdomen x-ray on 12/01/2018 that showed a nonspecific abdomen. We did another abdomen and pelvic CT on 12/03/2018 that showed slight decrease in the peritoneal free air. A new severe distention of the gallbladder was also noted. Infectious Disease was consulted on 12/03/2018. The patient was taken to surgery on 12/03/2018 and had a ultrasound-guided central line placement via the right internal jugular vein, an exploratory laparotomy and open sigmoid resection with end colostomy and a takedown of fistula with small bowel resection with stapled [id number] anastomosis, remained in ICU. Chest x-ray on 12/05/2018 showed an essentially stable chest. The patient had ET tube placement at that time. We have continued to follow this patient throughout. We did another CT of the abdomen and pelvis on 12/12/2018 that did show an ileus and bilateral lower lobe pneumonia with small pleural effusions, and cardiomegaly and chronic pancreatitis. Continued on IV antibiotics. The patient is now 14 days postop and doing much improved. Her multifocal pneumonia has resolved. She has been on TPN throughout this process and her oral intake has progressively gotten better taking more than 75% of her meals. We discontinued the TPN yesterday and she had her Mohan-Williamson drain removed today. Has good bowel sounds and it is felt that she could safely be discharged home with Home Health services. DISCHARGE MEDICATIONS: Coreg 6.25 mg p.o. b.i.d., clonazepam 0.5 mg p.o. b.i.d. MiraLAX 17 g p.o. daily, Daliresp 250 mcg p.o. daily, Crestor 40 mg p.o. at bedtime, Tylenol 650 mg p.o. q.6 hours p.r.n., Ventolin inhaler 2 puffs q.4 hours, Elavil 50 mg p.o. at bedtime p.r.n., aspirin 81 mg p.o. daily, Symbicort 160/4.5 mcg inhaler 2 puffs b.i.d. p.r.n., gabapentin 800 mg p.o. b.i.d., hydrochlorothiazide 12.5 mg p.o. daily, Roy 10 one p.o. q.4 hours p.r.n., Protonix 40 mg p.o. daily. FOLLOW-UP: Follow up with Surgery on 12/25/2018 at 2 p.m. Follow up with GI, Dr. More, Infectious Disease, Dr. Raymond, Pulmonology, Dr. Rodriguez, and with primary care physicians all within the next 1 to 2 weeks. All discharge instructions have been reviewed. Patient verbalized understanding and, again, will have Home Health services. TIME SPENT: This is a 35 minute discharge. Dictated by FLORENTIN Martinez for Sukumar Bucio MD cc: FLORENTIN Martinez MD Michael Kelso, MD Matthew L. Figh, MD Dr. Harris James E. Boyle, MD Anna M. Dumas, CRNP MTDD
== END 2018-12-17 16:13 | disposition home health service (06) | DRG 329 ==
LOC: SUPCPDRO → ED 14:02 → EDIPHOLD 17:11 → SUATTDRO 17:11 → ICU 22:21 → 4N 12-11 15:11
PROVIDERS: ATTEND Internal Medicine
PROC: GE.COLS (2018-12-03 12:46)